=== PATIENT | female | born 1970 | race Caucasian/White ===

== ENCOUNTER → 2016-12-29 | Outpatient (CLI) | payer OTHER ==
[~2016-12-29] MED LIST: DICL100G18 TP; METH10TA2 PO; OXYC-323 PO; PREG150C PO; RIZA10TA PO; TOPI100T8 PO; VENL225T PO
--- NOTE | 2016-12-29 13:09 | PAIN ---
DATE OF SERVICE: 12/29/2016 INITIAL CONSULTATION FOR PAIN CLINIC DATE OF SERVICE: 12/29/2016 CHIEF COMPLAINT: Neck and bilateral shoulders and upper extremity pain. SECONDARY COMPLAINT: Low back pain. HISTORY OF PRESENT ILLNESS: This is a 46-year-old female who presents with history of pain in neck, bilateral upper extremities and shoulders radiating to the arms and also low back pain radiating to the legs at times since about 2003. The patient reports she has been treated at outside facility since that time with diagnosis of cervical stenosis, lumbar stenosis, degenerative disk disease as well as fibromyalgia since that time and has been managed with methadone and oxycodone. The patient reports that this does decrease the pain significantly, but she still has significant pain resulting in a rating of around 7-8 on a scale of 10, most times. The patient reports it does get her through her day. 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 The patient is somewhat frustrated with his situation and has recently [facility] and needs reevaluation of her pain situation today. The patient reports her pain is worse in the base of the neck and shoulders, radiating to the upper extremities to some degree, somewhat worse on the right than the left, but can be just as bad on the left side. The patient reports it awakens her from sleep about 3 or more times at night every night. It does not affect her bowel or bladder control or ability to walk. She also some low back pain, which can keep her from walking farther distances, but usually about 20 minutes she reports she needs to sit and rest. The patient reports very sensitive even to the touch of her low back. Also, has migraine history headaches, fibromyalgia history. The patient has had trigger point injections in the past, also chiropractic treatment on and off, usually causes the pain to be worse. Trigger point, she is not sure if those had helped in the past or not, and they were usually in the shoulders and upper neck and back area. The patient reports disability rating from 0-10, 10 being the worst, is a 7 with family and home responsibilities and social activity, 8 with recreation, 9 with occupation, 10 with sexual behavior, 7 with self care and 5 with life support activities. Again, the patient has had no diagnostic studies at this time. PAST MEDICAL HISTORY: Significant for type 2 diabetes, constipation, headaches, depression and fibromyalgia. PREVIOUS SURGERY: Include x 3 and right knee cyst removed. CURRENT MEDICATIONS: Include methadone 10 mg 2 tablets morning and 2 tablets in the evening, oxycodone 5 mg on a p.r.n. basis, which the patient takes not every day, but sometimes takes 2 at times to decrease the pain when she has been more active; also Lyrica, venlafaxine, topiramate, rizatriptan and Voltaren gel. ALLERGIES: The patient states DURAGESIC PATCH causes nausea. FAMILY HISTORY: Significant for diabetes and some types of cancers. SOCIAL HISTORY: The patient does not smoke, drinks alcohol very rarely, maybe every 6 months or so, is , lives with her spouse, has 2 children living at home and is located in [place], [place], currently not working secondary to pain. REVIEW OF SYSTEMS: The patient's review of systems is positive for those items mentioned in history of present illness. All systems reviewed and otherwise negative. It is complete, full and well documented on the patient's chart. PHYSICAL EXAMINATION: VITAL SIGNS: Today, patient's blood pressure 136/92, pulse 105, respirations 16, temperature 98.3 degrees Fahrenheit, height is 5 feet 7 inches, weight is 212 pounds. GENERAL: The patient is awake, alert, oriented, appropriate, very pleasant demeanor. HEENT: Head shows normocephalic, atraumatic. Extraocular movements are intact and symmetrical. The patient does have some disconjugate gaze in the left eye. Oral cavity, mucous membranes moist and pink. Dentition is intact. NECK: Shows anterior throat supple without palpable lymphadenopathy noted. Swallow reflex is symmetrical. CHEST: Shows normal on inspection. Breath sounds clear to auscultation bilaterally. HEART: Shows S1 and S2 clear. No murmurs auscultated. ABDOMEN: Obese, soft, nontender, nondistended. No palpable organomegaly. No rebound or guarding demonstrated. BACK: The patient's back shows spine grossly midline, normal-appearing cervical lordotic curvature, thoracic kyphotic curvature, and lumbar lordotic curvature. No previous bruises, lesions, rashes or scars are noted. With palpation in the cervical paraspinous musculature shows symmetrical on inspection, but with palpation it is very tender diffusely throughout the middle and lower distribution of paraspinous muscles, some in the upper, but mostly in the middle and lower distributions ____ into the superior medial and lateral trapezius bilaterally, right equal to left, very firm and tender with palpation again diffusely without specific trigger points noted or radiation of pain demonstrated. The patient's back shows some moderate tenderness in the thoracic paraspinous musculature only diffusely again in the upper distribution. Low back shows symmetrical with paraspinous musculature, but with palpation shows significant tenderness bilaterally in the paraspinous muscles diffusely throughout the upper, middle and lower distribution bilaterally without significant radiation or trigger points, but significant pain noted. The patient shows good rotational motion of the lumbar spine, both laterally greater than 10 degrees right and left as well as extension greater than 10 degrees, forward flexion 45 degrees without exacerbation of pain, cervical distribution shows good rotation both laterally greater than 45 degrees, close to 90 degrees right and left with some mild guarding going to the right, but not with extension or flexion. She performs these without difficulty. EXTREMITIES: Upper extremities show deep tendon reflexes at 2+ in the biceps and triceps tendons. Lower extremities are 1+ patellar tendons and tendo calcaneus tendons. Motor exam is strong with petrography teacher strength rated at 5/5 as is biceps and triceps flexion. Lower extremities show 4/5 dorsiflexion, extension, quadriceps and hamstring flexion, but is symmetrical and equal. Peripheral pulses are 2+ in the radial distribution and 1+ posterior tibial and dorsalis pedis. No peripheral edema is noted in any of the extremities. IMPRESSION: 1. This is a 46-year-old female with approximate 12-year plus history of pain in the base of the neck, upper extremities and shoulders, low back, mid back and lower extremities. 2. Migraine headaches. 3. Fibromyalgia. 4. Diabetes. 5. Narcotic management. PLAN: Options were discussed with the patient at length today including conservative medical management, physical therapies, interventional techniques, diagnostic studies. The patient has had no diagnostic studies performed with significant pain and some radicular findings as well in the arms and legs and also has not had any conservative therapies done. We will first start with MRI scan, cervical and lumbar spines, to better differentiate any etiological cause of potential cervicalgia, low back pain and radicular pains in the cervical and lumbar distribution, also we will order physical therapy with water pool therapy to start as soon as possible as I feel she may benefit significantly from this. I also discussed her narcotic regimen. We will refill her methadone as well as oxycodone at this time as prescribed; however, we did discuss weaning these down once her diagnostic studies are obtained and once physical therapy has started. The patient is amenable to this, agrees to the plan. We will also have her urinalysis done today and have narcotic contract signed for medication and with the future weaning. The patient understands and agrees. Follow up in approximately 4 weeks as scheduled. The patient was given instruction as well as side effects to be aware of with medication as well as instructions given regarding the upcoming physical therapy appointments and strengthening and stretching exercises on her own at home. HUONG JOSEPH MD DR: ERIC/radha JOB#: [id number] / [id number]
== END | disposition home or self-care (01) ==
LOC: PNCL 08:40
PROVIDERS: ATTEND Anesthesiology
DX: M51.36 Other intervertebral disc degeneration, lumbar region (principal); G43.909 Migraine, unspecified, not intractable, without status migrainosus; K59.00 Constipation, unspecified; F32.9 Major depressive disorder, single episode, unspecified; E11.9 Type 2 diabetes mellitus without complications; M79.7 Fibromyalgia; M25.511 Pain in right shoulder; M54.2 Cervicalgia
CPT/HCPCS: 99214

== ENCOUNTER → 2017-01-07 | Outpatient (CLI) | payer OTHER ==
--- NOTE | 2017-01-07 11:50 | RAD ---
INDICATION: Chronic neck pain extending into both shoulders. TECHNIQUE: Sagittal T1, sagittal T2, sagittal STIR, axial T2, and axial T2 gradient sequences are provided. No comparison is available. FINDINGS: There is straightening of cervical lordosis. There is no worrisome marrow lesion. There is no endplate edema. There is no cord signal abnormality. The cervicomedullary junction is unremarkable. Degenerative findings by individual level are as follows: C2-C3: There is no canal or foraminal compromise. C3-C4: Minimal disc osteophyte complex is noted. There is minimal canal stenosis with midline AP diameter of 10 mm. There is no foraminal compromise. C4-C5: Disc osteophyte complex with tiny central protrusion is noted. There is mild cord flattening with midline AP diameter of the thecal sac narrowed to 7 mm. There is no foraminal compromise. C5-C6: Disc osteophyte complex with left paracentral protrusion is noted. There is buckling of ligamentum flavum. There is slight cord flattening on the left, midline AP diameter of the thecal sac is narrowed to 8 mm. There is no cord signal abnormality or foraminal narrowing. C6-C7: Disc osteophyte complex with left paracentral protrusion is noted. There is left lateral recess narrowing and mild cord flattening on the left. Midline AP diameter of the thecal sac is narrowed to 7-8 mm. There is no cord hyperintensity. There is no foraminal narrowing. C7-T1: There is no canal or foraminal compromise. Reference lines are not accurate, patient moved between sagittal and axial series. IMPRESSION: Degenerative changes in the cervical spine are greatest from C4-C5 through C6-C7. Electronically signed by: Ryan James MD (01/07/2017 11:47 AM) [id number]
--- NOTE | 2017-01-07 12:04 | RAD ---
INDICATION: Chronic low back pain. TECHNIQUE: Sagittal T1, sagittal T2, sagittal STIR, axial T1, and axial T2 sequences are provided. There is motion degradation greatest on the sagittal T2 sequence. No comparison is available. FINDINGS: There is slight anterolisthesis at L5-S1, there is otherwise no malalignment. There is no worrisome marrow lesion. There is fatty replacement of the endplates at L1-L2. There is disc desiccation greatest from L1-L2 through L3-L4. Disc height is relatively maintained. Conus medullaris is normal in signal intensity and in position. The numbering system assumes 5 lumbar type vertebral bodies. Findings by individual level are as follows: L1-L2: Disc bulge and facet hypertrophy are noted without canal or foraminal compromise. L2-L3: Disc osteophyte complex and minimal facet hypertrophy are noted without canal or foraminal compromise. L3-L4: There is a diffuse disc bulge. There is a herniation on the left which migrates superiorly, is both subarticular and foraminal. This measures 14 mm at its base, 5 mm AP, and 8 mm craniocaudal. There is also facet and ligamentum flavum hypertrophy. There is no canal stenosis, midline AP diameter of the thecal sac is 11 mm. There is left lateral recess narrowing which could explain an L4 radiculopathy. There is also minimal left foraminal narrowing. L4-L5: Minimal disc bulge and facet hypertrophy are noted without canal or foraminal compromise. L5-S1: Minimal disc bulge and facet hypertrophy are noted. There are probably bilateral L5 pars defects. There is no canal stenosis or foraminal compromise. IMPRESSION: 1. Mild degenerative changes in the lumbar spine. This includes a herniation at L3-L4 narrowing the left lateral recess and left neural foramen. 2. Suspected L5 pars defects with slight spondylolisthesis at L5-S1. Electronically signed by: Ryan James MD (01/07/2017 11:57 AM) [id number]
== END | disposition home or self-care (01) ==
LOC: MRI 10:20
PROVIDERS: ATTEND Anesthesiology
DX: M51.36 Other intervertebral disc degeneration, lumbar region (principal); M43.16 Spondylolisthesis, lumbar region; M50.323 Other cervical disc degeneration at C6-C7 level; M25.78 Osteophyte, vertebrae; Z88.4 Allergy status to anesthetic agent
CPT/HCPCS: 72141; 72148

== ENCOUNTER → 2017-02-23 | Outpatient (CLI) | payer OTHER ==
[~2017-02-23] MED LIST changes: +GLYB5TAB3 PO; +IOHEXOL 180 MG/ML 10 ML VIAL. ONE; +METF500T4 PO; +methylPREDNISolone ACETATE 40 MG/ML VIAL. ONE; +methylPREDNISolone ACETATE 80 MG/ML VIAL. ONE
--- NOTE | 2017-02-23 19:15 | PAIN ---
DATE OF SERVICE: 02/23/2017 DIAGNOSES: 1. Cervical radiculopathy with cervical degenerative disk disease. 2. Lumbar radiculopathy with lumbar degenerative disk disease and lumbar herniated disk. HISTORY OF PRESENT ILLNESS: The patient is a 46-year-old female who returns for followup status post cervical epidural steroid injection after medication management with diagnostic studies of MRIs of the cervical and lumbar distribution. The patient reports she did very well after the injection, about 75-100% improvement, 100% initially and now about 75% as time has gone on; it has been about one month since she had the injection. The patient reports still some pain that seems to be coming back in the base of the neck and shoulders, also some in the low back as well. The patient reports the pain as a 9 on a scale 10 at its worst, 8 on average, 6 on a scale of 10 at its least and is a 6 today. The patient reports aching becoming more constant in the base of the neck and shoulder, also more constant in the low back, worse with standing, walking, changing positions. It has been waking her from sleep occasionally, but not every night. She sleeps about 8 hours at a time most nights. She did very well again after the injection with near 100% improvement for about 3 weeks. The patient reports no new motor or sensory deficits, no new bowel or bladder incontinence or other complaints. PHYSICAL EXAMINATION: VITAL SIGNS: Blood pressure is 129/82, pulse 96, respirations 18, temperature 98.2 degrees Fahrenheit, height is 5 feet 5 inches, weight is 212 pounds. GENERAL: The patient is awake, alert, oriented, appropriate, very pleasant demeanor. HEENT: Head shows normocephalic, atraumatic. Extraocular movements are intact, symmetrical. Oral cavity: Mucous membranes moist and pink. Dentition intact. NECK: Shows anterior throat supple without palpable lymphadenopathy noted. Swallow reflex is symmetrical. CHEST: Shows normal with inspection. Breath sounds clear to auscultation bilaterally. HEART: S1, S2 clear. No murmurs auscultated. ABDOMEN: Soft, nontender, nondistended. No palpable organomegaly is noted. No rebound or guarding demonstrated. BACK: Shows spine grossly in the midline. Cervical lordotic curvature is normal and maintained as is lumbar lordotic curvature. Cervical paraspinous muscles show symmetrical on inspection, with palpation show some moderate tenderness with palpation of the inferior aspect of the cervical paraspinous muscles, slightly more on the left than the right, but present bilaterally, also into the lateral trapezius and superior medial trapezius with some moderate tenderness. No trigger points, no radiation of pain. The patient has good rotational motion of the cervical spine, both past 45 degrees right and left rotation as well as extension and forward flexion without difficulty. The patient's low back shows some moderate tenderness with palpation, but inspection shows symmetrical paraspinous musculature, good rotation laterally greater than 10 degrees right and left as well as extension greater than 10 degrees, forward flexion 45 degrees without difficulty. EXTREMITIES: Show upper extremity deep tendon reflexes 2+ in the biceps and triceps tendons. Lower extremities show 1+ patellar and tendo calcaneus tendons. Motor exam is strong with radiology physician assistant strength rated at 5/5 as is bicep, tricep flexion. Lower extremities show 4-5 dorsiflexion, extension, quads and hamstring flexion, but again symmetrical. Peripheral pulses are 2+ radial and 1+ posterior tibial. No peripheral edema is noted. Options were discussed with the patient. The patient's old chart was reviewed as her current medication regimen updated. Current review of systems updated today as well. We will proceed with a second cervical epidural steroid injection today with fluoroscopic guidance. Risks were again discussed including, but not limited to bleeding, infection, possibility of epidural hematoma, subsequent neurologic compromise, dural puncture headaches, spinal cord and/or nerve damage, side effects of steroid medication and poor results regarding pain control. The patient understands and wished to proceed. The patient will return to clinic in approximately 2 weeks for followup, was counseled on return appointment, activity level as well as side effects to be aware of. The patient also has been given refill for methadone 2 tablets in morning and 2 tablets in the evening, 10 mg each. She has been doing fairly well on this without side effects and has had appropriate K-TRACS reporting as well as urinalysis to date. The patient was given instruction as well as side effects to be aware of with medication, and will follow up in approximately 4 weeks as scheduled. DIAGNOSES: 1. Cervical radiculopathy with cervical degenerative disk disease. 2. Lumbar radiculopathy with lumbar degenerative disk disease and lumbar herniated disk. PROCEDURE: Cervical epidural steroid injection, translaminar approach C6 level using C-arm fluoroscopic guidance under sterile prep and drape using local anesthetic. MEDICATION INJECTED: A total of 120 mg Depo-Medrol plus 5 mL preservative-free normal saline and 2 mL Isovue for contrast. CONDITION AT DISCHARGE: Stable. The patient tolerated the procedure well, had no complications. HUONG JOSEPH MD DR: ERIC/radha JOB#: [id number] / [id number]
== END | disposition home or self-care (01) ==
LOC: PNCL 10:35
PROVIDERS: ATTEND Anesthesiology
DX: M50.123 Cervical disc disorder at C6-C7 level with radiculopathy (principal); M51.16 Intervertebral disc disorders with radiculopathy, lumbar region; Z88.5 Allergy status to narcotic agent
CPT/HCPCS: 62321; J1030; J1040

== ENCOUNTER → 2017-03-24 | Outpatient (CLI) | payer OTHER | END | disposition home or self-care (01) | LOC: PNCL 09:46 | DX: M51.16 Intervertebral disc disorders with radiculopathy, lumbar region (principal); M50.10 Cervical disc disorder with radiculopathy, unspecified cervical region; M25.562 Pain in left knee | CPT/HCPCS: 99212 ==

== ENCOUNTER → 2017-05-25 | Outpatient (CLI) | payer OTHER | END | disposition home or self-care (01) | LOC: PNCL 10:46 | DX: M51.16 Intervertebral disc disorders with radiculopathy, lumbar region (principal); M50.10 Cervical disc disorder with radiculopathy, unspecified cervical region; R25.1 Tremor, unspecified | CPT/HCPCS: 99212 ==

== ENCOUNTER → 2017-07-20 | Outpatient (CLI) | payer OTHER | END | disposition home or self-care (01) | LOC: PNCL 11:32 | DX: M51.16 Intervertebral disc disorders with radiculopathy, lumbar region (principal); M50.30 Other cervical disc degeneration, unspecified cervical region | CPT/HCPCS: 99212 ==

== ENCOUNTER → 2017-09-01 | Outpatient (CLI) | payer OTHER ==
[2017-09-01 10:55] LABS: ANION GAP 14 (6-14); BLOOD UREA NITROGEN 17 mg/dL (7-20); CALCIUM 9.1 mg/dL (8.5-10.1); CARBON DIOXIDE 21 mmol/L (21-32); CHLORIDE 103 mmol/L (98-107); CHOLESTEROL 169 mg/dL (0-200); CREATININE 0.8 mg/dL (0.6-1.0); GFR 77.9; GLUCOSE 237 mg/dL (70-99); HDLC 36 mg/dL (40-60); LDLC 63 mg/dL (0-100); NON-HDL CHOLESTEROL 133 mg/dL (0-129); POTASSIUM 3.9 mmol/L (3.5-5.1); SODIUM 138 mmol/L (136-145); TRIGLYCERIDES 351 mg/dL (0-150); VLDLC 70 mg/dL (0-40)
[2017-09-01 10:56] LABS: CHOLESTEROL/HDL RATIO 4.7
== END | disposition home or self-care (01) ==
LOC: LAB 10:17
DX: E11.9 Type 2 diabetes mellitus without complications (principal); E78.2 Mixed hyperlipidemia
CPT/HCPCS: 36415; 80048; 80061; 83036

== ENCOUNTER → 2017-09-14 | Outpatient (CLI) | payer OTHER | END | disposition home or self-care (01) | LOC: PNCL 11:58 | DX: M51.16 Intervertebral disc disorders with radiculopathy, lumbar region (principal); M50.10 Cervical disc disorder with radiculopathy, unspecified cervical region | CPT/HCPCS: 99212 ==

== ENCOUNTER → 2017-10-06 | Outpatient (CLI) | payer OTHER ==
[2017-10-06 12:35] LABS: ADD MAN DIFF? NO
[2017-10-06 12:41] LABS: BASO # 0.1 x10^3/uL (0.0-0.2); BASO % 1 % (0-3); EOS # 0.2 x10^3/uL (0.0-0.7); EOS % 2 % (0-3); LYMPH % 29 % (24-48); MEAN CORPUSCULAR HEMOGLOBIN 29 pg (25-35); MEAN CORPUSCULAR HGB CONC 33 g/dL (31-37); MEAN CORPUSCULAR VOLUME 88 fL (79-100); MONO # 0.5 x10^3/uL (0.0-1.1); MONO % 5 % (0-9); NEUT # 6.4 x10^3uL (1.8-7.7); NEUT % 63 % (31-73); PLATELET COUNT 243 x10^3/uL (140-400); RED BLOOD COUNT 4.81 x10^6/uL (3.50-5.40); RED CELL DISTRIBUTION WIDTH 13.8 % (11.5-14.5); WHITE BLOOD COUNT 10.1 x10^3/uL (4.0-11.0)
[2017-10-06 12:49] LABS: GLUCOSE 302 mg/dL (70-99)
[2017-10-06 12:49] LABS: BLOOD UREA NITROGEN 17 mg/dL (7-20); CREATININE 0.9 mg/dL (0.6-1.0)
[2017-10-06 13:15] LABS: PROTHROMBIN TIME PATIENT 12.3 SEC (11.7-14.0)
[2017-10-06 13:46] LABS: SEDIMENTATION RATE 5 (0-25)
== END | disposition home or self-care (01) ==
LOC: LAB 12:18
DX: G93.2 Benign intracranial hypertension (principal); G43.711 Chronic migraine without aura, intractable, with status migrainosus; E78.2 Mixed hyperlipidemia; E11.9 Type 2 diabetes mellitus without complications
CPT/HCPCS: 36415; 82565; 82947; 84520; 85025; 85610; 85651; 86141

== ENCOUNTER → 2017-11-11 | Outpatient (CLI) | payer OTHER ==
[~2017-11-11] MED LIST changes: -IOHEXOL 180 MG/ML 10 ML VIAL. ONE; -METF500T4 PO; +METF500T5 PO; +METO25TA4 PO; +MILN50TA PO; +TRAZ-85 PO; -methylPREDNISolone ACETATE 40 MG/ML VIAL. ONE; -methylPREDNISolone ACETATE 80 MG/ML VIAL. ONE
--- NOTE | 2017-11-12 04:14 | PAIN ---
DATE OF SERVICE: 11/11/2017 PROGRESS NOTE FOR PAIN CLINIC DIAGNOSES: 1. Lumbar radiculopathy with lumbar herniated disk and lumbar degenerative disk disease. 2. Cervical radiculopathy with cervical degenerative disk disease. HISTORY OF PRESENT ILLNESS: The patient is a 46-year-old female who returns for followup status post medication management with both methadone and Savella. The patient is also taking oxycodone only very sparingly. The patient reports that she has been doing fairly well and her neurologist has been able to get her headache pain much decreased with the addition of metoprolol. The patient reports that she still has pain in the back of the neck and shoulder as well as the upper back, mid back, low back and into the lower extremities. Also, some knee pain on the left side mostly at night. The patient reports no new motor or sensory deficits, no new bowel or bladder incontinence, some constipation as her only complaint, but without any other significant side effects with her medications. The patient reports she has been increasing distance walking and doing household activities with her medications and she is sleeping well at night about 7-8 hours with the medication. The patient reports no new changes. The patient reports pain is constant, severe, unbearable at times, aching, tight in the neck and shoulder as well as in the mid back and low back, worse with activity. The patient reports the pain is a 9 on a scale of 10 at its worst, 8 on average, 7 at its least and is a 7 today. PHYSICAL EXAMINATION: VITAL SIGNS: The patient's blood pressure is 135/85, pulse 87, respirations 16, temperature is 98.4 degrees Fahrenheit and weight is 208 pounds. GENERAL: The patient is awake, alert, oriented, appropriate, very pleasant demeanor. HEENT: Head shows normocephalic and atraumatic. Extraocular movements are intact and symmetrical. Oral cavity: Mucous membranes are moist and pink. Dentition is intact. NECK: Shows anterior throat is supple without palpable lymphadenopathy noted. Swallow reflex is symmetrical. CHEST: Shows normal on inspection. Breath sounds are clear to auscultation bilaterally. HEART: Shows S1 and S2 clear. No murmurs are auscultated. ABDOMEN: Obese, soft, nontender and nondistended. No palpable organomegaly is noted. No rebound or guarding demonstrated. BACK: Shows spine grossly in the midline. Normal appearing thoracic kyphosis, some minor flattening of the lumbar lordotic curvature. Lumbar paraspinous muscle shows symmetrical on inspection. On palpation shows some moderate tenderness bilaterally, but only diffusely throughout the upper, middle and lower distribution of the paraspinous muscles. EXTREMITIES: Lower extremities show deep tendon reflexes 1+ in the patellar and tendo calcaneus tendons are equal. Motor exam is strong with 5/5 dorsiflexion and extension. Peripheral pulses are 1+ posterior tibia. No peripheral edema is noted bilaterally. Options were discussed with the patient. The patient's old chart was reviewed as was her current medication regimen updated. Current review of systems updated today as well. We will refill the patient's methadone for a 2-month period. The patient has had appropriate K-TRACS reporting as well as appropriate urinalysis to date. Also refill oxycodone just 60 tablets of 5 mg size, Savella as well as Voltaren gel. The patient will return to the clinic in approximately 2 months or sooner if necessary. The patient was given instruction as well as side effects to be aware of with each of the medications. We will follow up as scheduled. HUONG JOSEPH MD DR: ERIC/radha JOB#: [id number] / [id number]
== END | disposition home or self-care (01) ==
LOC: PNCL 11:28
PROVIDERS: ATTEND Anesthesiology
DX: M51.16 Intervertebral disc disorders with radiculopathy, lumbar region (principal); M50.30 Other cervical disc degeneration, unspecified cervical region
CPT/HCPCS: 99212

== ENCOUNTER 2017-11-25 08:55 | Outpatient (CLI) | payer OTHER ==
[~2017-11-25 08:55] MED LIST changes: +LIDOCAINE WITH 8.4% SOD BICARB 3 ML DISP.SYRIN. INJ ONE
[2017-11-25 10:00] VITALS: BP 124/74
[2017-11-25 10:30] LABS: CSF PROTEIN 67.1 mg/dL (15.0-45.0)
[2017-11-25 10:47] LABS: CSF CLARITY CLEAR; CSF COLOR COLORLESS; CSF RBC COUNT 178; CSF WBC COUNT 4
[2017-11-25 11:00] VITALS: BP 106/62
[2017-11-25 12:00] VITALS: BP 133/73
[2017-11-25 13:00] VITALS: BP 133/66
--- NOTE | 2017-11-26 14:38 | RAD ---
Fluoroscopically guided lumbar puncture, 11/25/2017: History: Pseudotumor cerebri syndrome Under local anesthesia, aseptic conditions and fluoroscopic guidance a lumbar puncture was performed at the mid L3 level utilizing a 20-gauge spinal needle. The opening pressure was 15cm of water. The CSF was initially blood tinged and quickly cleared. A total of 9 cc of CSF was obtained and sent to the lab. The closing pressure was measured at 12 cm of water. The spinal needle was then removed and hemostasis obtained. 0.8 minutes of fluoroscopy time was utilized. 2 fluoroscopic spot images were recorded. The patient tolerated the procedure well. She will be observed by nursing personnel for 3 hours and then discharged if no problems develop.
[2017-11-27 17:17] LABS: HERPES SIMPLEX TYPE 1 Negative (Negative); HERPES SIMPLEX TYPE 2 Negative (Negative)
== END 2017-11-25 13:06 | disposition home or self-care (01) ==
LOC: RAD 08:55
PROVIDERS: ATTEND Psychiatry & Neurology Neurology
DX: G93.2 Benign intracranial hypertension (principal); Z88.6 Allergy status to analgesic agent
CPT/HCPCS: 62270; 77003; 82945; 84157; 87071; 87075; 87102; 87252; 87529; 89051

== ENCOUNTER 2017-11-26 07:53 | Emergency (ER) | payer OTHER ==
[~2017-11-26] VITALS: Ht 162.6 cm; Wt 92.5 kg
[~2017-11-26 07:53] MED LIST changes: -LIDOCAINE WITH 8.4% SOD BICARB 3 ML DISP.SYRIN. INJ ONE; +METF500T16 PO; -METF500T5 PO
--- NOTE | 2017-11-26 08:18 | PHYS DOC ---
Past Medical History Past Medical History: Migraines Adult General Chief Complaint Chief Complaint: HEADACHE HPI HPI Patient is a 46 year old female with a history of pseudo cebri tumor, migraine headaches, chronic pain/fibromyalgia, who presents today complaining of 9 out of 10 throbbing constant left-sided headache that began yesterday at 1500. Patient states yesterday morning she was seen as an outpatient at [facility] and had a spinal tap for chronic headaches. Patient states after the spinal tap she did not have any pain. She states later on she developed a headache and it has been going since then. She is also complaining of nausea denies vomiting. Denies any photophobia. Denies this being the worst headache in her life. She states she has not taken anything this morning for her symptoms. PCP Dr. Deepti Anne Neurologist Dr. Disla Review of Systems Review of Systems Constitutional: Denies fever or chills [] Eyes: Denies change in visual acuity, redness, or eye pain [] HENT: Denies nasal congestion or sore throat [] Respiratory: Denies cough or shortness of breath [] Cardiovascular: No additional information not addressed in HPI [] GI: Reports nausea. Denies abdominal pain, vomiting, bloody stools or diarrhea [ ] : Denies dysuria or hematuria [] Musculoskeletal: Denies back pain or joint pain [] Integument: Denies rash or skin lesions [] Neurologic: Reports headache, denies focal weakness or sensory changes [] Endocrine: Denies polyuria or polydipsia [] All other systems were reviewed and found to be within normal limits, except as documented in this note. Current Medications Current Medications Current Medications Medications (Trade) Dose Ordered Sig/Sondra Start Time Stop Time Status Last Admin Dose Admin Morphine Sulfate (Morphine Sulfate) 5 mg 1X ONCE 11/26/17 09:30 11/26/17 09:31 DC 11/26/17 09:41 5 MG Ondansetron HCl (Zofran) 4 mg 1X ONCE 11/26/17 08:30 11/26/17 08:31 DC 11/26/17 08:56 4 MG Sodium Chloride 1,000 ml @ 1,000 mls/hr 1X ONCE 11/26/17 08:30 11/26/17 09:29 DC 11/26/17 08:56 1,000 MLS/HR Allergies Allergies Allergies Coded Allergies Type Severity Reaction Last Updated Verified fentanyl Allergy Intermediate Nausea and Vomiting 12/29/16 Yes Physical Exam Physical Exam Constitutional: Well developed, well nourished, no acute distress, non-toxic appearance. [] HENT: Normocephalic, atraumatic, bilateral external ears normal, oropharynx moist, no oral exudates, nose normal. [] Eyes: PERRLA, EOMI, conjunctiva normal, no discharge. [] Neck: Normal range of motion, no tenderness, supple, no stridor. [] Cardiovascular:Heart rate regular rhythm, no murmur [] Lungs & Thorax: Bilateral breath sounds clear to auscultation [] Abdomen: Bowel sounds normal, soft, no tenderness, no masses, no pulsatile masses. [] Skin: Warm, dry, no erythema, no rash. [] Back: No tenderness, no CVA tenderness. [] Extremities: No tenderness, no cyanosis, no clubbing, ROM intact, no edema. [] Neurologic: Alert and oriented X 3, normal motor function, normal sensory function, no focal deficits noted. [] Psychologic: Affect normal, judgement normal, mood normal. [] Current Patient Data Vital Signs Vital Signs Date Time Temp Pulse Resp B/P (MAP) Pulse Ox O2 Delivery O2 Flow Rate FiO2 11/26/17 10:01 96 16 100 11/26/17 09:41 Room Air 11/26/17 08:03 98.2 183/94 (123) 98.2 Lab Values Laboratory Tests Test 11/26/17 08:25 White Blood Count 7.3 x10^3/uL (4.0-11.0) Red Blood Count 4.49 x10^6/uL (3.50-5.40) Hemoglobin 13.1 g/dL (12.0-15.5) Hematocrit 38.9 % (36.0-47.0) Mean Corpuscular Volume 87 fL (79-100) Mean Corpuscular Hemoglobin 29 pg (25-35) Mean Corpuscular Hemoglobin Concent 34 g/dL (31-37) Red Cell Distribution Width 14.2 % (11.5-14.5) Platelet Count 233 x10^3/uL (140-400) Neutrophils (%) (Auto) 57 % (31-73) Lymphocytes (%) (Auto) 35 % (24-48) Monocytes (%) (Auto) 6 % (0-9) Eosinophils (%) (Auto) 2 % (0-3) Basophils (%) (Auto) 1 % (0-3) Neutrophils # (Auto) 4.2 x10^3uL (1.8-7.7) Lymphocytes # (Auto) 2.5 x10^3/uL (1.0-4.8) Monocytes # (Auto) 0.4 x10^3/uL (0.0-1.1) Eosinophils # (Auto) 0.1 x10^3/uL (0.0-0.7) Basophils # (Auto) 0.1 x10^3/uL (0.0-0.2) Erythrocyte Sedimentation Rate 6 (0-25) Prothrombin Time 13.3 SEC (11.7-14.0) Prothrombin Time INR 1.1 (0.8-1.1) PTT 21 SEC (24-38) L Sodium Level 139 mmol/L (136-145) Potassium Level 3.8 mmol/L (3.5-5.1) Chloride Level 106 mmol/L (98-107) Carbon Dioxide Level 23 mmol/L (21-32) Anion Gap 10 (6-14) Blood Urea Nitrogen 6 mg/dL (7-20) L Creatinine 0.8 mg/dL (0.6-1.0) Estimated GFR (Cockcroft-Gault) 77.9 BUN/Creatinine Ratio 8 (6-20) Glucose Level 257 mg/dL (70-99) H Calcium Level 8.5 mg/dL (8.5-10.1) Total Bilirubin 0.2 mg/dL (0.2-1.0) Aspartate Amino Transferase (AST) 12 U/L (15-37) L Alanine Aminotransferase (ALT) 30 U/L (14-59) Alkaline Phosphatase 84 U/L (46-116) C-Reactive Protein, Quantitative 5.9 mg/L (0-3.3) H Total Protein 7.0 g/dL (6.4-8.2) Albumin 3.5 g/dL (3.4-5.0) Albumin/Globulin Ratio 1.0 (1.0-1.7) Ethyl Alcohol Level < 10 mg/dL (0-10) Laboratory Tests 11/26/17 08:25 Laboratory Tests 11/26/17 08:25 EKG EKG [] Radiology/Procedures Radiology/Procedures [] Course & Med Decision Making Course & Med Decision Making Pertinent Labs and Imaging studies reviewed. (See chart for details) This is a 46-year-old female patient with history of headaches who presents today with a headache that began yesterday after having a spinal tap. We will get labs, we will consult anesthesiologist for possible blood patch. 08:17 spoke to the anesthesiologist, he stated they will send somebody to the emergency room. 08:33 anesthesiologist in the Ed with patient did a blood patch. 10:09 patient feeling better. D/c to home and f/u PCP and neurologist in the course of this week. attestation: i did discuss case with midlevel sanjana Ang Disclaimer Sav Disclaimer This electronic medical record was generated, in whole or in part, using a voice recognition dictation system. Departure Departure Impression: Primary Impression: Headache Disposition: 01 HOME, SELF-CARE Condition: STABLE Referrals: DEEPTI ANNE MD (PCP) follow up with your primary care doctor and neurologist as soon as you can Patient Instructions: General Headache Without Cause, [id number] Additional Instructions: You were seen for a headache. You had a blood patch done. Take it slow today. Take your pain medicine at home as needed. Follow up with your doctors in the course of this week, come back to the ED if symptoms worsen. Problem Qualifiers Primary Impression: Headache Headache type: unspecified Headache chronicity pattern: unspecified pattern Intractability: not intractable Qualified Codes: R51 - Headache HOLLISTESSRAMIN BAUMANN Nov 26, 2017 08:18 YUDITH MCCAULEY MD Nov 26, 2017 15:47
[2017-11-26] MEDS ORDERED: ONDANSETRON PF 4 MG/2 ML VIAL. IV ONE (08:30)
[2017-11-26] MEDS ORDERED: MORPHINE SULFATE 10 MG/ML VIAL. IV ONE ×2 (08:30→09:30)
[2017-11-26] MEDS ORDERED: IV NORMAL SALINE 1000ML BAG 1,000 ML IV ONE (08:30)
[2017-11-26 08:36] LABS: BASO # 0.1 x10^3/uL (0.0-0.2); BASO % 1 % (0-3); EOS # 0.1 x10^3/uL (0.0-0.7); EOS % 2 % (0-3); HEMATOCRIT 38.9 % (36.0-47.0); HEMOGLOBIN 13.1 g/dL (12.0-15.5); LYMPH # 2.5 x10^3/uL (1.0-4.8); LYMPH % 35 % (24-48); MEAN CORPUSCULAR HEMOGLOBIN 29 pg (25-35); MEAN CORPUSCULAR HGB CONC 34 g/dL (31-37); MEAN CORPUSCULAR VOLUME 87 fL (79-100); MONO # 0.4 x10^3/uL (0.0-1.1); MONO % 6 % (0-9); NEUT # 4.2 x10^3uL (1.8-7.7); NEUT % 57 % (31-73); PLATELET COUNT 233 x10^3/uL (140-400); RED BLOOD COUNT 4.49 x10^6/uL (3.50-5.40); RED CELL DISTRIBUTION WIDTH 14.2 % (11.5-14.5); WHITE BLOOD COUNT 7.3 x10^3/uL (4.0-11.0)
[2017-11-26 08:44] LABS: CALCIUM 8.5 mg/dL (8.5-10.1); CREATININE 0.8 mg/dL (0.6-1.0); GFR 77.9; POTASSIUM 3.8 mmol/L (3.5-5.1)
[2017-11-26 08:51] LABS: ALBUMIN 3.5 g/dL (3.4-5.0); TOTAL BILIRUBIN 0.2 mg/dL (0.2-1.0)
[2017-11-26 08:52] LABS: PROTHROMBIN TIME PATIENT 13.3 SEC (11.7-14.0)
--- NOTE | 2017-11-26 09:08 | PDOC ---
Date and Time Called to see patient. History of migraine headaches with normal CT head. Had diagnostic LP yesterday morning. Developed "new" headache around 15:00. Headache is positional, resolves when supine, has associated nausea when up. Options discussed with patient. 65% success rate with blood patch discussed. Other option is to wait it out several more days. Patient desires me to proceed with epidural blood patch. Sitting, betadine prepx3 back and L elbow area, sterile technique with cap, mask ,gloves. 1% lidocaine local to back and L ac. 17T advanced to epidural space at L4,5. No CSF or blood noted. 22ml blood collected from L AC. Injected over 1.5 minutes. Tolerated well. Headache gone when erect. Instructed to lie flat for 1 hr in ED then to minimize activity for 6 hours after home. Current Medications Current Medications Sodium Chloride 1,000 ml @ 1,000 mls/hr 1X ONCE IV Last administered on at 08:56; Start 11/26/17 at 08:30; Stop 11/26/17 at 09:29 Ondansetron HCl (Zofran) 4 mg 1X ONCE IV Last administered on 11/26/17at 08:56 ; Start 11/26/17 at 08:30; Stop 11/26/17 at 08:31; Status DC Morphine Sulfate (Morphine Sulfate) 5 mg 1X ONCE IV Last administered on at 08:57; Start 11/26/17 at 08:30; Stop 11/26/17 at 08:31; Status DC Active Scripts Active Reported Metoprolol Tartrate 25 Mg Tablet 1 Tab PO DAILY Trazodone Hcl 50 Mg Tablet 1 Tab PO QHS Savella (Milnacipran Hcl) 50 Mg Tablet 1 Tab PO BID Glyburide 5 Mg Tablet 7.5 Mg PO DAILY Metformin Hcl 500 Mg Tablet 500 Mg PO BIDWMEALS Voltaren (Diclofenac Sodium) 100 Gm Gel..gram. 1 Gm TP QID PRN Methadone Hcl 10 Mg Tablet 2 Tab PO BID Maxalt (Rizatriptan Benzoate) 10 Mg Tablet 1 Tab PO UD PRN Topiramate 100 Mg Tablet 3 Tab PO HS Venlafaxine Hcl Er (Venlafaxine Hcl) 225 Mg Tab.er.24 1 Tab PO HS Percocet 5-325 Mg Tablet (Oxycodone/Acetaminophen) 1 Each Tablet 1 Tab PO BID Pertinent Labs/Test Laboratory Tests Test 11/26/17 08:25 White Blood Count 7.3 x10^3/uL (4.0-11.0) Red Blood Count 4.49 x10^6/uL (3.50-5.40) Hemoglobin 13.1 g/dL (12.0-15.5) Hematocrit 38.9 % (36.0-47.0) Mean Corpuscular Volume 87 fL (79-100) Mean Corpuscular Hemoglobin 29 pg (25-35) Mean Corpuscular Hemoglobin Concent 34 g/dL (31-37) Red Cell Distribution Width 14.2 % (11.5-14.5) Platelet Count 233 x10^3/uL (140-400) Neutrophils (%) (Auto) 57 % (31-73) Lymphocytes (%) (Auto) 35 % (24-48) Monocytes (%) (Auto) 6 % (0-9) Eosinophils (%) (Auto) 2 % (0-3) Basophils (%) (Auto) 1 % (0-3) Neutrophils # (Auto) 4.2 x10^3uL (1.8-7.7) Lymphocytes # (Auto) 2.5 x10^3/uL (1.0-4.8) Monocytes # (Auto) 0.4 x10^3/uL (0.0-1.1) Eosinophils # (Auto) 0.1 x10^3/uL (0.0-0.7) Basophils # (Auto) 0.1 x10^3/uL (0.0-0.2) Prothrombin Time 13.3 SEC (11.7-14.0) Prothromb Time International Ratio 1.1 (0.8-1.1) Activated Partial Thromboplast Time 21 SEC (24-38) Sodium Level 139 mmol/L (136-145) Potassium Level 3.8 mmol/L (3.5-5.1) Chloride Level 106 mmol/L (98-107) Carbon Dioxide Level 23 mmol/L (21-32) Anion Gap 10 (6-14) Blood Urea Nitrogen 6 mg/dL (7-20) Creatinine 0.8 mg/dL (0.6-1.0) Estimated GFR (Cockcroft-Gault) 77.9 BUN/Creatinine Ratio 8 (6-20) Glucose Level 257 mg/dL (70-99) Calcium Level 8.5 mg/dL (8.5-10.1) Total Bilirubin 0.2 mg/dL (0.2-1.0) Aspartate Amino Transf (AST/SGOT) 12 U/L (15-37) Alanine Aminotransferase (ALT/SGPT) 30 U/L (14-59) Alkaline Phosphatase 84 U/L (46-116) C-Reactive Protein, Quantitative 5.9 mg/L (0-3.3) Total Protein 7.0 g/dL (6.4-8.2) Albumin 3.5 g/dL (3.4-5.0) Albumin/Globulin Ratio 1.0 (1.0-1.7) Ethyl Alcohol Level < 10 mg/dL (0-10) Laboratory Tests Test 11/26/17 08:25 White Blood Count 7.3 x10^3/uL (4.0-11.0) Red Blood Count 4.49 x10^6/uL (3.50-5.40) Hemoglobin 13.1 g/dL (12.0-15.5) Hematocrit 38.9 % (36.0-47.0) Mean Corpuscular Volume 87 fL (79-100) Mean Corpuscular Hemoglobin 29 pg (25-35) Mean Corpuscular Hemoglobin Concent 34 g/dL (31-37) Red Cell Distribution Width 14.2 % (11.5-14.5) Platelet Count 233 x10^3/uL (140-400) Neutrophils (%) (Auto) 57 % (31-73) Lymphocytes (%) (Auto) 35 % (24-48) Monocytes (%) (Auto) 6 % (0-9) Eosinophils (%) (Auto) 2 % (0-3) Basophils (%) (Auto) 1 % (0-3) Neutrophils # (Auto) 4.2 x10^3uL (1.8-7.7) Lymphocytes # (Auto) 2.5 x10^3/uL (1.0-4.8) Monocytes # (Auto) 0.4 x10^3/uL (0.0-1.1) Eosinophils # (Auto) 0.1 x10^3/uL (0.0-0.7) Basophils # (Auto) 0.1 x10^3/uL (0.0-0.2) Prothrombin Time 13.3 SEC (11.7-14.0) Prothromb Time International Ratio 1.1 (0.8-1.1) Activated Partial Thromboplast Time 21 SEC (24-38) Sodium Level 139 mmol/L (136-145) Potassium Level 3.8 mmol/L (3.5-5.1) Chloride Level 106 mmol/L (98-107) Carbon Dioxide Level 23 mmol/L (21-32) Anion Gap 10 (6-14) Blood Urea Nitrogen 6 mg/dL (7-20) Creatinine 0.8 mg/dL (0.6-1.0) Estimated GFR (Cockcroft-Gault) 77.9 BUN/Creatinine Ratio 8 (6-20) Glucose Level 257 mg/dL (70-99) Calcium Level 8.5 mg/dL (8.5-10.1) Total Bilirubin 0.2 mg/dL (0.2-1.0) Aspartate Amino Transf (AST/SGOT) 12 U/L (15-37) Alanine Aminotransferase (ALT/SGPT) 30 U/L (14-59) Alkaline Phosphatase 84 U/L (46-116) C-Reactive Protein, Quantitative 5.9 mg/L (0-3.3) Total Protein 7.0 g/dL (6.4-8.2) Albumin 3.5 g/dL (3.4-5.0) Albumin/Globulin Ratio 1.0 (1.0-1.7) Ethyl Alcohol Level < 10 mg/dL (0-10) LAST VITALS Vital Signs Date Time Temp Pulse Resp B/P (MAP) Pulse Ox O2 Delivery O2 Flow Rate FiO2 11/26/17 08:57 16 99 Room Air 11/26/17 08:03 98.2 85 183/94 (123) 98.2 JANNA LUBIN MD Nov 26, 2017 09:08
[2017-11-26 10:01] VITALS: BP 133/66
== END 2017-11-26 10:25 | disposition home or self-care (01) ==
LOC: ER 07:53
DX: R51 Headache (principal); R11.0 Nausea; G43.909 Migraine, unspecified, not intractable, without status migrainosus; G89.29 Other chronic pain; Z88.4 Allergy status to anesthetic agent
CPT/HCPCS: 36415; 80053; 85025; 85610; 85651; 85730; 86140; 96374; 96375; 96376; 99284; G0480; J2270; J2405; J7030

== ENCOUNTER 2017-11-29 15:45 | Emergency (ER) | payer OTHER ==
[~2017-11-29] VITALS: Ht 172.7 cm; Wt 92.5 kg
[2017-11-29 16:35] VITALS: BP 168/95
[2017-11-29] MEDS ORDERED: ONDANSETRON PF 4 MG/2 ML VIAL. IV ONE (16:45)
[2017-11-29] MEDS ORDERED: IV NORMAL SALINE 1000ML BAG 1,000 ML IV ONE (16:45)
[2017-11-29] MEDS ORDERED: methylPREDNISolone SOD SUCC PF 125 MG/2 ML VIAL. IV ONE (16:45)
[2017-11-29] MEDS ORDERED: MORPHINE SULFATE 4 MG/ML VIAL. IV/SQ PRN (16:45)
[2017-11-29 17:13] LABS: BASO # 0.1 x10^3/uL (0.0-0.2); BASO % 1 % (0-3); EOS # 0.1 x10^3/uL (0.0-0.7); EOS % 1 % (0-3); HEMATOCRIT 39.3 % (36.0-47.0); HEMOGLOBIN 13.2 g/dL (12.0-15.5); LYMPH # 3.5 x10^3/uL (1.0-4.8); LYMPH % 35 % (24-48); MEAN CORPUSCULAR HEMOGLOBIN 29 pg (25-35); MEAN CORPUSCULAR HGB CONC 34 g/dL (31-37); MEAN CORPUSCULAR VOLUME 87 fL (79-100); MONO # 0.5 x10^3/uL (0.0-1.1); MONO % 5 % (0-9); NEUT % 58 % (31-73); PLATELET COUNT 243 x10^3/uL (140-400); RED BLOOD COUNT 4.51 x10^6/uL (3.50-5.40); RED CELL DISTRIBUTION WIDTH 14.3 % (11.5-14.5); WHITE BLOOD COUNT 10.2 x10^3/uL (4.0-11.0)
[2017-11-29 17:27] LABS: CALCIUM 9.4 mg/dL (8.5-10.1); CREATININE 0.7 mg/dL (0.6-1.0); GFR 90.9; POTASSIUM 4.1 mmol/L (3.5-5.1)
[2017-11-29 17:42] LABS: ALBUMIN 3.6 g/dL (3.4-5.0); MAGNESIUM 1.6 mg/dL (1.8-2.4); TOTAL BILIRUBIN 0.3 mg/dL (0.2-1.0); TOTAL PROTEIN 7.3 g/dL (6.4-8.2)
--- NOTE | 2017-11-29 17:58 | RAD ---
CT scan of the head without contrast 11/29/2017 Clinical History: Headaches. Technique: Unenhanced, contiguous, 5 mm axial sections were obtained through the head. One or more of the following individualized dose reduction techniques were utilized for this study: 1. Automated exposure control. 2. Adjustment of the mA and/or kV according to patient size. 3. Use of iterative reconstruction technique. Findings: The ventricles and sulci are within normal limits in size and configuration. No area of abnormal attenuation seen involving brain parenchyma. No extra-axial fluid collection is seen. No skull fracture is noted. IMPRESSION: Negative study. CT scan of the cervical spine without contrast 11/29/2017 Clinical history: Neck pain. Technique: Unenhanced, contiguous, 0.625 mm axial sections were obtained through the cervical spine. Axial, coronal and sagittal reconstructed images were obtained. One or more of the following individualized dose reduction techniques were utilized for this study: 1. Automated exposure control. 2. Adjustment of the mA and/or kV according to patient size. 3. Use of iterative reconstruction technique. Findings: Sagittal and coronal reconstructed images demonstrate minimal lateral curvature of the cervical spine, convex to the left. There is slight reversal of the normal cervical lordosis. No fracture or subluxation cervical vertebrae is seen. Mild degenerative changes are seen involving the uncovertebral and facet joints throughout the cervical disc spaces. These findings do not result in definite areas of significant central spinal canal or neural foraminal stenosis. Impression: Mild degenerative changes are seen involving cervical spine as outlined above. These findings do not result in significant central spinal canal or neural foraminal stenosis. No acute osseous abnormality is seen. Electronically signed by: Kevin Duran MD (11/29/2017 5:55 PM) [facility]
[2017-11-29 18:03] LABS: CREATINE KINASE 24 U/L (26-192)
--- NOTE | 2017-11-29 18:05 | RAD ---
CT scan lumbar spine without contrast 11/29/2017 CLINICAL HISTORY: Low back pain. TECHNIQUE: Unenhanced, contiguous, 0.625 mm axial sections were obtained for lumbar spine. 3 mm reconstructed sagittal, axial and coronal images were obtained. One or more of the following individualized dose reduction techniques were utilized for this study: 1. Automated exposure control. 2. Adjustment of the mA and/or kV according to patient size. 3. Use of iterative reconstruction technique. FINDINGS: Sagittal and coronal reconstructed images demonstrate very mild S-shaped curvature of the thoracolumbar spine. Bilateral spondylolysis is seen at L5. Grade 1 spondylolisthesis of L5 in relation to S1 is noted. Degenerative changes are seen throughout the lumbar disc spaces consisting of varying degrees of disc space narrowing, vertebral endplate sclerosis and mild to moderate anterior vertebral body osteophyte formation. A 1 cm hemangioma is seen involving the T11 vertebral body. No acute fracture or subluxation of the lumbar vertebrae is seen. Old appearing fractures of the left transverse processes of the L2, L3 and L4 vertebrae are seen. The changes of degenerative disc disease are seen throughout the lumbar disc spaces. These consist of minimal to mild generalized disc bulges. Degenerative changes involving the facet joints and mild to moderate ligamentum flavum hypertrophy. These findings do not result in definite areas of significant central spinal canal or neural foraminal stenosis. IMPRESSION: 1. Bilateral spondylolysis at L5 with grade 1 spondylolisthesis at L5-S1. 2. Degenerative changes are seen throughout the lumbar spine. These findings do not result in significant spinal canal or neural foraminal stenosis. No acute osseous abnormality is seen. Electronically signed by: Kevin Duran MD (11/29/2017 6:02 PM) [facility]
[2017-11-29] MEDS ORDERED: BUTALB/APAP/CAFEIN 50/325/40MG TABLET. PO STA (19:05)
--- NOTE | 2017-11-29 19:15 | PHYS DOC ---
Past Medical History Past Medical History: Migraines Past Surgical History: , Other Additional Past Surgical Histo: right wrist; nose Alcohol Use: None Drug Use: None Adult General Chief Complaint Chief Complaint: HEADACHE HPI HPI Patient is a 46 year old female with a history of migraine headaches who presents today complaining of a throbbing 9 out of 10 migraine headache that began on 11/25/2017 after having a spinal-type. Patient states she normally has migraines around this time of the year but since the spinal tap this migraine appears worse. Patient states she was in the ED the day after spinal tap which is and had a blood patch. Patient states the blood patch helped for a while then the migraine returned. Patient denies this being the worst headache in her life. Denies any nausea vomiting. She states sometimes the pain radiates to bilateral upper extremities. She states sometimes she gets neck pain. Denies any nuchal rigidity. Review of Systems Review of Systems Constitutional: Denies fever or chills [] Eyes: Denies change in visual acuity, redness, or eye pain [] HENT: Denies nasal congestion or sore throat [] Respiratory: Denies cough or shortness of breath [] Cardiovascular: No additional information not addressed in HPI [] GI: Denies abdominal pain, nausea, vomiting, bloody stools or diarrhea [] : Denies dysuria or hematuria [] Musculoskeletal: Denies back pain or joint pain [] Integument: Denies rash or skin lesions [] Neurologic: Reports migraine headache, denies focal weakness or sensory changes [] All other systems were reviewed and found to be within normal limits, except as documented in this note. Current Medications Current Medications Current Medications Medications (Trade) Dose Ordered Sig/Sonrda Start Time Stop Time Status Last Admin Dose Admin Acetaminophen/ Butalbital/ Caffeine (Fioricet) 1 tab 1X STAT 11/29/17 19:05 11/29/17 19:11 DC 11/29/17 19:26 1 TAB Methylprednisolone Sodium Succinate (SOLU-Medrol 125MG VIAL) 125 mg 1X ONCE 11/29/17 16:45 11/29/17 16:48 DC 11/29/17 17:23 125 MG Morphine Sulfate (Morphine Sulfate) 4 mg PRN Q15MIN PRN 11/29/17 16:45 11/29/17 19:33 DC 11/29/17 17:24 4 MG Ondansetron HCl (Zofran) 4 mg 1X ONCE 11/29/17 16:45 11/29/17 16:48 DC 11/29/17 17:23 4 MG Sodium Chloride 1,000 ml @ 1,000 mls/hr 1X ONCE 11/29/17 16:45 11/29/17 17:44 DC 11/29/17 17:24 1,000 MLS/HR Allergies Allergies Allergies Coded Allergies Type Severity Reaction Last Updated Verified fentanyl Allergy Intermediate Nausea and Vomiting 12/29/16 Yes Physical Exam Physical Exam Constitutional: Well developed, well nourished, no acute distress, non-toxic appearance. [] HENT: Normocephalic, atraumatic, bilateral external ears normal, oropharynx moist, no oral exudates, nose normal. [] Eyes: PERRLA, EOMI, conjunctiva normal, no discharge. [] Neck: Normal range of motion, no tenderness, supple, no stridor. No nuchal rigidity. Cardiovascular:Heart rate regular rhythm, no murmur [] Lungs & Thorax: Bilateral breath sounds clear to auscultation [] Abdomen: Bowel sounds normal, soft, no tenderness, no masses, no pulsatile masses. [] Skin: Warm, dry, no erythema, no rash. [] Back: No tenderness, no CVA tenderness. [] Extremities: No tenderness, no cyanosis, no clubbing, ROM intact, no edema. [] Neurologic: Alert and oriented X 3, normal motor function, normal sensory function, no focal deficits noted. Cranial nerves II through XII intact Psychologic: Affect normal, judgement normal, mood normal. [] Current Patient Data Vital Signs Vital Signs Date Time Temp Pulse Resp B/P (MAP) Pulse Ox O2 Delivery O2 Flow Rate FiO2 11/29/17 17:24 16 11/29/17 16:35 69 100 11/29/17 16:11 98.6 198/106 (136) Room Air 98.6 Lab Values Laboratory Tests Test 11/29/17 17:00 White Blood Count 10.2 x10^3/uL (4.0-11.0) Red Blood Count 4.51 x10^6/uL (3.50-5.40) Hemoglobin 13.2 g/dL (12.0-15.5) Hematocrit 39.3 % (36.0-47.0) Mean Corpuscular Volume 87 fL (79-100) Mean Corpuscular Hemoglobin 29 pg (25-35) Mean Corpuscular Hemoglobin Concent 34 g/dL (31-37) Red Cell Distribution Width 14.3 % (11.5-14.5) Platelet Count 243 x10^3/uL (140-400) Neutrophils (%) (Auto) 58 % (31-73) Lymphocytes (%) (Auto) 35 % (24-48) Monocytes (%) (Auto) 5 % (0-9) Eosinophils (%) (Auto) 1 % (0-3) Basophils (%) (Auto) 1 % (0-3) Neutrophils # (Auto) 6.0 x10^3uL (1.8-7.7) Lymphocytes # (Auto) 3.5 x10^3/uL (1.0-4.8) Monocytes # (Auto) 0.5 x10^3/uL (0.0-1.1) Eosinophils # (Auto) 0.1 x10^3/uL (0.0-0.7) Basophils # (Auto) 0.1 x10^3/uL (0.0-0.2) Sodium Level 139 mmol/L (136-145) Potassium Level 4.1 mmol/L (3.5-5.1) Chloride Level 104 mmol/L (98-107) Carbon Dioxide Level 25 mmol/L (21-32) Anion Gap 10 (6-14) Blood Urea Nitrogen 12 mg/dL (7-20) Creatinine 0.7 mg/dL (0.6-1.0) Estimated GFR (Cockcroft-Gault) 90.9 BUN/Creatinine Ratio 17 (6-20) Glucose Level 138 mg/dL (70-99) H Lactic Acid Level 2.4 mmol/L (0.4-2.0) H Calcium Level 9.4 mg/dL (8.5-10.1) Magnesium Level 1.6 mg/dL (1.8-2.4) L Total Bilirubin 0.3 mg/dL (0.2-1.0) Aspartate Amino Transferase (AST) 20 U/L (15-37) Alanine Aminotransferase (ALT) 41 U/L (14-59) Alkaline Phosphatase 87 U/L (46-116) Creatine Kinase 24 U/L (26-192) L Creatine Kinase MB (Mass) 0.6 ng/mL (0.0-3.6) Creatine Kinase MB Relative Index % (0-4) Troponin I Quantitative < 0.017 ng/mL (0.000-0.055) XK-Aum-A-Type Natriuretic Peptide 50 pg/mL (0-124) Total Protein 7.3 g/dL (6.4-8.2) Albumin 3.6 g/dL (3.4-5.0) Albumin/Globulin Ratio 1.0 (1.0-1.7) Thyroid Stimulating Hormone (TSH) 2.050 uIU/mL (0.358-3.74) Ethyl Alcohol Level < 10 mg/dL (0-10) Laboratory Tests 11/29/17 17:00 Laboratory Tests 11/29/17 17:00 EKG EKG Interpreted by Dr. Kirk sinus rhythm HR 72 no STEMI[] Radiology/Procedures Radiology/Procedures []PROCEDURE: PORTABLE CHEST 1V EXAM: CHEST 1 VIEW History: Chest pain, headache COMPARISON: None available. TECHNIQUE: Single portable radiograph of the chest FINDINGS: The cardiac silhouette is unremarkable. The lungs are clear bilaterally. The costophrenic sulci are clear and well demarcated. IMPRESSION: No radiographic evidence of an acute cardiopulmonary process. Electronically signed by: Isael Gomes MD (11/29/2017 7:16 PM) [facility] DICTATED and SIGNED BY: ISAEL GOMES MD DATE: 11/29/171914 PROCEDURE: CT HEAD AND CERVICAL SPINE WO CT scan of the head without contrast 11/29/2017 Clinical History: Headaches. Technique: Unenhanced, contiguous, 5 mm axial sections were obtained through the head. One or more of the following individualized dose reduction techniques were utilized for this study: 1. Automated exposure control. 2. Adjustment of the mA and/or kV according to patient size. 3. Use of iterative reconstruction technique. Findings: The ventricles and sulci are within normal limits in size and configuration. No area of abnormal attenuation seen involving brain parenchyma. No extra-axial fluid collection is seen. No skull fracture is noted. IMPRESSION: Negative study. CT scan of the cervical spine without contrast 11/29/2017 Clinical history: Neck pain. Technique: Unenhanced, contiguous, 0.625 mm axial sections were obtained through the cervical spine. Axial, coronal and sagittal reconstructed images were obtained. One or more of the following individualized dose reduction techniques were utilized for this study: 1. Automated exposure control. 2. Adjustment of the mA and/or kV according to patient size. 3. Use of iterative reconstruction technique. Findings: Sagittal and coronal reconstructed images demonstrate minimal lateral curvature of the cervical spine, convex to the left. There is slight reversal of the normal cervical lordosis. No fracture or subluxation cervical vertebrae is seen. Mild degenerative changes are seen involving the uncovertebral and facet joints throughout the cervical disc spaces. These findings do not result in definite areas of significant central spinal canal or neural foraminal stenosis. Impression: Mild degenerative changes are seen involving cervical spine as outlined above. These findings do not result in significant central spinal canal or neural foraminal stenosis. No acute osseous abnormality is seen. Electronically signed by: Kevin Duran MD (11/29/2017 5:55 PM) [facility] DICTATED and SIGNED BY: KEVIN DURAN MD DATE: 11/29/17 1752 PROCEDURE: CT LUMBAR SPINE WO CONTRAST CT scan lumbar spine without contrast 11/29/2017 CLINICAL HISTORY: Low back pain. TECHNIQUE: Unenhanced, contiguous, 0.625 mm axial sections were obtained for lumbar spine. 3 mm reconstructed sagittal, axial and coronal images were obtained. One or more of the following individualized dose reduction techniques were utilized for this study: 1. Automated exposure control. 2. Adjustment of the mA and/or kV according to patient size. 3. Use of iterative reconstruction technique. FINDINGS: Sagittal and coronal reconstructed images demonstrate very mild S-shaped curvature of the thoracolumbar spine. Bilateral spondylolysis is seen at L5. Grade 1 spondylolisthesis of L5 in relation to S1 is noted. Degenerative changes are seen throughout the lumbar disc spaces consisting of varying degrees of disc space narrowing, vertebral endplate sclerosis and mild to moderate anterior vertebral body osteophyte formation. A 1 cm hemangioma is seen involving the T11 vertebral body. No acute fracture or subluxation of the lumbar vertebrae is seen. Old appearing fractures of the left transverse processes of the L2, L3 and L4 vertebrae are seen. The changes of degenerative disc disease are seen throughout the lumbar disc spaces. These consist of minimal to mild generalized disc bulges. Degenerative changes involving the facet joints and mild to moderate ligamentum flavum hypertrophy. These findings do not result in definite areas of significant central spinal canal or neural foraminal stenosis. IMPRESSION: 1. Bilateral spondylolysis at L5 with grade 1 spondylolisthesis at L5-S1. 2. Degenerative changes are seen throughout the lumbar spine. These findings do not result in significant spinal canal or neural foraminal stenosis. No acute osseous abnormality is seen. Electronically signed by: Kevin Duran MD (11/29/2017 6:02 PM) [facility] DICTATED and SIGNED BY: KEVIN DURAN MD DATE: 11/29/17 342 Course & Med Decision Making Course & Med Decision Making Pertinent Labs and Imaging studies reviewed. (See chart for details) After having a spinal tap on 11/25/2017. She had a blood patch done on 2017. She is back in the ED with a headache and states pain radiating to bilateral upper extremities. Patient's cardiac workup is negative. CT of the head cervical spine and lumbar spine are negative for any acute findings. Chest x-ray is negative for any acute findings. Lactic is 2.4 no known source for this elevated lactate. 18:52 consulted with anesthesiologist, they requested if patient wants another blood patch she needs to come back tomorrow morning through the emergency room and anesthesiologist to be called and they'll do another blood patch. Anesthesiologist also requested we give patient Fioricet and hydration. IV fluids had been ordered. Gave the patient information, patient currently very upset stating nobody has attended to her for the last 40 minutes. She states she was sent to the bathroom and, nobody came to check on her. She states she came back to the room and still nobody checked on her. Talked to the RN. I offered patient admission. Patient declined, she will be discharged to home and follow up with her own doctor. She has a PCP as well as neurologist. Dragon Disclaimer Dragon Disclaimer This electronic medical record was generated, in whole or in part, using a voice recognition dictation system. Departure Departure Impression: Primary Impression: Headache, chronic migraine without aura Disposition: 01 HOME, SELF-CARE Condition: STABLE Referrals: GRAEME SANTOS MD (PCP) follow up this week Patient Instructions: General Headache Without Cause, [id number] Additional Instructions: You were evaluated in the emergency room for migraine headache. Your anesthesiologist requested you come back tomorrow morning through the ED if you want a blood patch otherwise follow up with your primary care doctor and neurologist this week. Scripts Butalbital/Aspirin/Caffeine (FIORINAL 50-325-40 MG CAPSULE) 1 Each Capsule 1 EACH PO Q6HRS PRN for PAIN, #6 CAP Prov: RAMIN YEPEZ LIP OF SHANK CUTTER 11/29/17 Problem Qualifiers Primary Impression: Headache, chronic migraine without aura Status migrainosus presence: with status migrainosus Intractability: not intractable Qualified Codes: G43.701 - Chronic migraine without aura, not intractable, with status migrainosus RAMIN YEPEZ LIP OF SHANK CUTTER Nov 29, 2017 19:15
[2017-11-29] MEDS ORDERED: BUTA1CAP31 PO (19:19)
--- NOTE | 2017-11-29 19:19 | RAD ---
EXAM: CHEST 1 VIEW History: Chest pain, headache COMPARISON: None available. TECHNIQUE: Single portable radiograph of the chest FINDINGS: The cardiac silhouette is unremarkable. The lungs are clear bilaterally. The costophrenic sulci are clear and well demarcated. IMPRESSION: No radiographic evidence of an acute cardiopulmonary process. Electronically signed by: Isael Gomes MD (11/29/2017 7:16 PM) [facility]
--- NOTE | 2017-11-30 09:21 | EKG ---
[facility] [address] [place] [address] Test Date: 2017-11-29 Test Time: 18:27:03 Pat Name: ANSELMO HARRISON Department: Room: Gender: F Social Media Developer: JUNI : 1970 Requested By: RAMIN YEPEZ Order Number: [id number] Reading MD: Stephen Xiao MD Measurements Intervals [place] Rate: 72 P: -24 RI: 156 QRS: 52 QRSD: 88 T: 51 QT: 396 QTc: 435 Interpretive Statements SINUS RHYTHM NON-SPECIFIC ST/T CHANGES Electronically Signed On 12-01-2017 12:11:17 CDT by Stephen Xiao MD
== END 2017-11-29 19:33 | disposition home or self-care (01) ==
LOC: ER 15:45
DX: G43.701 Chronic migraine without aura, not intractable, with status migrainosus (principal); M43.17 Spondylolisthesis, lumbosacral region; M79.602 Pain in left arm; M79.601 Pain in right arm; Z88.4 Allergy status to anesthetic agent
CPT/HCPCS: 36415; 70450; 71045; 72125; 72131; 80053; 82553; 83605; 83735; 83880; 84443; 84484; 85025; 93005; 96374; 96375; 99285; G0480; J2270; J2405; J2930; J7030

== ENCOUNTER → 2018-01-06 | Outpatient (CLI) | payer OTHER ==
[~2018-01-06] MED LIST changes: +ATOR20TA58 PO; +BUTA1CAP31 PO; +DOCU-109 PO; +METF10007 PO; +RIZA5TAB7 PO
--- NOTE | 2018-01-06 19:48 | PAIN ---
DATE OF SERVICE: 01/06/2018 DIAGNOSES: 1. Lumbar radiculopathy with lumbar herniated disk and lumbar degenerative disk disease. 2. Cervical radiculopathy with cervical degenerative disk disease. HISTORY OF PRESENT ILLNESS: The patient is a 47-year-old female who returns for followup status post medication management with both methadone and oxycodone, also Savella and Voltaren gel. The patient reports she had been doing fairly well, has been on a fairly stable regimen. She says of some increased pain and headaches recently because she had a diagnostic lumbar puncture, which then developed into a spinal headache and she had to have a blood patch done and did not seem to help her general pain in her back or her neck or shoulders as well. The patient reports that has been somewhat worse, but again with the medications, reports about a 75% improvement overall without significant side effects from the medications. The patient reports generally does not awaken her from sleep at night, but still pain in the base of the neck and shoulders, mid back, upper back, low back, upper extremities, and lower extremities. The patient reports is a 9 on a scale of 10 at its worst, 7 on average, 7 at its least, though Savella seem to help with some of the myofascial pain, however. The patient reports no new motor or sensory deficits. No new bowel or bladder incontinence or other complaints. PHYSICAL EXAMINATION: VITAL SIGNS: The patient's blood pressure 129/89, pulse 79, respirations 16, temperature 98.5 degrees Fahrenheit, weight is 208 pounds. GENERAL: The patient is awake, alert, oriented, appropriate, very pleasant demeanor. HEENT: Shows normocephalic, atraumatic. Extraocular movements are intact and symmetrical. Oral cavity: Mucous membranes moist and pink. Dentition is intact. NECK: Shows anterior throat supple without palpable lymphadenopathy noted. Swallow reflex is symmetrical. CHEST: Shows normal on inspection. Breath sounds clear to auscultation bilaterally. HEART: Shows S1, S2 clear. No murmurs auscultated. ABDOMEN: Soft, nontender, nondistended. No palpable organomegaly is noted. No rebound or guarding demonstrated. BACK: Shows spine grossly in the midline. Normal appearing thoracic kyphosis and some slight flattening of lumbar lordotic curvature. Lumbar paraspinous muscle shows symmetrical on inspection. On palpation shows some moderate tenderness as in the middle upper and thoracic paraspinous musculature, but only diffusely without radiation. Cervical paraspinous muscle shows some minimal tenderness with palpation. EXTREMITIES: The patient's upper extremities show deep tendon reflexes 2+ in the biceps and triceps tendons. Lower extremities are 1+ posterior tibial and the patellar tendons. Motor exam is strong with statistician theoretical strength rated at 5/5 as is biceps and triceps flexion. Lower extremities show about 4/5, but equal and symmetrical dorsiflexion, extension, quadriceps and hamstring flexion. Peripheral pulses are 2+ radial distribution and 1+ posterior tibial. No peripheral edema is noted at the extremities. Options were discussed with the patient. The patient's old chart was reviewed as is her current medication regimen updated. Current review of systems is updated today as well. We will refill the patient's oxycodone as well as methadone for a 2-month prescription as the patient has had very good results with this, been on very stable regimen, has appropriate K-TRACS reporting as well as appropriate urinalysis to date. The patient will follow up in approximately 2 months or sooner as necessary, was counseled as to the medications as well as side effects to be aware of. HUONG JOSEPH MD DR: ERIC/radha JOB#: [id number] / [id number]
== END | disposition home or self-care (01) ==
LOC: PNCL 10:32
PROVIDERS: ATTEND Anesthesiology
DX: M51.16 Intervertebral disc disorders with radiculopathy, lumbar region (principal); M50.10 Cervical disc disorder with radiculopathy, unspecified cervical region
CPT/HCPCS: 99212

== ENCOUNTER → 2018-01-27 | Outpatient (CLI) | payer OTHER ==
[2018-01-27 12:50] LABS: HEMATOCRIT 38.3 % (36.0-47.0); HEMOGLOBIN 13.2 g/dL (12.0-15.5); RED BLOOD COUNT 4.41 x10^6/uL (3.50-5.40); RED CELL DISTRIBUTION WIDTH 14.1 % (11.5-14.5); WHITE BLOOD COUNT 7.6 x10^3/uL (4.0-11.0)
[2018-01-27 13:16] LABS: CALCIUM 8.9 mg/dL (8.5-10.1); CHOLESTEROL/HDL RATIO 3.2; CREATININE 0.8 mg/dL (0.6-1.0); GFR 77.6; POTASSIUM 3.8 mmol/L (3.5-5.1)
[2018-01-27 20:18] LABS: HEMOGLOBIN A1C 8.3 % (4.8-5.6)
== END | disposition home or self-care (01) ==
LOC: LAB 12:21
PROVIDERS: ATTEND Family Medicine
DX: Z00.01 Encounter for general adult medical examination with abnormal findings (principal); E78.2 Mixed hyperlipidemia; E11.9 Type 2 diabetes mellitus without complications
CPT/HCPCS: 36415; 80048; 80061; 82043; 83036; 85027

== ENCOUNTER → 2018-02-10 | Outpatient (CLI) | payer OTHER ==
--- NOTE | 2018-02-10 16:21 | RAD ---
RENAL COMPLETE BILATERAL History: Pelvic pain for 2 weeks. Comparison: None. Findings: Multiple sonographic images of the kidneys and urinary bladder are submitted. Right kidney measured 10 x 5.5 x 5.7 cm. Left kidney measured 10.7 x 6.4 x 5.8 cm. There is no hydronephrosis of either kidney. Urinary bladder morphology is within normal limits. Estimated prevoid urinary bladder volume was 35 mL, voided to completion. Impression: 1. No significant abnormality is demonstrated. Electronically signed by: Gabe Jacobson MD (02/10/2018 4:18 PM) [id number]
[2018-02-10 16:34] LABS: ALBUMIN 3.4 g/dL (3.4-5.0); ALBUMIN/GLOBULIN RATIO 0.9 (1.0-1.7); CALCIUM 8.7 mg/dL (8.5-10.1); CREATININE 0.8 mg/dL (0.6-1.0); GFR 77.6; TOTAL BILIRUBIN 0.2 mg/dL (0.2-1.0); TOTAL PROTEIN 7.2 g/dL (6.4-8.2)
== END | disposition home or self-care (01) ==
LOC: US 15:29
PROVIDERS: ATTEND Family Medicine
DX: R82.2 Biliuria (principal); R10.2 Pelvic and perineal pain
CPT/HCPCS: 36415; 76770; 80053

== ENCOUNTER → 2018-03-08 | Outpatient (CLI) | payer OTHER ==
[~2018-03-08] MED LIST changes: -OXYC-323 PO; +OXYC1TAB15 PO
--- NOTE | 2018-03-08 23:33 | PAIN ---
DATE OF SERVICE: 03/08/2018 PROGRESS NOTE FOR PAIN CLINIC DIAGNOSES: 1. Lumbar radiculopathy with lumbar herniated disk, lumbar degenerative disk disease. 2. Cervical radiculopathy with cervical degenerative disk disease. 3. Myofascial pain. HISTORY OF PRESENT ILLNESS: The patient is a 47-year-old female who returns for followup status post medication management with both methadone and oxycodone. The patient reports she has had increased pain over the past few weeks as we had some colder weather, which is very typical with a fibromyalgia pain but her left shoulder is significantly painful even causing a sore throat, feeling a sensation in the left side of her neck and throat. The patient reports it is difficult to move. General pain has been worse with the colder weather and again is typical with her disease. The patient reports it is aching, sharp, tight, shooting, cramping, radiating, becoming more constant, more severe, more unbearable and awaken her from sleep about every 6 hours or so. The patient reports difficulty with daily activities, getting around, distance walking and doing household activities even sitting or driving a car. The patient reports the pain is a 10 on a scale of 10 at its worst, 8 on average, 8 at its least and is 8 today, again worse on the left shoulder area right now but also in the mid back, upper back, low back, bilateral knees, bilateral arms and hands and forearms and wrists and elbows and the right shoulder some extent but much worse on the left causing headaches as well. She has been taking some nasal Toradol, which helps with the headaches but not with the other muscular pain; Savella seems to help to some degree and Voltaren gel seems to decrease the pain to some extent on the left shoulder as well but only about 20%. The patient reports no side effects with the medications, reports overall about a 60%-75% improvement with the medications currently and again worse with colder weather. PHYSICAL EXAMINATION: VITAL SIGNS: Today, the patient's blood pressure 129/71, pulse 90, respirations 16, temperature 98.6 degrees Fahrenheit and weight is 210 pounds. GENERAL: The patient is awake, alert, oriented, appropriate and very pleasant demeanor. HEENT: Shows normocephalic and atraumatic. Extraocular movements with some strabismus. Oral cavity: Mucous membranes moist and pink. Dentition is intact. NECK: Shows anterior throat supple without palpable lymphadenopathy noted. Swallow reflex symmetrical. CHEST: Shows normal on inspection. Breath sounds clear to auscultation bilaterally. HEART: Shows S1 and S2 clear. No murmurs auscultated. ABDOMEN: Obese, soft, nontender and nondistended. No palpable organomegaly is noted. No rebound or guarding demonstrated. BACK: Shows spine grossly in the midline, normal-appearing cervical lordotic curvature, thoracic kyphotic curvature and lumbar lordotic curvature. With palpation of the paraspinous musculature in the cervical distribution is diffusely tender throughout without specific trigger points but very diffusely tender, more so on the left than the right. This is true into the superior medial and lateral trapezius on the left side much more tender than the right, difficulty with moving the left shoulder as well. Abduction at 45 degrees, very painful. Right side shows good rotation and motion. Thoracic paraspinous musculature shows again diffuse tenderness mostly in the upper distribution of the thoracic paraspinous muscles and the trapezius. Lumbar paraspinous muscles are symmetrical on inspection, with palpation shows very firm, diffuse tenderness throughout the upper, middle, lower distribution of the paraspinous musculature. EXTREMITIES: The patient's upper extremities show deep tendon reflexes at 2+ in the biceps and triceps tendons. Lower extremities are 1+ patellar and tendo-calcaneus tendons. Motor exam is approximately 4 on a scale of 5 but symmetrical with transportation technician strength, bicep and tricep flexion as well as the lower extremity dorsiflexion, extension and 4/5 and equal as well. Peripheral pulses are 2+ radial, 1+ posterior tibial. No peripheral edema is noted in any of the extremities, upper or lower. Options were discussed with the patient. The patient's old chart was reviewed as well as her current medication regimen updated. Current review of systems updated today as well. We will refill the patient's methadone as well as oxycodone and also Savella and Voltaren gel. The patient was encouraged to use some different heat techniques for her left shoulder and again with her fibromyalgia pain, it is typical for the pain to be migrating and severely debilitating which is at this time, especially with the left shoulder and throat. The patient will maintain motion and massage therapies and heat application as tolerated. The patient has had appropriate K-TRACS reporting as well as appropriate urinalysis to date. We will refill the patient's medications for a 2-month period for the controlled substances. The patient will return to the clinic at that time or sooner as necessary. HUONG JOSEPH MD DR: ERIC/radha JOB#: [id number] / [id number]
== END | disposition home or self-care (01) ==
LOC: PNCL 10:07
PROVIDERS: ATTEND Anesthesiology
DX: M51.16 Intervertebral disc disorders with radiculopathy, lumbar region (principal); M50.10 Cervical disc disorder with radiculopathy, unspecified cervical region; M79.18 Myalgia, other site
CPT/HCPCS: G0463

== ENCOUNTER → 2018-04-29 | Outpatient (CLI) | payer OTHER ==
[2018-04-29 11:40] LABS: CHOLESTEROL/HDL RATIO 3.4
[2018-04-29 20:11] LABS: HEMOGLOBIN A1C 7.9 % (4.8-5.6)
== END | disposition home or self-care (01) ==
LOC: LAB 11:00
PROVIDERS: ATTEND Family Medicine
DX: E11.9 Type 2 diabetes mellitus without complications (principal); E78.2 Mixed hyperlipidemia
CPT/HCPCS: 36415; 80061; 82043; 83036

== ENCOUNTER → 2018-05-25 | Outpatient (CLI) | payer OTHER ==
[~2018-05-25] MED LIST changes: +DAPA5TAB PO; +FLUT9.9S NS; +LUBI24CA7 PO; +TRAZ-118 PO; -TRAZ-85 PO
--- NOTE | 2018-05-26 00:31 | PAIN ---
DATE OF SERVICE: 05/25/2018 PROGRESS NOTE FOR PAIN CLINIC DIAGNOSES: 1. Lumbar radiculopathy with lumbar herniated disk, lumbar degenerative disk disease. 2. Cervical radiculopathy with cervical degenerative disk disease. 3. Myofascial pain. HISTORY OF PRESENT ILLNESS: The patient is a 47-year-old female who returns for followup status post medication management with methadone and oxycodone, also Voltaren gel and Savella. The patient reports she has been doing fairly well with this, has been on a stable regimen with about 75% improvement overall with the medications without significant side effects except for some occasional constipation. She has recently been taking some Amitiza. We tried some Symproic samples, which caused her to have significant diarrhea and she stopped taking this. The Amitiza seems to do a little better, she get this from her primary physician. The patient reports no other complaints. Still significant pain in the base of the neck, shoulders bilaterally, in the upper back, mid back and low back as well as the upper extremities. Worse with walking, standing, changing positions. The patient reports her hands are also aching and can be bothersome as well. Tight pain in the back and neck, it is radiating, constant, becoming severe, unbearable with certain activities, standing and walking for too longer periods, sitting using a computer or using a phone, even driving the car can cause the pain increased in the neck and shoulders as well. The patient reports it awakens her from sleep, but only about every 6-7 hours on average, but not every night. The patient rates her pain as an 8-9 on a scale of 10 at its worst, 8 on average, 8 at its least and is 8 today. The patient reports no new changes, no new motor or sensory deficits and no new side effects with her medications. PHYSICAL EXAMINATION: VITAL SIGNS: The patient's blood pressure is 121/78, pulse 99, respirations 16, temperature is 98.5 degrees Fahrenheit. Weight is 210 pounds. GENERAL: The patient is awake, alert, oriented, appropriate, very pleasant demeanor. HEENT: Head shows normocephalic, atraumatic. Extraocular movements intact and symmetrical. Oral cavity, mucous membranes are moist and pink. Dentition is intact. NECK: Shows anterior throat supple without palpable lymphadenopathy noted. Swallow reflex symmetrical. CHEST: Shows normal with inspection. Breath sounds are clear bilaterally. HEART: Shows S1, S2 clear. No murmurs auscultated. ABDOMEN: Obese, soft, nontender, nondistended. No palpable organomegaly is noted. No rebound or guarding demonstrated. BACK: Shows spine grossly in the midline. Normal appearing thoracic kyphosis, cervical lordotic curvature and lumbar lordotic curvature. Cervical paraspinous muscle shows symmetrical on inspection, on palpation shows some moderate tenderness throughout the upper, middle and lower distributions of paraspinous muscles diffusely bilaterally, but without radiation. Neck shows good rotational motion both laterally greater than 45 degrees right and left with full extension, full forward flexion without significant pain reported. The patient's mid back shows some moderate tenderness diffusely and the lower back shows some moderate tenderness as well throughout the upper, middle and lower distribution of paraspinous musculature again without radiation, without trigger points. EXTREMITIES: The patient's upper extremities show deep tendon reflexes at 2+ in the biceps, triceps tendons. Lower extremities are 1+ patellar and tendo calcaneus tendons are equal. Motor exam is strong with material crew supervisor strength rated at 5/5. Lower extremities show 4/5 dorsiflexion and extension, but symmetrical. Peripheral pulses are 1+, posterior tibial, 2+ radial. No peripheral edema is noted throughout. Options were discussed with the patient. The patient's old chart was reviewed as well as her current medication regimen updated and current review of systems updated today as well. We will proceed with refill of the patient's oxycodone as well as methadone for 2-month prescription. The patient has had appropriate urinalysis as well as appropriate K-TRACS reporting to date and we will fill this for 2-month period. The patient was given instructions as well as side effects to be aware of with each of the medications including Savella and Voltaren gel. The patient will have UA screen today as well as routine screening and will renew the patient's narcotic contract also. The patient was given a copy of this. The patient will follow up in approximately 2 months as scheduled or sooner if necessary. HUONG JOSEPH MD DR: ERIC/radha JOB#: [id number] / [id number]
== END | disposition home or self-care (01) ==
LOC: PNCL 10:46
PROVIDERS: ATTEND Anesthesiology
DX: M51.16 Intervertebral disc disorders with radiculopathy, lumbar region (principal); M51.36 Other intervertebral disc degeneration, lumbar region; M50.10 Cervical disc disorder with radiculopathy, unspecified cervical region; M79.18 Myalgia, other site
CPT/HCPCS: G0463

== ENCOUNTER → 2018-07-20 | Outpatient (CLI) | payer OTHER ==
--- NOTE | 2018-07-20 23:46 | PAIN ---
DATE OF SERVICE: 07/20/2018 DIAGNOSES: 1. Lumbar radiculopathy with lumbar herniated disk, lumbar degenerative disk disease. 2. Cervical radiculopathy with cervical degenerative disk disease. 3. Myofascial pain. HISTORY OF PRESENT ILLNESS: The patient is a 47-year-old female who returns for followup status post medication management with both methadone and oxycodone, also is using Voltaren gel and Savella. The patient reports she has been fairly steady with her pain level. She did fall about 3 weeks ago on her kitchen floor and fell on her left shoulder, which caused the increased pain in the base of the neck and shoulder on the left side, which has been disturbing her sleep to some extent over the past few weeks, but seems to be getting a little better on its own. The patient reports it is 9 on a scale of 10 at its worst, 8 on average, 7 at its least in the past week and is 7 today. The patient reports the pain is in the base of the neck, shoulders, upper back, mid back, low back, bilateral knees, hips, also elbows with some significant pain lately. The patient reports it is aching, sharp, tight, radiating, becoming constant, severe and unbearable at times; worse with walking, standing, change in positions, but again disturbing her from sleep fairly significantly and does not depend on what position, she lays in. The patient reports she has a fairly new mattress, which she hoped would help the pain, but has not so far. The patient reports no new bowel or bladder incontinence. She does report some significant constipation. She has tried Symproic, Movantik, all [id number] laxatives. The only one that has really helped is Amitiza, however, it has been very expensive, she is not able to acquire it at this time. PHYSICAL EXAMINATION: VITAL SIGNS: The patient's blood pressure is 115/68, pulse 88, respirations 18, temperature is 98.2 degrees Fahrenheit, height is 5 feet 4 inches, weight is 208 pounds. GENERAL: The patient is awake, alert, oriented, appropriate, very pleasant demeanor. HEENT: Head shows normocephalic, atraumatic. Extraocular movements intact and symmetrical. Oral cavity, mucous membranes are moist and pink. Dentition is intact. NECK: Shows anterior throat supple without palpable lymphadenopathy noted. Swallow reflex symmetrical. CHEST: Shows normal on inspection. Breath sounds clear to auscultation bilaterally. HEART: Shows S1, S2 clear. No murmurs auscultated. ABDOMEN: Soft, nontender, nondistended. No palpable organomegaly is noted. No rebound or guarding demonstrated. BACK: Shows spine grossly in the midline. Slight exaggeration of thoracic kyphosis, some minor decrease in the lordotic curvature of the cervical distribution. Lumbar paraspinous muscle shows symmetrical on inspection; with palpation shows some moderate tenderness diffusely throughout the upper, middle and lower distribution of paraspinous muscles in the lumbar distribution. This is true in the upper thoracic distribution as well as the cervical distribution throughout the upper, middle and lower distribution of the cervical paraspinous musculature, bilateral trapezius, somewhat worse on the left than the right, but without specific trigger points or rope-like musculature. It has diffuse tenderness throughout the muscle with palpation in the trapezius bilaterally, again worse on the left side. EXTREMITIES: The patient's upper extremities show deep tendon reflexes 2+ in the biceps, triceps tendons. Electromechanical Equipment Tester strength is 5/5 as is biceps and triceps flexion. The patient shows some moderate tenderness with shoulder shrug and resistance on the left side only, but without loss of strength on resistance. The patient's elbow shows some moderate tenderness over the medial and lateral epicondyle diffusely as well. The patient's lower extremities show deep tendon reflexes 1+ in the patellar and tendo-calcaneus tendons. Motor exam is strong with 5/5 dorsiflexion, extension, quadriceps and hamstring flexion. Peripheral pulses are 1+ posterior tibial. No peripheral edema is noted bilaterally. The patient has moderate tenderness in the medial aspect of the knees of the medial collateral ligaments, which is moderately tender, but not as much on the lateral aspect. The patient has good rotational motion, however, of the knee joints bilaterally both actively and passively. SKIN: Warm and dry, good turgor. No edema. No sores, rashes or bruising. Options were discussed with the patient. The patient's old chart was reviewed was the current medication regimen updated. Current review of systems updated today as well. She is doing fairly stable regimen with her medications, reports about a 75% improvement with medication until the last 3 weeks after she fell, which has not been quite effective. She is not taking much of the oxycodone as well and we will decrease the amount refilled today as well to only 30 tablets a month instead of 60. The patient will maintain her methadone at current regimen of 2 tablets in the morning, 2 in the evening as she does well with this without any side effects. The patient has had appropriate K-TRACS reporting as well as appropriate urinalysis to date as well and we will refill the patient's medications for a 2-month period, also Voltaren gel and refill of Savella. The patient will discuss with her primary physician preauthorizing her for some Amitiza as this seems to be the only medication that works for her constipation without significant side effects. The patient will follow in approximately 2 months or sooner as necessary, was counseled as to activity level as well as medication regimen and side effects to be aware of. HUONG JOSEPH MD DR: ERIC/radha JOB#: [id number] / [id number]
== END | disposition home or self-care (01) ==
LOC: PNCL 11:47
PROVIDERS: ATTEND Anesthesiology
DX: M51.16 Intervertebral disc disorders with radiculopathy, lumbar region (principal); M50.10 Cervical disc disorder with radiculopathy, unspecified cervical region; M79.18 Myalgia, other site
CPT/HCPCS: G0463

== ENCOUNTER → 2018-07-26 | Outpatient (CLI) | payer OTHER ==
[2018-07-26 12:41] LABS: HEMATOCRIT 37.9 % (36.0-47.0); RED BLOOD COUNT 4.69 x10^6/uL (3.50-5.40); RED CELL DISTRIBUTION WIDTH 14.8 % (11.5-14.5); WHITE BLOOD COUNT 9.1 x10^3/uL (4.0-11.0)
[2018-07-26 13:04] LABS: POTASSIUM 4.3 mmol/L (3.5-5.1)
[2018-07-26 22:08] LABS: HEMOGLOBIN A1C 7.2 % (4.8-5.6)
== END | disposition home or self-care (01) ==
LOC: LAB 12:19
PROVIDERS: ATTEND Family Medicine
DX: Z00.00 Encounter for general adult medical examination without abnormal findings (principal); E11.9 Type 2 diabetes mellitus without complications
CPT/HCPCS: 36415; 80048; 83036; 85027

== ENCOUNTER → 2018-09-21 | Outpatient (CLI) | payer OTHER ==
--- NOTE | 2018-09-21 13:54 | PAIN ---
DATE OF SERVICE: 09/21/2018 PROGRESS NOTE FOR PAIN CLINIC DIAGNOSES: 1. Lumbar radiculopathy with lumbar herniated disk and lumbar degenerative disk disease. 2. Cervical radiculopathy with cervical degenerative disk disease. 3. Myofascial pain. HISTORY OF PRESENT ILLNESS: The patient is a 47-year-old female who returns for followup status post medication management. The patient reports doing fairly well until has had increased pain in the base of the neck left arm and shoulder with some numbness in the hand and fingers on the left side and feels cold to her as well. This has been increasing over the past month or so, difficulty with sleeping, pain in the upper mid back as well, tingling, aching, sharp, radiating, becoming more constant, more unbearable, more severe and again sleep fairly significantly. The patient reports it is worse with activity using her left upper extremity with any repetitive motions, even reaching above her head with her left arm. The patient reports no loss of motor function, but significant tingling and fatigability of the left upper extremity. The patient reports the pain is a 9 on a scale of 10 at its worst, on the past week at 8 is average, 7 at its least and is an 8 today. The patient reports no motor loss, but significant pain as noted. The patient reports no significant side effects with her medications that she is not using the oxycodone. She feels it does not decrease her pain using the methadone and the Savella. PHYSICAL EXAMINATION: VITAL SIGNS: The patient's blood pressure 127/77, pulse 85, respirations 18, temperature 97.6 degrees Fahrenheit, height is 5 feet 4 inches, weight is 206 pounds. GENERAL: The patient is awake, alert, oriented, appropriate, very pleasant demeanor. HEENT: Head is normocephalic, atraumatic. Extraocular movements intact and symmetrical. Oral cavity: Mucous membranes are moist and pink. Dentition is intact. NECK: Shows anterior throat supple without palpable lymphadenopathy noted. Swallow reflex symmetrical. CHEST: Shows normal with inspection. Breath sounds clear to auscultation bilaterally. HEART: Shows S1, S2 clear. No murmurs auscultated. ABDOMEN: Obese, soft, nontender, nondistended. No palpable organomegaly is noted. No rebound or guarding demonstrated. BACK: Shows spine grossly in the midline. Normal appearing thoracic kyphosis and lumbar lordotic curvature. Lumbar paraspinous muscle shows symmetrical on inspection as well as thoracic and cervical paraspinal muscles. Cervical paraspinous musculature on palpation shows some moderate tenderness diffusely in the inferior aspect of the cervical paraspinous musculature as well as the middle distribution and into the superior medial trapezius bilaterally. EXTREMITIES: The patient's upper extremities show deep tendon reflexes at 2+ in the biceps, triceps tendons. Motor exam is strong with ticketing clerk strength rated at 4/5, left 5/5. Right bicep and tricep flexion likewise 4/5 on the left and 5/5 on the right. Peripheral pulses are 2+ radial distribution. No peripheral edema is noted bilaterally. Options were discussed with the patient. The patient's old chart was reviewed as her current medication regimen updated. Current review of systems updated today as well. We will order MRI scan of cervical spine as her radicular symptoms are returning significantly with some improvement in the upper musculature of the upper and mid back. Also, refill the patient's Savella as well as methadone and Voltaren gel. The patient was given instruction as well as side effects to be aware of each of the medications. The patient has had appropriate K-TRACS reporting as well as appropriate urinalysis to date and we will refill these for 2-month period with instructions, side effects to be aware of discussed. The patient will have MRI scan ordered. We will follow up once results are obtained from MRI scan. Also, the patient was given Medrol Dosepak with instructions, side effects to be aware of, to see if this may help with radicular pain in the meantime. HUONG JOSEPH MD DR: ERIC/radha JOB#: [id number] / [id number]
== END | disposition home or self-care (01) ==
LOC: PNCL 11:40
PROVIDERS: ATTEND Anesthesiology
DX: M51.16 Intervertebral disc disorders with radiculopathy, lumbar region (principal); M50.10 Cervical disc disorder with radiculopathy, unspecified cervical region; M79.18 Myalgia, other site
CPT/HCPCS: G0463

== ENCOUNTER → 2018-09-23 | Outpatient (CLI) | payer OTHER ==
--- NOTE | 2018-09-23 11:22 | RAD ---
MRI of the cervical spine without contrast 09/23/2018 CLINICAL HISTORY: Headaches and neck pain. TECHNIQUE: Unenhanced T1-weighted, T2-weighted and inversion recovery sagittal and gradient echo and T2-weighted axial images of the cervical spine were obtained. FINDINGS: Comparison is made to a CT scan of the cervical spine dated 11/29/2017. Mild lateral curvature of the cervical spine is seen convex to the left. There is reversal of the normal cervical lordosis. Degenerative signal changes are seen involving all of the disks of the cervical spine. The marrow signal of the visualized bony structures is within normal limits. No area of abnormal signal intensity is seen involving the cervical spinal cord. At the C2-3 and C3-4 disc spaces there are minimal generalized disc bulges. Mild degenerative changes are seen involving the uncovertebral and facet joints bilaterally. These findings do not result in significant central spinal canal or neural foraminal stenosis. At the C4-5 disc space there is a mild generalized disc bulge. Degenerative changes are seen involving the uncovertebral and facet joints bilaterally. These findings when combined do not result in significant central spinal canal or neural foraminal stenosis. At the C5-6 disc space there is a mild generalized disc bulge. This is eccentric to the left. Degenerative changes are seen involving the uncovertebral and facet joints bilaterally. These findings efface the anterior CSF without resulting in significant central spinal canal or neural foraminal stenosis. At the C6-7 disc space there is a mild generalized disc bulge. This is eccentric to the left. Degenerative changes are seen involving the uncovertebral and facet joints bilaterally. These findings when combined do not result in significant central spinal canal or neural foraminal stenosis. At the C7-T1 disc space there is a minimal generalized disc bulge. Degenerative changes are seen involving the facet joints bilaterally. These findings when combined do not result in significant central spinal canal or neural foraminal stenosis. IMPRESSION: Degenerative changes are seen throughout the cervical spine. These findings do not result in significant central spinal canal stenosis at any level. No neural foraminal stenosis is seen. Electronically signed by: Kevin Duran MD (09/23/2018 11:18 AM) [facility]
== END ==
LOC: MRI 14:28
PROVIDERS: ATTEND Anesthesiology
DX: M50.323 Other cervical disc degeneration at C6-C7 level (principal)
CPT/HCPCS: 72141

== ENCOUNTER → 2018-10-11 | Outpatient (CLI) | payer OTHER ==
[2018-10-11 23:12] LABS: HEMOGLOBIN A1C 7.3 % (4.8-5.6)
== END | disposition home or self-care (01) ==
LOC: LAB 11:10
PROVIDERS: ATTEND Family Medicine
DX: E11.9 Type 2 diabetes mellitus without complications (principal)
CPT/HCPCS: 36415; 83036

== ENCOUNTER → 2018-10-19 | Outpatient (CLI) | payer OTHER ==
[~2018-10-19] MED LIST changes: +IOHEXOL 180 MG/ML 10 ML VIAL. ONE; +methylPREDNISolone ACETATE 40 MG/ML VIAL. ONE; +methylPREDNISolone ACETATE 80 MG/ML VIAL. ONE
--- NOTE | 2018-10-19 09:54 | PAIN ---
DATE OF SERVICE: 10/19/2018 DIAGNOSES: 1. Lumbar radiculopathy with lumbar herniated disk and lumbar degenerative disk disease. 2. Cervical radiculopathy with cervical degenerative disk disease. 3. Myofascial pain. HISTORY OF PRESENT ILLNESS: The patient is a 47-year-old female who presents for followup of medication management and also obtain an MRI scan of the cervical spine after last visit showing generalized degenerative changes throughout the cervical spine not resulting in any significant central stenosis, but some generalized disk bulging at C2-C3 through C7-T1 with some eccentric left bulge at C6-C7 and C6-C5. The patient reports left side is significantly worse with pain in the base of the shoulder, arms, but present bilaterally. The patient reports base of the neck as well has just been having some headaches lately when she was standing up, which are sharp, stabbing headaches right in the frontal region. This lasts for about 20-30 seconds. The patient reports the pain in her shoulders and arms was much worse and is lasting much longer. The patient reports it is tingling, sharp, shooting pain, radiating, becoming more constant and severe, unbearable. The patient reports it is a 10 on a scale of 10 at its worst in the past week, 8 on average, 8 at its least and is an 8 today. The patient reports no new motor or sensory deficits, no new side effects with the medication. PHYSICAL EXAMINATION: VITAL SIGNS: The patient's blood pressure 133/75, pulse 95, respirations 18, temperature 98.2 degrees Fahrenheit, height is 5 feet 4 inches, weight is 205 pounds. GENERAL: The patient is awake, alert, oriented, appropriate, very pleasant demeanor. HEENT: Head is normocephalic, atraumatic. Extraocular muscles are intact and symmetrical. Oral cavity: Mucous membranes moist and pink. Dentition is intact. NECK: Shows anterior throat supple without palpable lymphadenopathy noted. Swallow reflex is symmetrical. CHEST: Shows normal with inspection. Breath sounds clear to auscultation bilaterally. HEART: Shows S1, S2 clear. No murmurs auscultated. ABDOMEN: Soft, nontender, nondistended. No palpable organomegaly is noted. No rebound or guarding demonstrated. BACK: Shows spine grossly in the midline, normal-appearing cervical lordotic curvature, thoracic kyphotic curvature and lumbar lordotic curvature. The patient's cervical paraspinous muscle shows symmetrical on inspection. On palpation shows some moderate tenderness diffusely, but without specific radiation. The patient has good rotational motion of cervical spine, both laterally as well as extension and flexion without significant difficulty. EXTREMITIES: The patient's upper extremities show deep tendon reflexes at 2+ in the biceps and triceps tendons. Motor exam is strong with panel instrument repairer strength rated 5/5 and equal and symmetrical. Options were discussed with the patient. The patient's old chart was reviewed as her current medication regimen updated. Current review of systems updated today as well. We will proceed with a cervical epidural steroid injection today with fluoroscopic guidance. Risks were discussed including, but not limited to bleeding, infection, possibility of epidural hematoma, subsequent neurologic compromise, dural puncture, headaches, spinal cord and/or nerve damage, side effects of steroid medication and poor results regarding pain control. The patient understands and wished to proceed. The patient will return to clinic in approximately 2 weeks for followup, was counseled on return appointment, activity level and side effects to be aware of. DIAGNOSIS: Cervical radiculopathy with cervical degenerative disk disease. PROCEDURE: Cervical epidural steroid injection, translaminar approach C6-C7 level using C-arm fluoroscopic guidance under sterile prep and drape using local anesthetic. MEDICATION INJECTED: A total of 120 mg of Depo-Medrol plus 5 mL of preservative-free normal saline and 2 mL of contrast. CONDITION AT DISCHARGE: Stable. The patient tolerated the procedure well, had no complications. HUONG JOSEPH MD DR: ERIC/radha JOB#: [id number] / [id number]
== END ==
LOC: PNCL 08:33
PROVIDERS: ATTEND Anesthesiology
DX: M50.123 Cervical disc disorder at C6-C7 level with radiculopathy (principal); M51.16 Intervertebral disc disorders with radiculopathy, lumbar region; M79.18 Myalgia, other site
CPT/HCPCS: 62321; J1030; J1040; Q9965

== ENCOUNTER → 2018-11-05 | Outpatient (CLI) | payer OTHER ==
[~2018-11-05] MED LIST changes: -IOHEXOL 180 MG/ML 10 ML VIAL. ONE; -methylPREDNISolone ACETATE 40 MG/ML VIAL. ONE; -methylPREDNISolone ACETATE 80 MG/ML VIAL. ONE
== END | disposition home or self-care (01) ==
LOC: SPEC 11:19
PROVIDERS: ATTEND Obstetrics & Gynecology
DX: N76.0 Acute vaginitis (principal); N94.10 Unspecified dyspareunia
CPT/HCPCS: 36415

== ENCOUNTER → 2018-11-08 | Outpatient (CLI) | payer OTHER ==
[2018-11-09 01:08] LABS: ESTRADIOL LEVEL 142.6 pg/mL (.); FSH 10.6 mIU/mL (.); LUTEINIZING HORMONE 12.5 mIU/mL (.); PROGESTERONE 7.2 ng/mL (.)
== END | disposition home or self-care (01) ==
LOC: LAB 13:36
PROVIDERS: ATTEND Obstetrics & Gynecology
DX: R23.2 Flushing (principal)
CPT/HCPCS: 36415; 82627; 82670; 83001; 83002; 84144; 84402; 84403; 84443

== ENCOUNTER → 2018-11-12 | Outpatient (CLI) | payer OTHER ==
--- NOTE | 2018-11-12 21:27 | PAIN ---
DATE OF SERVICE: 11/12/2018 PROGRESS NOTE FOR PAIN CLINIC DIAGNOSES: 1. Lumbar radiculopathy with lumbar degenerative disk disease with lumbar herniated disk. 2. Cervical radiculopathy with cervical degenerative disk disease. 3. Myofascial pain. HISTORY OF PRESENT ILLNESS: The patient is a 47-year-old female who returns for followup status post medication management with both methadone and Savella as well as Voltaren gel. The patient reports she has been doing fairly well with this and has been on a very stable regimen. She did have cervical epidural steroid injection on her last visit, reports about 50% improvement in pain, especially on the left side of the neck. The patient reports it relieved a lot of the pain on the left side of the neck and shoulder and some into the upper back as well and helped with numbness and tingling in the left arm as well. The patient reports her pain has been an 8 on a scale of 10 at its worst in the past week, 7 on average, 5 at its least and is a 5 today. It is mainly due to the low back pain. The patient reports no new motor or sensory deficits, no new bowel or bladder incontinence and no side effects with the medication. The patient has been increasing her distance walking, doing work activities with greater ease and comfort as well as home activities with greater ease and comfort. PHYSICAL EXAMINATION: VITAL SIGNS: The patient's blood pressure 119/77, pulse 91, respirations 16, temperature 98.8 degrees Fahrenheit, height is 5 feet 4 inches and weight is 207 pounds. GENERAL: The patient is awake, alert, oriented, appropriate, very pleasant demeanor. HEENT: Head shows normocephalic and atraumatic. Extraocular movements are intact and symmetrical. Oral cavity: Mucous membranes moist and pink. Dentition is intact. NECK: Shows anterior throat supple without palpable lymphadenopathy noted. Swallow reflex symmetrical. CHEST: Shows normal on inspection. Breath sounds are clear to auscultation bilaterally. HEART: Shows S1, S2 clear. No murmurs auscultated. ABDOMEN: Soft, obese, nontender and nondistended. MUSCULOSKELETAL: Back shows spine grossly in the midline. Cervical paraspinous muscle shows symmetrical on inspection and palpation shows some moderate tenderness diffusely, but only diffusely bilaterally without radiation. The patient has good rotational motion of the lumbar spine, both laterally as well as extension and flexion without significant difficulty. The patient's upper extremities show deep tendon reflexes 2+ in the biceps and triceps tendons. Motor exam is 5/5 director of medical staff services strength, bicep and tricep flexion and symmetrical. Peripheral pulses are 2+ in radial distribution. No peripheral edema is noted. The patient's low back shows moderate tenderness with palpation in the lumbar paraspinous muscles, although they are symmetrical in appearance. No trigger points, no radiation of pain. The patient's lower extremities show deep tendon reflexes 1+ in the patellar and tendo-calcaneus tendons. Motor exam is strong with 5/5 dorsiflexion and extension. Peripheral pulses are 1+ in the posterior tibial distribution but no edema is noted bilaterally as well. Options were discussed with the patient. The patient's old chart was reviewed as her current medication regimen updated. Current review of systems updated today as well. We will refill the patient's medications for a 2-month period, the methadone as well as Voltaren gel and Savella with instructions, side effects to be aware of. The patient had appropriate K-TRACS reporting as well as appropriate urinalysis to date. We will make this a 2-month prescription with instructions and side effects to be aware of discussed. The patient will follow up in approximately 2 months or sooner as necessary. We also discussed if the cervical radiculopathy becomes worse, to call prior to the next appointment if desiring further interventional techniques. HUONG JOSEPH MD DR: ERIC/radha JOB#: [id number] / [id number]
== END | disposition home or self-care (01) ==
LOC: PNCL 11:25
PROVIDERS: ATTEND Anesthesiology
DX: M50.10 Cervical disc disorder with radiculopathy, unspecified cervical region (principal); M51.16 Intervertebral disc disorders with radiculopathy, lumbar region; M79.18 Myalgia, other site
CPT/HCPCS: G0463

== ENCOUNTER → 2019-01-05 | Outpatient (CLI) | payer OTHER ==
[2019-01-05 16:40] LABS: CALCIUM 9.2 mg/dL (8.5-10.1); CREATININE 0.9 mg/dL (0.6-1.0); GFR 67.4; POTASSIUM 4.1 mmol/L (3.5-5.1)
[2019-01-06 07:15] LABS: HEMOGLOBIN A1C 6.8 % (4.8-5.6)
== END | disposition home or self-care (01) ==
LOC: LAB 15:29
PROVIDERS: ATTEND Family Medicine
DX: E11.9 Type 2 diabetes mellitus without complications (principal); E66.9 Obesity, unspecified
CPT/HCPCS: 36415; 80048; 83036; 84443

== ENCOUNTER → 2019-01-07 | Outpatient (CLI) | payer OTHER ==
--- NOTE | 2019-01-07 12:23 | PAIN ---
DATE OF SERVICE: 01/07/2019 PROGRESS NOTE FOR PAIN CLINIC DIAGNOSES: 1. Lumbar radiculopathy with lumbar degenerative disk disease and lumbar herniated disk. 2. Cervical radiculopathy with cervical degenerative disk disease. 3. Myofascial pain. HISTORY OF PRESENT ILLNESS: The patient is a 48-year-old female who returns for followup status post medication management with both methadone and oxycodone, also taking Zanaflex for muscle relaxation and using Voltaren gel for joint pain. The patient reports she is doing fairly well, has been on a very stable regimen with about 60% improvement overall without specific side effects. The patient reports still significant pain in the base of the neck, shoulders, upper back, mid back, low back, in the joints and elbows of the arms as well as the knees. The patient reports the pain is a 9 on a scale of 10 at its worst over the last week, 7 on average, 7 at its least and is a 7 today. The patient reports she is fatigued all the time, also has some interesting temperature changes with even very little activity. She can feel very warm and hot where she is sweaty, this happens after taking a shower as well or even doing a small amount of work or while cleaning her bedroom. The patient reports that she is shaky. She feels extremely cold when her pain is increased as well. The patient reports no new motor or sensory deficits, no new changes. The patient reports this pain awakens her sporadically from sleep, mainly in the base of neck and low back. PHYSICAL EXAMINATION: VITAL SIGNS: The patient's blood pressure 131/80, pulse 103, respirations 16, temperature 97.9 degrees Fahrenheit, weight is 206 pounds. GENERAL: The patient is awake, alert, oriented, appropriate, very pleasant demeanor. HEENT: Shows normocephalic, atraumatic. Extraocular movements are intact and symmetrical. Oral cavity: Mucous membranes moist and pink. Dentition is intact. NECK: Shows anterior throat supple without palpable lymphadenopathy noted. Swallow reflex symmetrical. CHEST: Shows normal on inspection. Breath sounds clear to auscultation bilaterally. HEART: Shows S1, S2 clear. No murmurs auscultated. ABDOMEN: Soft, nontender, nondistended. No palpable organomegaly is noted. No rebound or guarding demonstrated. BACK: Shows spine grossly in the midline. Normal appearing thoracic kyphosis, minor flattening of lumbar lordotic curvature. Moderate tenderness with palpation of the cervical paraspinous musculature appears symmetrical, but only diffusely throughout the upper, middle and lower distribution of paraspinous muscles as well as the bilateral trapezius musculature. This is true in the thoracic musculature as well as the upper, lower and middle lumbar musculature. EXTREMITIES: Lower extremities show deep tendon reflexes 1+ in the patellar tendons, biceps and triceps tendons are 2+. No peripheral edema is noted bilaterally. Peripheral pulses are 2+ radial, 1+ posterior tibial. Options were discussed with the patient. The patient's old chart was reviewed as her current medication regimen updated. Current review of systems updated today as well and we will refill the patient's methadone and oxycodone as well as Savella and Voltaren gel with instructions, side effects to be aware of. The patient had appropriate K-TRACS reporting as well as appropriate urinalysis to date. We will refill this for 2-month period of time. The patient was given instructions as well as side effects to be aware of with each of the medications and will follow up in approximately 2 months or sooner as necessary. The patient will also follow up with her primary care physician regarding temperature fluctuations and we encouraged her to have her thyroid levels checked as well. HUONG JOSEPH MD DR: ERIC/radha JOB#: [id number] / [id number]
== END | disposition home or self-care (01) ==
LOC: PNCL 10:21
PROVIDERS: ATTEND Anesthesiology
DX: M51.16 Intervertebral disc disorders with radiculopathy, lumbar region (principal); M50.10 Cervical disc disorder with radiculopathy, unspecified cervical region; M79.7 Fibromyalgia; M54.5 Low back pain
CPT/HCPCS: G0463

== ENCOUNTER → 2019-03-04 | Outpatient (CLI) | payer OTHER ==
--- NOTE | 2019-03-04 18:22 | PAIN ---
DATE OF SERVICE: 03/04/2019 PROGRESS NOTE FOR PAIN CLINIC DIAGNOSES: 1. Lumbar radiculopathy with lumbar degenerative disk disease and lumbar herniated disk. 2. Cervical radiculopathy with cervical degenerative disk disease. 3. Myofascial pain. HISTORY OF PRESENT ILLNESS: The patient is a 48-year-old female who returns for followup status post medication management with both methadone and oxycodone, also using Voltaren gel and Savella. The patient reports she is doing fairly well with the current regimen. No side effects with the medications. She does have some constipation, however, which Amitiza was working very well for, but she cannot afford the medications. She has been using oosr-[id number]-[id number] laxatives and fiber sources and Dulcolax, which seemed to help to some extent, but not the extent of the Amitiza. The patient reports still significant pain in the base of the neck and shoulders. She is getting worse in the right upper extremity, base of the neck radiating to the right arm and to the posterior aspect of the triceps and into the biceps anteriorly, the anterior and posterior forearms and hand with numbness and tingling. The patient also reports some numbness and tingling in her feet, which is causing her legs when she is sitting down. The patient reports her pain is worse in the neck and shoulders, mostly in the right arm as a 10 on a scale of 10 at its worst in the past week, 8 on average, 8 at its least and is 8/10 today. The patient reports no new motor or sensory deficits. The patient reports it awakens her from sleep about every 4-5 hours with the neck and shoulders with some fatigability in the arms, but no overt weakness or loss of function. PHYSICAL EXAMINATION: VITAL SIGNS: The patient's blood pressure is 140/70, pulse 96, respirations 18, temperature 98.4 degrees Fahrenheit, height is 5 feet 4 inches, weight is 208 pounds. GENERAL: The patient is awake, alert, oriented, appropriate, very pleasant demeanor. HEENT: Shows normocephalic, atraumatic. Extraocular movements are intact and symmetrical. Oral cavity shows mucous membranes moist and pink. Dentition is intact. NECK: Shows anterior throat supple without palpable lymphadenopathy noted. Swallow reflex symmetrical. CHEST: Shows normal on inspection. Breath sounds are clear to auscultation bilaterally. HEART: Shows S1, S2 clear. ABDOMEN: Obese, soft, nontender, nondistended. BACK: Shows spine grossly in the midline. Normal-appearing thoracic kyphosis and minor flattening of lumbar lordotic curvature. Cervical paraspinous muscle shows symmetrical on inspection, on palpation shows some moderate tenderness diffusely bilaterally going diffusely without significant radiation. The patient has good rotational motion of cervical spine, both laterally greater than 45 degrees as well as full extension, full forward flexion without significant pain as well. EXTREMITIES: Upper extremities show deep tendon reflexes 2+ in the biceps, triceps tendons. Motor exam is strong with senior mechanical engineer strength rated at 5/5 as is biceps and triceps flexion. Peripheral pulses are 2+ in radial distribution. No peripheral edema is noted bilaterally. Shoulder shrug is strong and intact without loss of strength on resistance. Lower extremities show deep tendon reflexes at 1+ patellar and tendo-calcaneus tendons. Motor exam is strong with 5/5 dorsiflexion, extension, quadriceps and hamstring flexion and symmetrical. Peripheral pulses are 1+ in posterior tibia. No peripheral edema is noted. Options were discussed with the patient. The patient's old chart was reviewed as her current medication regimen updated, current review of systems updated today as well. We will refill the patient's methadone as well as oxycodone, Voltaren gel and Savella for 2-month period. The patient has had appropriate K-TRACS reporting as well as appropriate urinalysis to date. We will have urinalysis done today as part of routine screening. Also, renew the patient's narcotic contract, which she was given a copy of as well. The patient will follow up in approximately 2 months or sooner as necessary, was given instructions as well as side effects to be aware of the medications. We also ordered new MRI scan of cervical spine as her right radicular symptoms are getting much worse with some overt fatigability in the right arm. Also try Medrol Dosepak in the meantime. The patient was given instructions and side effects to be aware of that as well. HUONG JOSEPH MD DR: ERIC/radha JOB#: [id number] / [id number]
== END | disposition home or self-care (01) ==
LOC: PNCL 11:06
PROVIDERS: ATTEND Anesthesiology
DX: M51.16 Intervertebral disc disorders with radiculopathy, lumbar region (principal); M50.10 Cervical disc disorder with radiculopathy, unspecified cervical region; M79.18 Myalgia, other site
CPT/HCPCS: G0463

== ENCOUNTER → 2019-03-17 | Outpatient (CLI) | payer OTHER ==
--- NOTE | 2019-03-17 12:54 | RAD ---
MRI Cervical Spine Without Contrast History: Neck pain, bilateral hand numbness Technique: Multiplanar, multi sequential noncontrast MR imaging was performed of the cervical spine. Comparison: 01/07/2017 Findings: Cervical cord caliber is within normal limits, no defined or expansile signal abnormality. There is again straightening of cervical spine, very mild reversal of the lordotic curvature centered near C4-5. There is no significant marrow edema. Cervical vertebral body stature and AP alignment are maintained. Intervertebral disc spaces are relatively preserved, multilevel mild disc desiccation and very mild narrowing of the C5-6 intervertebral disc space. There is somewhat diffuse narrowing of the cervical spinal canal on a developmental basis. There is mild mucosal thickening of visualized maxillary sinuses. C2-C3: Neural foramina and spinal canal are adequate. C3-C4: Central canal is borderline about 10 mm on development basis. Neural foramina are adequate. C4-C5: There is again negligible posterior central protrusion. Central canal is narrowed to about 7-8 mm mostly on developmental basis. Neural foramina are adequate. C5-C6: There is again negligible disc osteophyte complex and very shallow posterior protrusion. Central canal is narrowed to about 7-8 mm mostly on developmental basis. There is facet degenerative change greater on the right. Neural foramina are adequate. C6-C7: There is negligible disc osteophyte complex. Central canal is narrowed to about 8 to about 9 mm in part on developmental basis. Neural foramina are adequate. C7-T1: There is no additional spinal stenosis. Neural foramina are adequate. Impression: 1. There is somewhat diffuse narrowing of the cervical spinal canal on a developmental basis. There is a similar degree of central canal stenosis about 7 to 8 mm as described at C4-5 and C5-6 and to a somewhat lesser degree C6-7. There is no new significant cervical neural foramina compromise. Electronically signed by: Gabe Jacobson MD (03/17/2019 12:51 PM) [id number]
== END ==
LOC: MRI 10:47
PROVIDERS: ATTEND Anesthesiology
DX: M48.02 Spinal stenosis, cervical region (principal)
CPT/HCPCS: 72141

== ENCOUNTER → 2019-04-20 | Outpatient (CLI) | payer OTHER ==
--- NOTE | 2019-04-20 12:02 | EKG ---
[address] [place] [address] Test Date: 2019-04-20 Test Time: 11:58:09 Pat Name: ANSELMO HARRISON Department: Room: Gender: F Ring Facer: : 1970 Requested By: UGO DIGGS Order Number: [id number] Reading MD: Measurements Intervals [place] Rate: 108 P: 31 IA: 154 QRS: 41 QRSD: 78 T: 28 QT: 338 QTc: 457 Interpretive Statements SINUS TACHYCARDIA LOW LIMB LEAD VOLTAGE NO SPECIFIC ECG ABNORMALITIES RI6.02 Compared to ECG 11/29/2017 18:27:03 Sinus rhythm no longer present
[2019-04-20 12:19] LABS: BASO # 0.1 x10^3/uL (0.0-0.2); BASO % 1 % (0-3); EOS # 0.1 x10^3/uL (0.0-0.7); EOS % 1 % (0-3); HEMOGLOBIN 11.5 g/dL (12.0-15.5); LYMPH # 2.4 x10^3/uL (1.0-4.8); LYMPH % 35 % (24-48); MEAN CORPUSCULAR HEMOGLOBIN 24 pg (25-35); MEAN CORPUSCULAR HGB CONC 31 g/dL (31-37); MEAN CORPUSCULAR VOLUME 77 fL (79-100); MONO # 0.4 x10^3/uL (0.0-1.1); MONO % 5 % (0-9); NEUT # 3.9 x10^3/uL (1.8-7.7); NEUT % 57 % (31-73); PLATELET COUNT 258 x10^3/uL (140-400); RED BLOOD COUNT 4.81 x10^6/uL (3.50-5.40); RED CELL DISTRIBUTION WIDTH 17.6 % (11.5-14.5); WHITE BLOOD COUNT 6.8 x10^3/uL (4.0-11.0)
[2019-04-20 12:41] LABS: ALBUMIN 3.4 g/dL (3.4-5.0); CALCIUM 8.4 mg/dL (8.5-10.1); CREATININE 0.9 mg/dL (0.6-1.0); GFR 67.4; POTASSIUM 4.1 mmol/L (3.5-5.1); TOTAL BILIRUBIN 0.1 mg/dL (0.2-1.0); TOTAL PROTEIN 6.7 g/dL (6.4-8.2)
== END | disposition home or self-care (01) ==
LOC: LAB 11:40
PROVIDERS: ATTEND Psychiatry & Neurology Neurology
DX: G43.711 Chronic migraine without aura, intractable, with status migrainosus (principal)
CPT/HCPCS: 36415; 80053; 85025; 93005

== ENCOUNTER → 2019-04-29 | Outpatient (CLI) | payer OTHER ==
[~2019-04-29] MED LIST changes: +IOHEXOL 180 MG/ML 10 ML VIAL. ONE; +methylPREDNISolone ACETATE 40 MG/ML VIAL. ONE; +methylPREDNISolone ACETATE 80 MG/ML VIAL. ONE
--- NOTE | 2019-04-30 01:25 | PAIN ---
DATE OF SERVICE: 04/29/2019 PROGRESS NOTE FOR PAIN CLINIC DIAGNOSES: 1. Cervical radiculopathy with cervical degenerative disk disease. 2. Lumbar radiculopathy with lumbar degenerative disk disease and lumbar herniated disk. 3. Myofascial pain. HISTORY OF PRESENT ILLNESS: The patient is a 48-year-old female who returns for followup status post medication management with both methadone and oxycodone. The patient is also using Voltaren gel. She reports still significant pain in the base of neck, bilateral shoulders. We did do an MRI scan of the cervical spine showing C5-C6 central canal narrowed to 7-8 mm, mostly on developmental basis, but with very shallow posterior protrusion as well as some canal narrowing at C4-C5 and C6-C7 with central canal narrowed to about 8-9 mm at C6-C7 as well. The patient reports still significant pain in the base of the neck and shoulders, upper back, mid back, radiating to the upper extremities bilaterally, right and left essentially equal at this time, somewhat worse on the right in the past, but now equal. The patient reports the pain is a 10 on a scale of 10 at its worst over the past week, 9 on average, 8 at its least and is a 9 today. The patient reports it is aching and tight, cramping, radiating, becoming more constant, more severe and unbearable at times. The patient reports she has difficulty sleeping, waking her from sleep frequently. No new motor or sensory deficits. PHYSICAL EXAMINATION: VITAL SIGNS: The patient's blood pressure 120/63, pulse 90, respirations 16, temperature 98.6 degrees Fahrenheit, height is 5 feet 4 inches, weight is 207 pounds. GENERAL: The patient is awake, alert, oriented, appropriate, very pleasant demeanor. HEENT: Head shows normocephalic, atraumatic. Extraocular movements are intact and symmetrical. Oral cavity: Mucous membranes moist and pink. Dentition is intact. NECK: Shows anterior throat supple without palpable lymphadenopathy noted. Swallow reflex symmetrical. CHEST: Shows normal on inspection. Breath sounds are clear to auscultation bilaterally. HEART: Shows S1, S2 clear. No murmurs auscultated. ABDOMEN: Soft, nontender, nondistended. No palpable organomegaly is noted. No rebound or guarding demonstrated. BACK: Shows spine grossly in the midline. Normal appearing thoracic kyphosis, cervical lordotic curvature and lumbar lordotic curvature is slightly flattened. Cervical paraspinous muscle shows symmetrical on inspection, with palpation shows some moderate tenderness diffusely bilaterally, going diffusely without significant radiation. The patient has good rotational motion of cervical spine, but guarded with extension as well as right and left lateral rotation, but performed fully. The patient has full forward flexion performed without difficulty. EXTREMITIES: Upper extremities show deep tendon reflexes 2+ in the biceps, triceps tendons. Motor exam is strong with tractor driver strength rated at 5/5 and equal. Peripheral pulses are 2+. No peripheral edema is noted bilaterally. Options were discussed with the patient. The patient's old chart was reviewed as her current medication regimen updated. Current review of systems updated today as well. We will refill the patient's medications. She has had appropriate K-TRACS reporting as well as appropriate urinalysis to date. Also, we will proceed with a cervical epidural steroid injection today with fluoroscopic guidance. Risks were discussed including but not limited to bleeding, infection, possibility of epidural hematoma, subsequent neurological compromise, dural puncture, headaches, spinal cord and/or nerve damage, side effects of steroid medication and poor results regarding pain control. The patient understands and wished to proceed. The patient will return to clinic in approximately 2 weeks for followup. She was counseled as to return appointment, activity level and side effects to be aware of. DIAGNOSES: Cervical radiculopathy with cervical degenerative disk disease. PROCEDURE: Cervical epidural steroid injection, translaminar approach C6-C7 level using C-arm fluoroscopic guidance under sterile prep and drape using local anesthetic. MEDICATION INJECTED: A total of 120 mg Depo-Medrol plus 5 mL of preservative-free normal saline and 2 mL of contrast. CONDITION AT DISCHARGE: Stable. The patient tolerated the procedure well, had no complications. HUONG JOSEPH MD DR: ERIC/radha JOB#: [id number] / [id number]
== END | disposition home or self-care (01) ==
LOC: PNCL 11:40
PROVIDERS: ATTEND Anesthesiology
DX: M50.123 Cervical disc disorder at C6-C7 level with radiculopathy (principal); M51.16 Intervertebral disc disorders with radiculopathy, lumbar region; M79.18 Myalgia, other site; Z88.8 Allergy status to other drugs, medicaments and biological substances; Z98.890 Other specified postprocedural states
CPT/HCPCS: 62321; J1030; J1040; Q9965

== ENCOUNTER → 2019-06-27 | Outpatient (CLI) | payer OTHER ==
--- NOTE | 2019-06-27 14:54 | PAIN ---
DATE OF SERVICE: 06/27/2019 PROGRESS NOTE FOR PAIN CLINIC DIAGNOSES: 1. Lumbar radiculopathy with lumbar degenerative disk disease and lumbar herniated disk. 2. Cervical radiculopathy with cervical degenerative disk disease. 3. Myofascial pain. HISTORY OF PRESENT ILLNESS: The patient is a 48-year-old female, who returns for followup status post cervical epidural steroid injection x1 on 04/28/2019. The patient did very well with about 60%-70% improvement initially for the first month. Now, the pain is returning to about 40%-50% level. The patient reports it is in the base of neck and shoulders bilaterally, worse on the left than the right but present bilaterally. The patient reports it is 10 on a scale of 10 at its worst over the past week, 8 on average, and 7 at its least. Initially, she was doing much better with increased activity, household activities, traveling with greater ease and comfort, but the pain is returning now in the base of the neck and shoulders. The patient describes it as aching, sharp, dull, radiating, constant, sometimes severe, and unbearable. The patient reports no new motor or sensory deficits, no new changes. PHYSICAL EXAMINATION: VITAL SIGNS: The patient's blood pressure is 128/84, pulse 78, respirations 18, temperature 97.8 degree Fahrenheit, and weight is 204 pounds. GENERAL: The patient is awake, alert, oriented, appropriate, very pleasant demeanor. HEENT: Normocephalic, atraumatic. Extraocular movements are intact and symmetrical. Oral cavity: Mucous membranes are moist and pink. Dentition is intact. NECK: Shows anterior throat supple without palpable lymphadenopathy noted. Swallow reflex is symmetrical. CHEST: Shows normal on inspection. Breath sounds are clear bilaterally. HEART: Shows S1, S2, clear; no murmurs auscultated. ABDOMEN: Soft, nontender, and nondistended. No palpable organomegaly is noted. No rebound or guarding is demonstrated. BACK: Shows spine grossly in the midline. Cervical paraspinous musculature shows symmetrical on inspection with normal cervical lordotic curvature with slight increase in thoracic kyphosis. Cervical paraspinous musculature on palpation shows some moderate tenderness diffusely in the middle and lower distribution of paraspinous muscles, slightly more on the left than the right into the superior medial trapezius on the left, more tender than the right side as well. The patient reports no radiation of pain with palpation. No specific trigger points are palpated. EXTREMITIES: The patient's upper extremities show deep tendon reflexes at 2+ in the biceps and triceps tendons. Motor examination is strong with radio repairer strength rated at 5/5 as is bicep and tricep flexion equal. Peripheral pulses are 2+ radial. No peripheral edema is noted. IMPRESSION AND PLAN: Options were discussed with the patient. The patient's old chart was reviewed as well as her current medication regimen updated. Current review of systems is updated today as well. We will proceed with a second cervical epidural steroid injection today with fluoroscopic guidance. Risks were again discussed including but not limited to bleeding, infection, possibility of epidural hematoma, subsequent neurological compromise, dural puncture, headaches, spinal cord and/or nerve damage, side effects of steroid medication, and poor results regarding pain control. The patient understands and wished to proceed. The patient will return to clinic in approximately 2 weeks for followup. She was counseled on return appointment, activity level, and side effects to be aware of. DIAGNOSES: Cervical radiculopathy with cervical degenerative disk disease. PROCEDURE: Cervical epidural steroid injection, translaminar approach C6-C7 level using C-arm fluoroscopic guidance under sterile prep and drape using local anesthetic. MEDICATION INJECTED: A total of 120 mg Depo-Medrol plus 5 mL of preservative-free normal saline and 2 mL of contrast. CONDITION AT DISCHARGE: Stable. The patient tolerated procedure well and had no complications. HUONG JOSEPH MD DR: ERIC/radha JOB#: [id number] / [id number]
== END ==
LOC: PNCL 13:29
PROVIDERS: ATTEND Anesthesiology
DX: M50.123 Cervical disc disorder at C6-C7 level with radiculopathy (principal); M51.16 Intervertebral disc disorders with radiculopathy, lumbar region; M79.18 Myalgia, other site
CPT/HCPCS: 62321; J1030; J1040; Q9965

== ENCOUNTER → 2019-08-23 | Outpatient (CLI) | payer OTHER ==
[~2019-08-23] MED LIST changes: -DICL100G18 TP; +DICL100G54 TP; -IOHEXOL 180 MG/ML 10 ML VIAL. ONE; +[UNRECOGNIZED DRUG - OTHER] IM; -methylPREDNISolone ACETATE 40 MG/ML VIAL. ONE; -methylPREDNISolone ACETATE 80 MG/ML VIAL. ONE
--- NOTE | 2019-08-23 14:30 | PAIN ---
DATE OF SERVICE: 08/23/2019 PROGRESS NOTE FOR PAIN CLINIC DIAGNOSES: 1. Lumbar radiculopathy with lumbar degenerative disk disease and lumbar herniated disk. 2. Cervical radiculopathy with cervical degenerative disk disease. 3. Myofascial pain. HISTORY OF PRESENT ILLNESS: The patient is a 48-year-old female who returns for followup status post medication management with both methadone and oxycodone. The patient reports that she has been doing fairly well with this, still has some significant pain however in the base of the neck and shoulders, upper back, mid back as well as the low back. The patient reports no significant side effects with the medication, but still only about a 65% improvement with medications overall. The patient reports she has still been doing some physical therapy, stretches and strengthening exercises, using heat and massage therapies at home. She did have 2 cervical epidural steroid injections; reports the first one was quite helpful, but the second was not as significantly helpful. The patient rates her pain as a 9 on a scale of 10 at its worst over the past week, 8 on average, 7 at its least and is a 7 today. The patient reports she has aching, tight, shooting pain in the neck and shoulders, upper extremities as well as tingling in the feet and cramping in the feet. The pain in the shoulders and arms is radiating into the hands, constant, becoming severe and unbearable at times with activity, worse with repetitive motions, lifting items with her hands, reaching overhead with the hands, even with any repetitive weightbearing or driving. The patient reports no new motor or sensory deficits. She is using a new [id number] pain patch on the base of her neck at night, which does seem to be helping and is mostly using some herbal remedy combinations. PHYSICAL EXAMINATION: VITAL SIGNS: The patient's blood pressure is 128/87, pulse is 84, respirations 18, temperature 98.3 degrees Fahrenheit, weight is 207 pounds. GENERAL: The patient is awake, alert, oriented, appropriate, very pleasant demeanor. HEENT: Shows normocephalic, atraumatic. Extraocular movements are intact and symmetrical. Oral cavity shows mucous membranes moist and pink. Dentition is intact. NECK: Shows anterior throat supple without palpable lymphadenopathy noted. Swallow reflex symmetrical. CHEST: Shows normal on inspection. Breath sounds are clear bilaterally. HEART: Shows S1, S2 clear. ABDOMEN: Soft, obese, nontender, nondistended. No palpable organomegaly is noted. No rebound or guarding demonstrated. BACK: Shows spine grossly in the midline. Normal appearing thoracic kyphosis and minor flattening of lumbar lordotic curvature. Cervical lordotic curvature slightly flattened as well. Cervical paraspinous muscle shows symmetrical on inspection, with palpation shows some moderate tenderness diffusely bilaterally, but only diffusely in the cervical paraspinous musculature in the upper, middle and lower as well as the superior medial trapezius, slightly more tender on the left than the right, but without specific radiation. The patient has good rotational motion of the cervical spine, which is slightly guarded, right and left lateral, but performed fully and with good extension and full forward flexion without significant pain reported. EXTREMITIES: The patient's upper extremities show deep tendon reflexes 2+ in the biceps and triceps tendons. Motor exam is strong with site acquisition manager strength rated at 5/5 as is bicep and tricep flexion. Peripheral pulses are 2+ radial bilaterally. No peripheral edema is noted. Options were discussed with the patient. The patient's old chart was reviewed as her current medication regimen updated. Current review of systems updated today as well and we will proceed with a refill of the patient's medications today, methadone and oxycodone with instructions and side effects to be aware of. The patient has had appropriate K-TRACS reporting as well as appropriate urinalysis to date. We will make this a 2-month refill. The patient was given instructions once again and will follow up in approximately 2 months or sooner as necessary. HUONG JOSEPH MD DR: ERIC/radha JOB#: [id number] / [id number]
== END | disposition home or self-care (01) ==
LOC: PNCL 13:13
PROVIDERS: ATTEND Anesthesiology
DX: M51.16 Intervertebral disc disorders with radiculopathy, lumbar region (principal); M50.10 Cervical disc disorder with radiculopathy, unspecified cervical region; M79.18 Myalgia, other site
CPT/HCPCS: G0463-25

== ENCOUNTER → 2019-08-31 | Outpatient (CLI) | payer OTHER ==
[2019-08-31 13:06] LABS: BASO # 0.1 x10^3/uL (0.0-0.2); BASO % 1 % (0-3); EOS # 0.1 x10^3/uL (0.0-0.7); EOS % 1 % (0-3); HEMATOCRIT 37.1 % (36.0-47.0); HEMOGLOBIN 11.9 g/dL (12.0-15.5); LYMPH # 2.2 x10^3/uL (1.0-4.8); LYMPH % 29 % (24-48); MEAN CORPUSCULAR HEMOGLOBIN 25 pg (25-35); MEAN CORPUSCULAR HGB CONC 32 g/dL (31-37); MEAN CORPUSCULAR VOLUME 78 fL (79-100); MONO # 0.4 x10^3/uL (0.0-1.1); MONO % 5 % (0-9); NEUT # 4.7 x10^3/uL (1.8-7.7); NEUT % 63 % (31-73); PLATELET COUNT 259 x10^3/uL (140-400); RED BLOOD COUNT 4.77 x10^6/uL (3.50-5.40); RED CELL DISTRIBUTION WIDTH 17.4 % (11.5-14.5); WHITE BLOOD COUNT 7.4 x10^3/uL (4.0-11.0)
[2019-08-31 13:25] LABS: ALBUMIN 3.5 g/dL (3.4-5.0); CALCIUM 8.5 mg/dL (8.5-10.1); GFR 59.7; TOTAL BILIRUBIN 0.2 mg/dL (0.2-1.0)
[2019-08-31 13:36] LABS: FREE T4 0.85 ng/dL (0.76-1.46); THYROID STIM HORMONE (TSH) 2.011 uIU/mL (0.358-3.74)
== END | disposition home or self-care (01) ==
LOC: LAB 12:45
PROVIDERS: ATTEND Family Medicine
DX: M79.10 Myalgia, unspecified site (principal)
CPT/HCPCS: 36415; 80053; 82085; 82306; 82550; 83605; 84439; 84443; 85025

== ENCOUNTER → 2019-10-18 | Outpatient (CLI) | payer OTHER ==
--- NOTE | 2019-10-18 14:25 | PAIN ---
DATE OF SERVICE: 10/18/2019 PROGRESS NOTE FOR PAIN CLINIC DIAGNOSES: 1. Lumbar radiculopathy with lumbar degenerative disk disease and lumbar herniated disk. 2. Cervical radiculopathy with cervical degenerative disk disease. 3. Myofascial pain. HISTORY OF PRESENT ILLNESS: The patient is a 48-year-old female who returns for followup status post medication management with both methadone and oxycodone. The patient reports she has been doing fairly well with this, but having increased need of oxycodone recently because of increased pain. No specific injury or action that she is aware of, but has had increased pain in the base of the neck and shoulders, upper back, mid back, and low back. The patient reports burning and stabbing, aching type, shooting in the back and upper back, going to the low back, lower extremities, upper extremities bilaterally, radiating, constant, severe, unbearable at times, worse with activity, better with sitting or lying down, would have awaken her from sleep about every 5-6 hours. The patient reports she can usually reposition or get out of bed, change positions and get back to sleep. The patient reports no side effects with the medication and overall the pain medication generally ____ about 60-70% improvement, now it is about 50-60, but without specific side effects excluding constipation, for which she is using some MiraLax and hydration to counter as well as Senokot. PHYSICAL EXAMINATION: VITAL SIGNS: The patient's blood pressure is 102/56, pulse 91, respirations 18, temperature 98.0 degrees Fahrenheit, height is 5 feet 4 inches and weight is 206 pounds. GENERAL: The patient is awake, alert, oriented, appropriate, very pleasant demeanor. HEENT: Shows normocephalic, atraumatic. Extraocular movements are intact and symmetrical. Oral cavity: Mucous membranes moist and pink. Dentition is intact. NECK: Shows anterior throat supple without palpable lymphadenopathy noted. Swallow reflex symmetrical. CHEST: Shows normal on inspection. Breath sounds are clear bilaterally. HEART: Shows S1, S2 clear. No murmurs auscultated. ABDOMEN: Soft, nontender, nondistended. No palpable organomegaly is noted. No rebound or guarding demonstrated. BACK: Shows spine grossly in the midline. Normal-appearing thoracic kyphosis and some slight flattening of lumbar lordotic curvature. Lumbar paraspinous muscle shows symmetrical on inspection, on palpation shows some moderate tenderness diffusely bilaterally, but only diffusely without significant radiation. The patient has good rotational motion of lumbar spine, both laterally as well as extension and flexion with some mild tenderness throughout the rotational axes as well as extension and flexion, but without radiation. No tenderness over the spinous processes, sacrum, or sacroiliac regions. MUSCULOSKELETAL: Lower extremities show deep tendon reflexes at 1+ in the patellar and tendo calcaneus tendons. Motor exam is strong with 5/5 dorsiflexion and extension. Upper extremities show deep tendon reflexes 2+ in the biceps and triceps. Motor exam is strong with laundry laborer strength rated at 5/5 and equal as well. Peripheral pulses are 2+ radial, 1+ posterior tibial. The patient has diffuse tenderness throughout the upper and middle distribution of the thoracic paraspinous musculature as well as trapezius musculature, again diffusely without specific trigger points, but moderately tender to significantly tender in the mid rhomboid distribution in the middle thoracic, also diffuse tenderness throughout the lumbar paraspinous musculature as well as the lateral gluteus and/or slightly over the trochanter as on the bilateral lower extremities as well as the medial compartment of the knee and the superior medial aspect of the quadriceps, but without again specific trigger point areas. Options were discussed with the patient. The patient's old chart was reviewed as her current medication regimen updated. Current review of systems updated today as well. We will proceed with refill of the patient's medications, methadone as well as oxycodone. The patient has had appropriate K-TRACS reporting as well as appropriate urinalysis. We will have UA screen today as part of routine screening. The patient was given a 2-month prescription refill. She has had appropriate urinalysis and K-TRACS reporting to date. The patient was given instruction as well as side effects to be aware of the medications. Also, encouraged to try the MiraLax with different fluid for resolution. If she is having some trouble getting it to resolve, we will have her return to the clinic in approximately 2 months or sooner as necessary and also refill for Savella 50 mg twice daily. Again with instructions, side effects to be aware of discussed with each of the medications. The patient will follow up as scheduled or sooner if necessary. HUONG JOSEPH MD DR: Alexsandra JOB#: [id number] / [id number]
== END | disposition home or self-care (01) ==
LOC: PNCL 12:50
PROVIDERS: ATTEND Anesthesiology
DX: M51.16 Intervertebral disc disorders with radiculopathy, lumbar region (principal); M50.10 Cervical disc disorder with radiculopathy, unspecified cervical region; M79.18 Myalgia, other site; Z88.8 Allergy status to other drugs, medicaments and biological substances; Z79.899 Other long term (current) drug therapy
CPT/HCPCS: G0463

== ENCOUNTER → 2019-10-18 | Outpatient (CLI) | payer OTHER | END | disposition home or self-care (01) | LOC: LAB 14:17 | PROVIDERS: ATTEND Anesthesiology | DX: G89.4 Chronic pain syndrome (principal); Z79.891 Long term (current) use of opiate analgesic; Z79.899 Other long term (current) drug therapy ==

== ENCOUNTER → 2019-12-13 | Outpatient (CLI) | payer OTHER ==
--- NOTE | 2019-12-13 13:53 | PDOC ---
Progress Note - Pain Clinic Date of Service: DOS: DATE: 12/13/19 TIME: 13:48 Diagnosis: Dx: Lumbar radiculopathy with lumbar degenerative disease and lumbar herniated disc Cervical radiculopathy with cervical degenerative disc disease Myofascial pain History or Present Illness: HPI: 49-year female returns follow-up status post medication management with both methadone and oxycodone. Patient reports she is doing fairly well but having increased pain significantly specially at night she is waking up crying in the middle of the night also has pain throughout the day neck shoulders upper back mid back low back bilateral upper and lower extremities worse on the left than the right and left arm but the both lower extremities patient reports pain is a 10+ on a scale of 10 is worse over the past week 9 on average 8 its least is a 9 today patient describes the pain is aching sharp tight shooting radiating c onstant severe worse with any activity keeps her awake from sleep at night multiple times throughout the evening difficulty with walking changing positions sitting from standing etc.. Patient reports no loss of motor function no specific specific side effects except for some constipation which she is able to decrease with [id number] laxatives and hydration. Patient reports no new motor or sensory deficits no new changes but just significant increase in overall generalized pain. Physical Exam: VS: Pressure 130/84 pulse 90 respirations 18 temperature 98.6 F is 5 feet forges weight is 203 pounds PE: PHYSICAL EXAMINATION: GENERAL: The patient is awake, alert, oriented, appropriate, very pleasant d emeanor HEENT: Shows normocephalic, atraumatic. Extraocular movements are intact and symmetrical. Oral cavity: Mucous membranes moist and pink. NECK: Shows anterior throat supple without palpable lymphadenopathy noted. Swallow reflex symmetrical. CHEST: Shows normal on inspection. Breath sounds are clear bilaterally, no rales rhonchi or wheezes auscultated. HEART: Shows S1, S2 clear. No murmurs auscultated. ABDOMEN: Soft, nontender, nondistended, obese. No palpable organomegaly is noted. No rebound or guarding demonstrated. BACK: Shows spine grossly in the midline. Normal-appearing cervical lordotic curvature, patient shows good rotation motion though slightly guarded right and left lateral rotation cervical spine greater than 45 degrees closer 9 degrees as well as full extension full forward flexion. There is slightly increased thoracic kyphosis, some minor flattening of the lumbar lordotic curvature. Lumbar paraspinous muscles show symmetrical on inspection, on palpation shows some moderate tenderness diffusely throughout the upper, middle and lower distribution of the paraspinous muscles bilaterally and also into the lower thoracic paraspinous musculature, firm and tender, but without specific trigger points, without radiation of pain. The patient has good rotational motion of the lumbar spine, both laterally as well as extension and flexion without difficulty. No tenderness over the spinous processes, sacrum or sacroiliac regions. EXTREMITIES: Lower extremities show deep tendon reflexes 1+ in the patellar and tendo calcaneus tendons. Motor exam is 4 on a scale of 5 with right dorsiflexion, extension, quadriceps and hamstring flexion and 4/5 on the left. Peripheral pulses are 1+ posterior tibial. No peripheral edema is noted bilaterally. Lower extremities are warm and dry to touch, equal in color and appearance. Upper extremities show deep tendon reflexes 2+ in the bicep and triceps tendons and are equal motor exam is strong with strike plate attacher strength rated 5 out of 5 as is bicep and tricep flexion bilaterally peripheral pulses are 2+ radial. SKIN: Shows warm and dry, good turgor. No edema. No sores, rashes or bruising throughout. Procedure: Procedure: Options were discussed with the patient. Patient will chart reviews her current medication regimen updated current review of systems updated today as well. We will increase patient's methadone to 30 mg from 20 twice daily patient is given instructions will side effects be aware of also maintain patient's oxycodone, Vo ltaren gel, Savella. Patient given instructions will side effects be aware of each of the medications. Patient has had appropriate K tract report as well as appropriate urinalyses to date and we will make this for 2-month refill period. Patient return to clinic in approximate 2 months or sooner as necessary Medication Injected: Med Injected: None Condition at Discharge: Condition at Discharge: Condition at discharge is stable HUONG JOSEPH MD Dec 13, 2019 13:53
== END | disposition home or self-care (01) ==
LOC: PNCL 13:19
PROVIDERS: ATTEND Anesthesiology
DX: M51.16 Intervertebral disc disorders with radiculopathy, lumbar region (principal); M50.10 Cervical disc disorder with radiculopathy, unspecified cervical region; M79.18 Myalgia, other site; E78.5 Hyperlipidemia, unspecified; G43.909 Migraine, unspecified, not intractable, without status migrainosus; E11.9 Type 2 diabetes mellitus without complications; Z79.899 Other long term (current) drug therapy; Z79.84 Long term (current) use of oral hypoglycemic drugs
CPT/HCPCS: 99212; G0463

== ENCOUNTER → 2020-02-09 | Outpatient (CLI) | payer OTHER ==
--- NOTE | 2020-02-09 13:37 | PDOC ---
Progress Note - Pain Clinic Date of Service: DOS: DATE: 02/09/20 TIME: 13:33 Diagnosis: Dx: Lumbar radiculopathy with lumbar degenerative disease and lumbar herniated disc Cervical radiculopathy with cervical degenerative disc disease Myofascial pain History or Present Illness: HPI: 49-year-old female returns follow-up status post medication management with both methadone and oxycodone. Patient reports that she is doing very well on the current regimen with good control of the pain we increased the methadone to 30 mg on her last visit but she reports that she is not having significant need for this and it helped for about a week but she backed it down to 2 at a time on her own for total of 40 mg a day instead of 60. Patient reports no side effects with medication she is staying hydrated does have some constipation which she uses [id number] Metamucil for which is effective. Patient describes the pain is in the base the neck shoulders upper back mid back low back and "all over her entire body" patient describes pain as aching and sharp at times radiating constant can be unbearable worse with walking standing changing positions wakes her from sleep occasionally but not every night patient reports it is a 10 on scale 10 is worse over the past week 8 on average 7 its least as a 7 today. Physical Exam: VS: Blood pressure is 123/79 pulse 93 respirations 20 temperature 97.8 F weight is 202 pounds PE: PHYSICAL EXAMINATION: GENERAL: The patient is awake, alert, oriented, appropriate, very pleasant demeanor HEENT: Shows normocephalic, atraumatic. Extraocular movements are intact and symmetrical. Oral cavity: Mucous membranes moist and pink. Dentition is intact. NECK: Shows anterior throat supple without palpable lymphadenopathy noted. Swallow reflex symmetrical. CHEST: Shows normal on inspection. Breath sounds are clear bilaterally, no rales rhonchi or wheezes. HEART: Shows S1, S2 clear. No murmurs auscultated. ABDOMEN: Soft, nontender, nondistended, obese. No palpable organomegaly is noted. No rebound or guarding demonstrated. BACK: Shows spine grossly in the midline. Normal-appearing cervical lordotic curvature. Neck shows full rotation motion cervical spine both laterally greater than 45 degrees as well as full extension full forward flexion without significant increase in pain. Posterior cervical musculature shows moderately tender with palpation diffusely throughout the upper middle lower distribution but without trigger points or asymmetry. There is slightly increased thoracic kyphosis, some minor flattening of the lumbar lordotic curvature. Lumbar paraspinous muscles show symmetrical on inspection, on palpation shows some moderate tenderness diffusely throughout the upper, middle and lower distribution of the paraspinous muscles without specific trigger points, without radiation of pain. The patient has good rotational motion of the lumbar spine, both laterally as well as extension and flexion without significant difficulty. No tenderness over the spinous processes, sacrum or sacroiliac regions. EXTREMITIES: Lower extremities show deep tendon reflexes 1+ in the patellar and tendo calcaneus tendons. Motor exam is 5 on a scale of 5 with right dorsiflexion, extension, quadriceps and hamstring flexion and 5/5 on the left. Peripheral pulses are 1+ posterior tibial. No peripheral edema is noted bilaterally. Lower extremities are warm and dry to touch, equal in color and appearance. Upper extremities show deep tendon reflexes 2+ in the bicep and triceps tendons, motor exam is strong with 5 out of 5 packaging specialist strength bicep and tricep flexion. SKIN: Shows warm and dry, good turgor. No edema. No sores, rashes or bruising throughout. Procedure: Procedure: Options were discussed with the patient. Patient will chart was reviewed as her current medication regimen updated current review of systems updated today as well. We will refill patient's medication for 2-month. As she has had appropriate K. Trax reporting as well as appropriate urinalyses to date. Will decrease patient's methadone to 20 mg twice daily instead of 30. Patient was given instruction as well as side effects to be aware with each of the medications. Patient will follow up in approximately 2 months or sooner if necessary. Medication Injected: Med Injected: None Condition at Discharge: Condition at Discharge: Condition at discharge is stable. HUONG JOSEPH MD Feb 09, 2020 13:37
== END | disposition home or self-care (01) ==
LOC: PNCL 12:53
PROVIDERS: ATTEND Anesthesiology
DX: M51.16 Intervertebral disc disorders with radiculopathy, lumbar region (principal); M50.10 Cervical disc disorder with radiculopathy, unspecified cervical region; M79.18 Myalgia, other site; Z79.84 Long term (current) use of oral hypoglycemic drugs; Z79.899 Other long term (current) drug therapy; Z98.890 Other specified postprocedural states; Z88.6 Allergy status to analgesic agent
CPT/HCPCS: 99212; G0463

== ENCOUNTER → 2020-04-05 | Outpatient (CLI) | payer BC ==
--- NOTE | 2020-04-05 14:11 | PDOC ---
Progress Note - Pain Clinic Date of Service: DOS: DATE: 04/05/20 TIME: 14:06 Diagnosis: Dx: Lumbar radiculopathy with lumbar degenerative disease and lumbar herniated disc Cervical radiculopathy with cervical degenerative disc disease Myofascial pain History or Present Illness: HPI: 49-year-old female returns to follow-up status post medication management with methadone and oxycodone also Savella which helped significantly. Patient reports he is tolerating this very well but having trouble getting her Savella covered with her insurance as it has changed after the last month. Patient reports significant pain increase in Savella has been stopped in the pelvis and low back as well as upper back neck and shoulders bilaterally. Patient reports increased pain throughout her body even with light touch and hypersensitivity since the Savella has been unavailable. Patient reports her pain is a 10 on scale 10 is worse with the past week 9 on average 8 its least and is a 9 today. Patient reports it awakens her from sleep sporadically and is gotten worse since the Savella has been available as well. Describes pain as aching and shooting in the neck and shoulders upper back mid back and radiating constant in the low back and unbearable in the low back as well as the shoulders bilaterally. Physical Exam: VS: Blood pressure is 133/80 pulse 81 respirations 16 temperature 90.0 F height is 5 foot 4 inches weight is 204 pounds PE: PHYSICAL EXAMINATION: GENERAL: The patient is awake, alert, oriented, appropriate, very pleasant demeanor HEENT: Shows normocephalic, atraumatic. Extraocular movements are intact and symmetrical. NECK: Shows anterior throat supple without palpable lymphadenopathy noted. Swallow reflex symmetrical. CHEST: Shows normal on inspection. Breath sounds are clear bilaterally. HEART: Shows S1, S2 clear. No murmurs auscultated. ABDOMEN: Soft, nontender, nondistended, obese. No palpable organomegaly is noted. BACK: Shows spine grossly in the midline. Normal-appearing cervical lordotic curvature. Cervical paraspinous muscles show symmetrical inspection with palpation some moderate tenderness diffusely throughout the upper middle lower decrease the paraspinous muscles bilaterally without specific trigger points are very firm very tender bilaterally this is true into the superior medial and lateral trapezius as well. There is increased thoracic kyphosis, some minor flattening of the lumbar lordotic curvature. Lumbar paraspinous muscles show symmetrical on inspection, on palpation shows some moderate tenderness diffusely throughout the upper, middle and lower distribution of the paraspinous muscles bilaterally, but without specific trigger points, without radiation of pain. The patient has good rotational motion of the lumbar spine, both laterally as well as extension and flexion without significant difficulty. No tenderness over the spinous processes, sacrum or sacroiliac regions. EXTREMITIES: Lower extremities show deep tendon reflexes 1+ in the patellar and tendo calcaneus tendons. Motor exam is 4 on a scale of 5 with right dorsiflexion, extension, quadriceps and hamstring flexion and 4/5 on the left. Peripheral pulses are 1+ posterior tibial. No peripheral edema is noted bilaterally. Lower extremities are warm and dry to touch, equal in appearance. SKIN: Shows warm and dry, good turgor. No edema. No sores, rashes or bruising throughout. Procedure: Procedure: Options were discussed with the patient. Patient will chart reviews her current medication regimen updated current review of systems updated today as well. We will refill patient's medication methadone and oxycodone as well as Savella with instructions side effects to aware of with each of the medications. Patient has had appropriate K tracts reporting as well as appropriate urinalyses to date and we will make this a 2-month prescription refill. Patient will return to clinic in approximate 2 months or sooner as necessary. Medication Injected: Med Injected: None Condition at Discharge: Condition at Discharge: Condition at discharge is stable. HUONG JOSEPH MD Apr 05, 2020 14:11
== END | disposition home or self-care (01) ==
LOC: PNCL 13:30
PROVIDERS: ATTEND Anesthesiology
DX: M51.16 Intervertebral disc disorders with radiculopathy, lumbar region (principal); M50.10 Cervical disc disorder with radiculopathy, unspecified cervical region; M79.18 Myalgia, other site; E11.9 Type 2 diabetes mellitus without complications; E78.2 Mixed hyperlipidemia; E66.9 Obesity, unspecified; F32.9 Major depressive disorder, single episode, unspecified; G43.711 Chronic migraine without aura, intractable, with status migrainosus; G43.909 Migraine, unspecified, not intractable, without status migrainosus; Z98.890 Other specified postprocedural states; Z79.899 Other long term (current) drug therapy; Z79.84 Long term (current) use of oral hypoglycemic drugs; Z79.891 Long term (current) use of opiate analgesic; Z88.8 Allergy status to other drugs, medicaments and biological substances
CPT/HCPCS: G0463

== ENCOUNTER → 2020-05-31 | Outpatient (CLI) | payer BC ==
--- NOTE | 2020-05-31 14:25 | PDOC ---
Progress Note - Pain Clinic Date of Service: DOS: DATE: 05/31/20 TIME: 14:19 Diagnosis: Dx: Lumbar radiculopathy with lumbar degenerative disc disease and lumbar herniated disc Cervical radiculopathy with cervical degenerative disc disease Myofascial pain History or Present Illness: HPI: 49-year-old female returns for follow-up status post medication management with Savella as well as methadone and Voltaren gel. Patient reports she is doing fairly well and has been on very stable regimen with the medications without any side effects has been off the Savella now as she was trying venlafaxine but has not been beneficial for her. Patient reports she is planning on restarting the Savella as we discussed on her last visit and we will give her the prescriptions for that as well. Patient reports still significant pain base the neck upper neck shoulders back upper back mid back low back bilateral upper extremities left greater than right and bilateral lower extremities hips knees as well as feet. Patient reports pain in the elbows as well as the wrists also. Patient reports it seems like her whole body is hurting all the time knees been more painful over the last month or so without any injury or increase or change of activity. Patient reports it wakes her from sleep several times at night and the pain does migrate into different areas where it is worse 1 day not the next. Patient rates her pain is a 10 on scale 10 is worse over the past week 9 on average 8 its least is a 9 today. Patient reports medication however does decrease the pain by about 60 to 70% and has no specific side effects with it. Physical Exam: VS: Blood pressure is 138/81 pulse 90 respirations 16 temperature 90.0 F weight is 206 pounds PE: PHYSICAL EXAMINATION: GENERAL: The patient is awake, alert, oriented, appropriate, very pleasant demeanor HEENT: Shows normocephalic, atraumatic. Extraocular movements are intact and symmetrical. Oral cavity: Mucous membranes moist and pink. Dentition is intact. NECK: Shows anterior throat supple without palpable lymphadenopathy noted. CHEST: Shows normal on inspection. Breath sounds are clear bilaterally, no rales or rhonchi. HEART: Shows S1, S2 clear. No murmurs auscultated. ABDOMEN: Soft, nontender, nondistended, obese. No palpable organomegaly is noted. BACK: Shows spine grossly in the midline. Normal-appearing cervical lordotic curvature. Cervical paraspinous muscles show symmetrical on inspection with palpation some mild tenderness diffusely throughout the upper middle lower decrease the paraspinous muscles 1 to the superior medial and lateral trapezius bilaterally without specific trigger points or radiation but diffusely tender throughout. No radiation is demonstrated. There is increased thoracic kypho sis, some flattening of the lumbar lordotic curvature. Lumbar paraspinous muscles show symmetrical on inspection, on palpation shows some moderate tenderness diffusely throughout the upper, middle and lower distribution of the paraspinous muscles, but without specific trigger points, without radiation of pain. The patient has good rotational motion of the lumbar spine, both later ally as well as extension and flexion without significant difficulty. No tenderness over the spinous processes, sacrum or sacroiliac regions. EXTREMITIES: Lower extremities show deep tendon reflexes 1+ in the patellar and tendo calcaneus tendons. Motor exam is 4 on a scale of 5 with right dorsiflexion, extension, quadriceps and hamstring flexion and 4/5 on the left. Peripheral pulses are 1+ posterior tibial. No peripheral edema is noted bilaterally. Lower extremities are warm and dry to touch, equal in color and appearance. Upper extremity show deep tendon reflexes at 2+ in the bicep and tricep tendons motor exam strong with buncher operator strength rated at 5 out of 5 as is biceps and triceps flexion bilaterally. Peripheral pulses are 2+ radial. SKIN: Shows warm and dry, good turgor. No edema. No sores, rashes or bruising throughout. Procedure: Procedure: Options were discussed with the patient. Patient chart reviews her current medication regimen updated current review of systems updated today as well. We will refill patient's medication she has been on very stable regimen has had appropriate K tracts reporting as well as appropriate urinalyses to date. We will have urinalysis done today as part of routine screening. We will have a refill of 2-month duration for methadone as well as restarting her Savella with a titration pack and then prescription for continuation after this, as she has done very well with this in the past. Patient given 2-month prescription with instructions side effects beware of each of the medications and will follow up in 2 months. Or sooner if necessary. Medication Injected: Med Injected: None Condition at Discharge: Condition at Discharge: Condition at discharge is stable. HUONG JOSEPH MD May 31, 2020 14:25
== END | disposition home or self-care (01) ==
LOC: PNCL 13:24
PROVIDERS: ATTEND Anesthesiology
DX: M51.16 Intervertebral disc disorders with radiculopathy, lumbar region (principal); M50.10 Cervical disc disorder with radiculopathy, unspecified cervical region; M79.18 Myalgia, other site; Z88.6 Allergy status to analgesic agent; Z79.899 Other long term (current) drug therapy; Z98.890 Other specified postprocedural states
CPT/HCPCS: 99212; G0463

== ENCOUNTER → 2020-07-12 | Outpatient (CLI) | payer BC ==
--- NOTE | 2020-07-12 15:22 | PDOC ---
Progress Note - Pain Clinic Date of Service: DOS: DATE: 07/12/20 TIME: 15:19 Diagnosis: Dx: Lumbar radiculopathy with lumbar degenerative disease lumbar herniated disc Cervical radiculopathy with cervical degenerative disease Myofascial pain History or Present Illness: HPI: 49-year-old female returns for follow-up status post medication managed with methadone and Savella. Patient reports she has had significant increase in pain over the last week to 2 weeks without any specific injury or accident that she is aware of or other inciting factor significant pain the low back rating the posterior gluteus posterior lateral thigh lateral anterior thigh into the left knee patient reports is worse with walking standing changing positions also worse at night is waking her up from sleep and bad when laying down. Patient reports that she has pain from her head to her feet and she cannot stand herself. Patient reports that the methadone is not relieving it completely she can tell that it is helping but only to a mild extent and the same with the Savella. Patient reports he cannot sleep at night pain is significant she is up for several hours every night and is flustered that the pain is not improving. Patient rates her pain a 10+ on a scale 10 is worse over the past week 10 on average 9 its least as a 10 today. Patient reports no specific side effects with her medication but again pain level much higher over the last week to 2 weeks. Physical Exam: VS: Blood pressure is 136/85 pulse 91 respirations 16 temperature 97.9 F weight is 208 pounds PE: PHYSICAL EXAMINATION: GENERAL: The patient is awake, alert, oriented, appropriate, very pleasant in demeanor. HEENT: Shows normocephalic, atraumatic. Extraocular movements are intact and symmetrical. Oral cavity: Mucous membranes moist and pink. Dentition is intact. NECK: Shows anterior throat supple without palpable lymphadenopathy noted. Swallow reflex symmetrical. CHEST: Shows normal on inspection. Breath sounds are clear bilaterally. HEART: Shows S1, S2 clear. No murmurs auscultated. ABDOMEN: Soft, nontender, nondistended, obese. No palpable organomegaly is noted. No rebound or guarding demonstrated. BACK: Shows spine grossly in the midline. Normal-appearing cervical lordotic curvature. There is slightly increased thoracic kyphosis, some minor flattening of the lumbar lordotic curvature. Lumbar paraspinous muscles show symmetrical on inspection, on palpation shows some moderate tenderness diffusely throughout the upper, middle and lower distribution of the paraspinous muscles, but without specific trigger points, without radiation of pain. The patient has good rotational motion of the lumbar spine, both laterally as well as extension and flexion without significant difficulty. 1+ EXTREMITIES: Lower extremities show deep tendon reflexes 1+ in the patellar and tendo calcaneus tendons. Motor exam is 4 on a scale of 5 with right dorsiflexion, extension, quadriceps and hamstring flexion and 4/5 on the left. Peripheral pulses are 1 posterior tibial. No peripheral edema is noted bilaterally. SKIN: Shows warm and dry, good turgor. No edema. No sores, rashes or bruising throughout. Procedure: Procedure: Options discussed with patient. Patient chart reviews her current medication has been updated current review of systems updated today as well. We will change methadone to 30 mg twice daily instead of 20 see if this may decrease the pain significantly over the next few weeks. Also will add Medrol Dosepak and Amitiza, if her insurance is able to cover this. Patient was given instructions well side effects beware of each of the medications and will follow up in approximately 2 weeks as scheduled. Medication Injected: Med Injected: None Condition at Discharge: Condition at Discharge: Condition at discharge is stable. HUONG JOSEPH MD Jul 12, 2020 15:22
== END | disposition home or self-care (01) ==
LOC: PNCL 14:07
PROVIDERS: ATTEND Anesthesiology
DX: M51.16 Intervertebral disc disorders with radiculopathy, lumbar region (principal); M50.10 Cervical disc disorder with radiculopathy, unspecified cervical region; M79.18 Myalgia, other site; Z79.84 Long term (current) use of oral hypoglycemic drugs; Z79.899 Other long term (current) drug therapy; Z88.6 Allergy status to analgesic agent
CPT/HCPCS: 99212; G0463

== ENCOUNTER → 2020-07-19 | Outpatient (CLI) | payer BC ==
--- NOTE | 2020-07-19 15:54 | KCIC ---
EXAMINATION: MRI LEFT KNEE WITHOUT IV CONTRAST CLINICAL HISTORY: Left knee pain x one month, crepitus. NKI. TECHNIQUE: Multiplanar multisequential images obtained through the knee without intravenous contrast. COMPARISON: None FINDINGS: MENISCI: Medial Meniscus: Non-displaced horizontal tear in the posterior horn and body extending into the intr a-articular surface with small parameniscal cyst. Lateral Meniscus: Intact. LIGAMENTS: ACL: Intact PCL: Intact MCL: Intact LCL Complex: Intact CARTILAGE: Medial Femoral Condyle: Small area(s) of full thickness cartilage loss and or fissuring with subchond ral marrow reactive/cystic changes, predominantly in the posterior condyle Medial Tibial Plateau: Small areas(s) of predominantly low grade (less than 50% thickness) cartilage loss and or fissuring with smaller area(s) of high grade (greater than 50% thickness) cartilage loss and or fissuring Lateral Femoral Condyle: Normal Lateral Tibial Plateau: Small area(s) of full thickness cartilage loss and or fissuring Patella: Small to moderate areas(s) of predominantly high grade (greater than 50% thickness) cartilag e loss and or fissuring with smaller area(s) of full thickness cartilage loss and or fissuring with s ubchondral marrow reactive/cystic changes, predominantly in the patellar apex Trochlea: Small area(s) of full thickness cartilage loss and or fissuring with subchondral marrow bob ctive/cystic changes in the medial trochlea TENDONS: Distal quadriceps and patellar tendons intact. Popliteus tendon intact. BONES AND MARROW: No evidence of acute fracture or suspicious marrow replacing process. MUSCLES: Muscle bulk and signal intensity within normal limits. JOINT FLUID AND SYNOVIUM: Trace joint effusion. No synovitis. Moderate Baugh's cyst. IMPRESSION: Mild tricompartmental full-thickness chondral wear as described with medial meniscus tear. Electronically signed by: Avtar Cervantes DO (07/19/2020 3:52 PM) [id number]
--- NOTE | 2020-07-19 16:15 | KCIC ---
MR LUMBAR SPINE WO [id number] Date: 07/19/2020 1:20 PM Indication: LEFT LEG RADICULOPATHY. Chronic LBP for yrs, epidurals yrs ago, no surgical hx. Left leg pain, especially hip and knee x one month. Comparison: CT 11/29/2017. MRI 01/07/2017. Technique: Multi-planar multi-weighted magnetic resonance imaging of the lumbar spine was performed w ithout intravenous contrast using the standard lumbar spine protocol. FINDINGS: Trace anterolisthesis at L5-S1, due to bilateral L5 pars defects. No acute fracture. Mild multilevel degenerative disc desiccation and disc height loss. T11 hemangioma. The conus terminates at a normal level. No abnormal signal is seen within the visualized distal spina l cord. No clumping of intrathecal nerve roots. No soft tissue abnormality in the visualized abdomen or pelvis. T12-L1: No disc bulge. No facet arthropathy. No significant spinal stenosis or neural foraminal narro wing. L1-L2: Disc bulge. Mild facet arthropathy. No significant spinal stenosis or neural foraminal narrowi ng. L2-L3: Disc bulge with annular tear. Mild facet arthropathy. No significant spinal stenosis. Mild rig ht neural foraminal narrowing. L3-L4: Disc bulge, asymmetric to the left. Mild right and moderate left facet arthropathy. No signifi cant spinal stenosis. Mild left lateral recess narrowing. Mild left neural foraminal narrowing. L4-L5: Disc bulge. Mild facet arthropathy. No significant spinal stenosis or neural foraminal narrowi ng. L5-S1: Disc bulge. Mild facet arthropathy. No significant spinal stenosis or neural foraminal narrowi ng. IMPRESSION: Mild lumbar spondylosis, not significantly progressed from the prior. Electronically signed by: Gabe Galdamez MD (07/19/2020 4:12 PM) [id number]
== END | disposition home or self-care (01) ==
LOC: KCIC MRI 13:05
PROVIDERS: ATTEND Anesthesiology
DX: M25.562 Pain in left knee (principal); S83.242A Other tear of medial meniscus, current injury, left knee, initial encounter; M47.26 Other spondylosis with radiculopathy, lumbar region; G89.29 Other chronic pain; Z79.84 Long term (current) use of oral hypoglycemic drugs; Z79.899 Other long term (current) drug therapy; Z88.6 Allergy status to analgesic agent; X58.XXXA Exposure to other specified factors, initial encounter; Y93.89 Activity, other specified; Y92.89 Other specified places as the place of occurrence of the external cause; Y99.8 Other external cause status
CPT/HCPCS: 72148; 73721

== ENCOUNTER → 2020-07-26 | Outpatient (CLI) | payer BC ==
[~2020-07-26] MED LIST changes: +BUPIVACAINE MPF 0.25% 10 ML VIAL. ONE; +IOHEXOL 180 MG/ML 10 ML VIAL. ONE; +methylPREDNISolone ACETATE 80 MG/ML VIAL. ONE
--- NOTE | 2020-07-26 14:27 | PDOC4 ---
PROCEDURE Procedure Patient is consented for left intra-articular knee joint injection with fluo roscopic guidance. Risks discussed included but not limited to bleeding infection possibility of intravascular injection sequelae spread local anesthetic numbness side effects steroid medication exposure fluoroscopy and portals regarding pain control. Patient understands wished to proceed. Under sterile prep and drape patient in supine position using C-arm fluoroscopic guidance patient's left knee was sterilely prepped and draped in usual fashion. Using C-arm fluoroscopy the medial aspect of the knee joint was identified and visualized and using 1% lidocaine 25-gauge needle of the area of the skin overlying the medial knee compartment was anesthetized. Using a 22-gauge quickie needle with stylette the joint was entered under direct visualization without difficulty. Stylet was removed at this time 1.5 cc of contrast was then injected with good spread within the knee joint itself without washout or uptake. At this time solution containing 3 cc of 0.25 bupivacaine and 80 mg Depo-Medrol, was then injected. Needle was withdrawn and sterile bandage applied. Patient tolerated procedure well and had no complications. HUONG JOSEPH MD Jul 26, 2020 14:27
--- NOTE | 2020-07-26 14:27 | PDOC ---
Progress Note - Pain Clinic Date of Service: DOS: DATE: 07/26/20 TIME: 14:21 Diagnosis: Dx: Lumbar radiculopathy lumbar degenerative disease lumbar herniated disc Cervical radiculopathy with cervical degenerative disc disease Myofascial pain Left knee joint pain with osteoarthritis and torn medial meniscus History or Present Illness: HPI: 49-year-old female returns for follow-up status post medication management related to a recently adjusted her methadone to 3 times twice daily instead of 2 twice daily patient reports that she is doing slightly better but the pain is still significant in the low back in her left knee we did do an MRI scan with her low back and her left knee and discussed those results with her today. Patient reports that her left knee is significantly painful with weightbearing standing specially climbing on stairs or curbs putting all her weight on her left leg mostly in the medial compartment. She reports is doing well with the medication as far as any side effects some constipation still but she is taking some [id number] laxatives for this which is helpful also. Patient reports no other side effects. Patient rates her pain reduction with the methadone the current level at about 60%. Physical Exam: VS: Blood pressure is 136/88 pulse 98 respirations 18 temperature 90.5 F height is 5 feet 4 inches weight is 205 pounds PE: PHYSICAL EXAMINATION: GENERAL: The patient is awake, alert, oriented, appropriate, very pleasant demeanor HEENT: Shows normocephalic, atraumatic. Extraocular movements are intact. Patient wearing eyeglasses. Oral cavity: Mucous membranes moist and pink. Dentition is intact. NECK: Shows anterior throat supple without palpable lymphadenopathy noted. Swallow reflex symmetrical. CHEST: Shows normal on inspection. Breath sounds are clear bilaterally. HEART: Shows S1, S2 clear. No murmurs auscultated. ABDOMEN: Soft, nontender, nondistended. No palpable organomegaly is noted. No rebound or guarding demonstrated. BACK: Shows spine grossly in the midline. Normal-appearing cervical lordotic curvature. There is slightly increased thoracic kyphosis, some minor flattening of the lumbar lordotic curvature. Lumbar paraspinous muscles show symmetrical on inspection, on palpation shows some moderate tenderness diffusely throughout the upper, middle and lower distribution of the paraspinous muscles, but without specific trigger points, without radiation of pain. The patient has good rotational motion of the lumbar spine, both laterally as well as extension and flexion without significant difficulty. EXTREMITIES: Lower extremities show deep tendon reflexes 1+ in the patellar and tendo calcaneus tendons. Motor exam is 4 on a scale of 5 with right dorsiflexion, extension, quadriceps and hamstring flexion and 4/5 on the left. Peripheral pulses are 1+ posterior tibial. No peripheral edema is noted bilaterally. Lower extremities are warm and dry to touch, equal in color and appearance. Patient's knees show symmetrical on inspection with palpation shows moderate tenderness in the left knee with medial collateral ligament palpation but not laterally. Patient shows good range of motion passively with good hinge motion without ratcheting without crepitus. No significant displacement of the patella medial or lateral with palpation. SKIN: Shows warm and dry, good turgor. No edema. No sores, rashes or bruising throughout. Procedure: Procedure: Options were discussed with patient. Patient chart was reviewed as her current medication regimen updated current review of systems updated today as well. We will proceed with a left intra-articular knee joint injection today with fluoroscopic guidance. Risk were discussed including but limited bleeding infection possibility of intravascular injection sequelae spread local anesthetic numbness side effects steroid medication and exposure fluoroscopy as well as poor results regarding pain control. Patient understands wished to proceed. Patient will return to the clinic in approximately 2 weeks for follow- up, was counseled as to return appointment activity level and side effects to be aware of. Medication Injected: Med Injected: Under sterile prep and drape patient in supine position using C-arm fluoroscopic guidance patient's left knee was sterilely prepped and draped in usual fashion. Using C-arm fluoroscopy the medial aspect of the knee joint was identified and visualized and using 1% lidocaine 25-gauge needle of the area of the skin overlying the medial knee compartment was anesthetized. Using a 22-gauge quickie needle with stylette the joint was entered under direct visualization without difficulty. Stylet was removed at this time 1.5 cc of contrast was then injected with good spread within the knee joint itself without washout or uptake. At this time solution containing 3 cc of 0.25 bupivacaine and 80 mg Depo-Medrol, was then injected. Needle was withdrawn and sterile bandage applied. Patient tolerated procedure well and had no complications. Condition at Discharge: Condition at Discharge: Condition at discharge is stable, patient already procedure well and had no complications. HUONG JOSEPH MD Jul 26, 2020 14:27
== END | disposition home or self-care (01) ==
LOC: PNCL 13:39
PROVIDERS: ATTEND Anesthesiology
DX: M17.12 Unilateral primary osteoarthritis, left knee (principal); S83.242A Other tear of medial meniscus, current injury, left knee, initial encounter; M51.16 Intervertebral disc disorders with radiculopathy, lumbar region; M50.10 Cervical disc disorder with radiculopathy, unspecified cervical region; M79.18 Myalgia, other site; M25.562 Pain in left knee; Z79.899 Other long term (current) drug therapy; Z88.6 Allergy status to analgesic agent; X58.XXXA Exposure to other specified factors, initial encounter; Y93.89 Activity, other specified; Y92.89 Other specified places as the place of occurrence of the external cause; Y99.8 Other external cause status
CPT/HCPCS: 20610; 77002; J1040; J3490; Q9965

== ENCOUNTER → 2020-09-20 | Outpatient (CLI) | payer BC ==
[~2020-09-20] MED LIST changes: -BUPIVACAINE MPF 0.25% 10 ML VIAL. ONE; -IOHEXOL 180 MG/ML 10 ML VIAL. ONE; +METH-572 PO; -METH10TA2 PO; +RIZA5TAB PO; -RIZA5TAB7 PO; -methylPREDNISolone ACETATE 80 MG/ML VIAL. ONE
--- NOTE | 2020-09-20 13:54 | PDOC ---
Progress Note - Pain Clinic Date of Service: DOS: DATE: 09/20/20 TIME: 13:50 Diagnosis: Dx: Lumbar radiculopathy with lumbar herniated disc and lumbar degenerative disease Cervical radiculopathy with cervical degenerative disc disease Myofascial pain Left knee joint pain History or Present Illness: HPI: 49-year-old female returns for follow-up status post medication management with both methadone and oxycodone Savella and Voltaren gel. Patient reports that still having significant pain in the low back she does have a herniated disc in the lumbar distribution but is been unable to complete physical therapy secondary to the pain involved and her insurance provider is required requesting more physical therapy at this time which she has not performed recently. Patient reports the pain is significant in the low back bilateral hips and lower extremities posterior thighs and posterior calves also the heels shoulders back upper back mid back and has been waking her from sleep at least every 1 hour or so patient reports her pain is a 10 on scale 10 is worse over the past week 10 on average 9 its least is a 10 today patient report is unbearable lower back is keeping her up day and night most nights she cannot sleep secondary to the pain causing her to toss and turn constantly and causing a lot of depression as well. Patient reports the Voltaren gel is helpful putting on her back as well as her bilateral hips but only temporarily. Patient reports no side effects with methadone with oxycodone except some mild constipation which is controlled with increased fluid hydration. Patient reports that she was on Trulicity for short period of time as her insurance would not cover it after some samples she received from her primary physician and she was able to lose about 10 pounds while she was on that. Physical Exam: VS: Blood pressure is 140/89 pulse 88 respirations 18 temperature is 98.3 F weight 201 pounds PE: PHYSICAL EXAMINATION: GENERAL: The patient is awake, alert, oriented, appropriate, very pleasant in demeanor HEENT: Shows normocephalic, atraumatic. Extraocular movements are intact and symmetrical. Oral cavity: Mucous membranes moist and pink. Dentition is intact. NECK: Shows anterior throat supple without palpable lymphadenopathy noted. CHEST: Shows normal on inspection. Breath sounds are clear bilaterally, no rales or rhonchi. HEART: Shows S1, S2 clear. No murmurs auscultated. ABDOMEN: Soft, nontender, nondistended. No palpable organomegaly is noted. No rebound or guarding demonstrated. BACK: Shows spine grossly in the midline. Normal-appearing cervical lordotic curvature. There is slightly increased thoracic kyphosis, some minor flattening of the lumbar lordotic curvature. Lumbar paraspinous muscles show symmetrical on inspection, on palpation shows some moderate tenderness diffusely throughout the upper, middle and lower distribution of the paraspinous muscles, but without specific trigger points, without radiation of pain. The patient has good rotational motion of the lumbar spine, both laterally as well as extension and flexion with mild tenderness with extension right and left lateral rotation as well as forward flexion. EXTREMITIES: Lower extremities show deep tendon reflexes 1+ in the patellar and tendo calcaneus tendons. Motor exam is 4 on a scale of 5 with right dorsiflexion, extension, quadriceps and hamstring flexion and 4/5 on the left. Peripheral pulses are 1+ posterior tibial. No peripheral edema is noted bilaterally. Lower extremities are warm and dry. SKIN: Shows warm and dry, good turgor. No edema. No sores, rashes or bruising throughout. Procedure: Procedure: Options were discussed with the patient. Patient's old chart reviews her current medication regimen updated current review of systems updated today as well. We will refill patient's medication methadone, oxycodone, Voltaren gel, Savella, add diclofenac 75 mg twice daily. Patient was given instructions well side effects aware of each of the medications. Patient has had appropriate K tracks report as well as appropriate urinalyses to date and we will make this for 2-month prescription refill. Patient was given instructions well side effects aware of each of the medications follow-up in approxi-2 months or sooner as necessary. Medication Injected: Med Injected: None Condition at Discharge: Condition at Discharge: Condition at discharge is stable. HUONG JOSEPH MD Sep 20, 2020 13:54
== END | disposition home or self-care (01) ==
LOC: PNCL 13:11
PROVIDERS: ATTEND Anesthesiology
DX: M51.16 Intervertebral disc disorders with radiculopathy, lumbar region (principal); M50.10 Cervical disc disorder with radiculopathy, unspecified cervical region; M79.18 Myalgia, other site; M25.562 Pain in left knee; Z79.84 Long term (current) use of oral hypoglycemic drugs; Z88.6 Allergy status to analgesic agent
CPT/HCPCS: 99212; G0463

== ENCOUNTER → 2020-11-15 | Outpatient (CLI) | payer BC ==
[~2020-11-15] MED LIST changes: +OXYC1TAB22 PO
--- NOTE | 2020-11-15 15:43 | PDOC ---
Progress Note - Pain Clinic Date of Service: DOS: DATE: 11/15/20 TIME: 15:38 Diagnosis: Dx: Lumbar radiculopathy with lumbar herniated disc and lumbar degenerative disc disease Cervical radiculopathy with cervical degenerative disease Myofascial pain Left knee joint pain History or Present Illness: HPI: 49-year-old female returns for follow-up status post medication management with methadone and oxycodone as well as Savella and Voltaren gel. Patient reports she is fairly stable still has significant pain reports that the pain is constant 24 hours a day and never goes away entire body aches the point where she does not want to participate in any recreational activities or go any place this is too painful for her to get dressed and get out of the house. Patient reports he did get a new air mattress sleep number bed which has been helping her sleep at night and is pleased with this but is still having significant pain during the day however at night she is sleeping better as she is not awakening from sleep secondary to the pain. She reports her pain is a 10-10+ at all times worst least and average over the last week is a 10 today. Patient reports no specific side effects with the medications has had appropriate K tracks report as well as appropriate urinalyses to date as well. Physical Exam: VS: Blood pressure is 130/90 pulse 94 respirations 18 temperature 97.4 F weight is 200 pounds PE: PHYSICAL EXAMINATION: GENERAL: The patient is awake, alert, oriented, appropriate, very pleasant in demeanor HEENT: Shows normocephalic, atraumatic. Extraocular movements are intact and symmetrical. Oral cavity: Mucous membranes moist and pink. Dentition is intact. NECK: Shows anterior throat supple without palpable lymphadenopathy noted. Swallow reflex symmetrical. CHEST: Shows normal on inspection. Breath sounds are clear bilaterally, no rales rhonchi or wheezes auscultated. HEART: Shows S1, S2 clear. No murmurs auscultated. ABDOMEN: Soft, nontender, nondistended, obese. No palpable organomegaly is noted. BACK: Shows spine grossly in the midline. Normal-appearing cervical lordotic curvature. There is increased thoracic kyphosis, some flattening of the lumbar lordotic curvature. Lumbar paraspinous muscles show symmetrical on inspection, on palpation shows some moderate tenderness diffusely throughout the upper, middle and lower distribution of the paraspinous muscles, but without specific trigger points, without radiation of pain. The patient has good rotational motion of the lumbar spine, both laterally as well as extension and flexion without significant difficulty. EXTREMITIES: Lower extremities show deep tendon reflexes 1+ in the patellar and tendo calcaneus tendons. Motor exam is 4 on a scale of 5 with right dorsiflexio n, extension, quadriceps and hamstring flexion and 4/5 on the left. Peripheral pulses are 1+ posterior tibial. No peripheral edema is noted bilaterally. Lower extremities are warm and dry to touch, equal in color and appearance. Patient has generalized pain with muscular palpation throughout the cervical paraspinous muscular thoracic paraspinous muscular trapezius musculature deltoid biceps triceps as well as the forearms also pain over the anterior hips superior aspect of the quadriceps as well as gluteus right greater than left distal quadricep above the knee with moderate pain with palpation as well and diffuse pain in the calves as well as in the ankles bilaterally. No specific radiation is demonstrated for any of the palpable areas of tenderness. SKIN: Shows warm and dry, good turgor. No edema. No sores, rashes or bruising throughout. Procedure: Procedure: Options were discussed with the patient. Patient's old chart was reviewed as her current medication regimen updated current review of systems updated today as well. We will refill patient's medication oxycodone and methadone via electronic prescription. Patient has had appropriate K tracks reporting as well as appropriate urinalyses to date we will make this a 1 month refill. Patient was encouraged to maintain stretching strengthening exercises as well as heat massage therapies throughout the day and to force herself to participate in activities outside of the home even though it is uncomfortable for her to pre pare and to get dressed and to participate in these. Patient will maintain with psychological counseling schedule as well. Medication Injected: Med Injected: None Condition at Discharge: Condition at Discharge: Condition at discharge is stable. HUONG JOSEPH MD Nov 15, 2020 15:43
== END | disposition home or self-care (01) ==
LOC: PNCL 13:20
PROVIDERS: ATTEND Anesthesiology
DX: M51.16 Intervertebral disc disorders with radiculopathy, lumbar region (principal); M50.10 Cervical disc disorder with radiculopathy, unspecified cervical region; M79.18 Myalgia, other site; M25.562 Pain in left knee; Z79.84 Long term (current) use of oral hypoglycemic drugs; Z79.899 Other long term (current) drug therapy; Z88.6 Allergy status to analgesic agent
CPT/HCPCS: 99212; G0463

== ENCOUNTER → 2020-12-17 | Outpatient (CLI) | payer BC ==
--- NOTE | 2020-12-17 13:13 | PDOC ---
Progress Note - Pain Clinic Date of Service: DOS: DATE: 12/17/20 TIME: 13:11 Diagnosis: Dx: Lumbar radiculopathy with lumbar degenerative disease lumbar herniated disc Cervical radiculopathy with cervical degenerative disc disease Myofascial pain Left knee joint pain with osteoarthritis History or Present Illness: HPI: Telemedicine visit today with patient's identity verified with full date of bir th as well as full name, total time spent: 12 minutes 50-year-old female with telemedicine visit today regarding medications and medication refills we discussed changing her oxycodone on the last visit to better control her pain she reports she is still at about a 50% level where is normally about a 60-70 or better with the medications she still taking methadone with oxycodone she been taking 2 tablets at a time of 5 mg each. Patient reports she is doing fairly well with this and her pain is much better co ntrolled but she is already on medication so she is not doing it daily. Patient reports no significant side effects no new constipation itching nausea dysphoria etc. Patient reports still significant pain in the low back hips and legs as well as her back shoulders upper extremities as well as joints knees shoulders elbows and ankles and feet. We will electronically prescribe patient's medications methadone and oxycodone as she has had appropriate K tracks reporting well as appropriate urinalyses to date. Patient is scheduled to follow-up in person approximately 4 weeks and we will have her keep that appointment as scheduled. HUONG JOSEPH MD Dec 17, 2020 13:13
== END | disposition home or self-care (01) ==
LOC: PNCL 11:21
PROVIDERS: ATTEND Anesthesiology
DX: M51.16 Intervertebral disc disorders with radiculopathy, lumbar region (principal); M50.10 Cervical disc disorder with radiculopathy, unspecified cervical region; M79.18 Myalgia, other site; M17.12 Unilateral primary osteoarthritis, left knee; Z79.84 Long term (current) use of oral hypoglycemic drugs; Z79.899 Other long term (current) drug therapy; Z88.6 Allergy status to analgesic agent
CPT/HCPCS: G0463

== ENCOUNTER → 2021-02-13 | Outpatient (CLI) | payer BC ==
--- NOTE | 2021-02-13 16:55 | PDOC ---
Progress Note - Pain Clinic Date of Service: DOS: DATE: 02/13/21 TIME: 16:53 Diagnosis: Dx: Lumbar radiculopathy with lumbar herniated disc and lumbar degenerative disc disease Cervical radiculopathy with cervical degenerative disc disease Myofascial pain History or Present Illness: HPI: Telemedicine visit today with patient's identity verified with full date of as well as full name, total time spent 12 minutes 50-year-old female via telemedicine conference today requesting a refill of methadone and oxycodone as well as Savella. Patient reports he is doing very well with this and has been on very stable regimen however reports she has some significant pain in the abdomen few days ago and presented to the emergency room secondary to this and was treated and released and recommended to gastro enterology follow-up. Patient is currently contacting her primary care physician to get a referral for gastroenterology. Patient has had appropriate K tracks report as well as appropriate urinalyses to date reports that the pain is decreased with the medication regiment by about 60%. Patient reports no significant side effects except for constipation he is maintaining hydration levels he has been taking [id number] laxatives reports none of these worked very well for her. Patient does report that Amitiza was helpful but she is unable to get that covered with her insurance program. We will electron ically prescribe patient's oxycodone as well as methadone with instructions side effects aware discussed each of the medications. Patient will follow up in approximately 4 weeks as scheduled. Physical Exam: PE: HUONG JOSEPH MD Feb 13, 2021 16:55
== END | disposition home or self-care (01) ==
LOC: PNCL 13:46
PROVIDERS: ATTEND Anesthesiology
DX: M51.16 Intervertebral disc disorders with radiculopathy, lumbar region (principal); M50.10 Cervical disc disorder with radiculopathy, unspecified cervical region; M79.18 Myalgia, other site; Z79.899 Other long term (current) drug therapy; Z88.6 Allergy status to analgesic agent
CPT/HCPCS: 99212; G0463

== ENCOUNTER → 2021-03-07 | Outpatient (CLI) | payer BC ==
[~2021-03-07] MED LIST changes: +HYDR4TAB45 PO
--- NOTE | 2021-03-07 14:12 | PDOC ---
Progress Note - Pain Clinic Date of Service: DOS: DATE: 03/07/21 TIME: 14:07 Diagnosis: Dx: Lumbar D colopathy with lumbar degenerative disease lumbar herniated disc Cervical radiculopathy with cervical degenerative disease Myofascial pain Left knee joint pain History or Present Illness: HPI: 50-year-old female returns for follow-up status post medication management with methadone and oxycodone also patient taking Savella 50 mg twice daily patient reports that she is still having significant pain is increased in severity in the mid upper back especially worse on the right side than the left but present bilaterally patient reports is worse with reaching posteriorly has had to change to a different procedure that is front fastening and she cannot reach around the back anymore comfortably patient reports is getting worse in the right shoulder unbearable at times with movement in any direction patient reports some significant increased pain about 3 days ago in the low back as well bilaterally more to the lateral aspect of the low back then centrally but very tender very painful specially with going from sitting to standing positions and is very painful while sitting for more than 5 to 10 minutes patient reports this is draining all of her energy she feels fatigued at all times and have difficulty sleeping is only sleeping every 5-6 hours without disturbance from the pain. Patient reports no side effects with medications currently. Physical Exam: VS: Blood pressure is 115/48 pulse 48 respirations 18 temperature 98.1 F weight is 197 pounds PE: PHYSICAL EXAMINATION: GENERAL: The patient is awake, alert, oriented, appropriate, very pleasant in demeanor HEENT: Shows normocephalic, atraumatic. Extraocular movements are intact and symmetrical. Patient wearing eyeglasses. Oral cavity: Mucous membranes moist and pink. Dentition is intact. NECK: Shows anterior throat supple without palpable lymphadenopathy noted. Swallow reflex symmetrical. CHEST: Shows normal on inspection. Breath sounds are clear bilaterally. HEART: Shows S1, S2 clear. No murmurs auscultated. ABDOMEN: Soft, nontender, nondistended. No palpable organomegaly is noted. No rebound or guarding demonstrated. BACK: Shows spine grossly in the midline. Normal-appearing cervical lordotic curvature. There is slightly increased thoracic kyphosis, some minor flattening of the lumbar lordotic curvature. Lumbar paraspinous muscles show symmetrical on inspection, on palpation shows some moderate tenderness diffusely throughout the upper, middle and lower distribution of the paraspinous muscles, but tender diffusely throughout the upper middle lower distribution the paraspinous musculature in the thoracic distribution as well as the lower cervical distribution and the entire upper and lower middle distribution of the lumbar paraspinous muscles also lateral in the lumbar distribution lateral flank mu scles very tender but without specific trigger points as well. The patient has good rotational motion of the lumbar spine, both laterally as well as extension and flexion without significant difficulty. No tenderness over the spinous processes, sacrum or sacroiliac regions. EXTREMITIES: Lower extremities show deep tendon reflexes 1 to in the patellar and tendo calcaneus tendons. Motor exam is 4 on a scale of 5 with right dorsiflexion, extension, quadriceps and hamstring flexion and 4/5 on the left. Peripheral pulses are 1+ posterior tibial. No peripheral edema is noted bilaterally. Lower extremities are warm and dr. Upper extremity show deep tendon reflexes 2+ in the bicep tricep tendons, motor exam is strong with unhairing inspector strength rated 5 out of 5 as is bicep and tricep flexion. SKIN: Shows warm and dry, good turgor. No edema. No sores, rashes or bruising throughout. Procedure: Procedure: Options were discussed with the patient. Patient chart was reviewed as her current medication regimen updated current review of systems updated today as well. We will change patient's oxycodone to hydromorphone at 4 mg patient instructions well side effects aware with his as well as methadone which will be refilled electronically prescribed for both of these as well. Patient also will have a refill of diclofenac as well as a 5-day supply of Toradol as she is in very well with this after IV injection about 2 months ago while hospitalized for her right shoulder pain. Patient given instructions well side effects aware of all the medications and will follow up in approximately 30 days as scheduled. Medication Injected: Med Injected: None Condition at Discharge: Condition at Discharge: Condition at discharge is stable. HUONG JOSEPH MD Mar 07, 2021 14:12
== END | disposition home or self-care (01) ==
LOC: PNCL 13:04
PROVIDERS: ATTEND Anesthesiology
DX: M50.10 Cervical disc disorder with radiculopathy, unspecified cervical region (principal); M51.16 Intervertebral disc disorders with radiculopathy, lumbar region; M79.18 Myalgia, other site; M25.562 Pain in left knee; Z79.899 Other long term (current) drug therapy; Z88.6 Allergy status to analgesic agent
CPT/HCPCS: 99212; G0463

== ENCOUNTER → 2021-03-18 | Outpatient (CLI) | payer BC ==
--- NOTE | 2021-03-18 16:09 | NUR ---
Pt called clinic today to inform Dr. Francisco that the med change he made on 03/07/21 has not been effective. Pain level has been 12/07. Pain is worse. States no side effects. Pt. prefers the pain relief she was receiving from the oxycodone she had been on over this last change. K tracs reviewed. Dr. Francisco spoke with pt. prior to E-scribe. Merritt Srivastava RN
--- NOTE | 2021-03-18 16:12 | PDOC ---
Progress Note - Pain Clinic Date of Service: DOS: DATE: 03/18/21 TIME: 16:11 Diagnosis: Dx: Lumbar radiculopathy with lumbar degenerative disease and lumbar herniated disc Cervical radiculopathy with cervical degenerative disc disease Myofascial pain Left knee joint pain with osteoarthritis History or Present Illness: HPI: 50-year-old female via telemedicine visit today with identity verified with full date of as well as full name, total time spent 12 minutes 50-year-old female calling for report on recent medication we had changed her oxycodone to hydromorphone and suspicion that she was developing some physiologic tolerance however this was on the ninth of this month and over the past week and a half the pain has been much increased without significant reduction with the hydromorphone. Patient continues to take the methadone but hydromorphone is not decreasing her breakthrough pain whatsoever. Patient reports she is anxious significantly increased pain base of neck shoulders upper back mid back low back. We discussed this with some detail today and will change back to oxycodone patient was instructed to discard the remaining that she has in her possession and to return it to the pharmacy. Patient to follow- up in approximate 4 weeks as scheduled. Physical Exam: PE: HUONG JOSEPH MD Mar 18, 2021 16:12
== END | disposition home or self-care (01) ==
LOC: PNCL 13:02
PROVIDERS: ATTEND Anesthesiology
DX: M51.16 Intervertebral disc disorders with radiculopathy, lumbar region (principal); M50.10 Cervical disc disorder with radiculopathy, unspecified cervical region; M79.18 Myalgia, other site; M17.12 Unilateral primary osteoarthritis, left knee; Z79.84 Long term (current) use of oral hypoglycemic drugs; Z79.899 Other long term (current) drug therapy; Z88.6 Allergy status to analgesic agent
CPT/HCPCS: 99212; G0463

== ENCOUNTER → 2021-04-17 | Outpatient (CLI) | payer BC ==
--- NOTE | 2021-04-17 13:48 | NUR ---
Patient called states she needs a medication refill. Verified name , pharmacy ,allergies, next appointment. patient denies any new medical problems or constipation. patient rates her pain at a 9.Ktracts is correct. call transferred to Dr Francisco.
--- NOTE | 2021-04-17 14:02 | PDOC ---
Progress Note - Pain Clinic Date of Service: DOS: DATE: 04/17/21 TIME: 14:00 Diagnosis: Dx: Lumbar radiculopathy with lumbar degenerative disease and lumbar herniated disc Cervical radiculopathy with cervical degenerative disc disease Myofascial pain Left knee joint pain with osteoarthritis Right shoulder joint pain with osteoarthritis History or Present Illness: HPI: Telemedicine visit today with patient's identity verified with full name as well as full date of , total time spent 12 minutes 50-year-old female via telemedicine visit today with request for refill of methadone patient had previously been tried with hydromorphone for breakthrough pain however was not having any effect in decreasing the pain with changes back to oxycodone and this was refilled March 18, 2021. Patient reports is doing much better with this regimen with methadone with the oxycodone for breakthrough without any side effects. Patient reports still significant pain in the low back base the neck and shoulders left hip and knee as well as the right shoulder which is her main complaint we discussed potential x-rays and she would like to wait till her next visit to consider this further and is doing stretching and strengthening exercises with the right shoulder as well as range of motion exercises which she feels are somewhat helpful. Patient reports again no side effects with medication and she has had appropriate K tracks report as well as appropriate urinalyses to date reports overall about a 65% improvement with the medications alone. We will refill patient's medications for 30-day. Patient will follow-up in approximate 30 days as scheduled. HUONG JOSEPH MD Apr 17, 2021 14:02
== END | disposition home or self-care (01) ==
LOC: PNCL 13:41
PROVIDERS: ATTEND Anesthesiology
DX: M51.16 Intervertebral disc disorders with radiculopathy, lumbar region (principal); M50.10 Cervical disc disorder with radiculopathy, unspecified cervical region; M79.18 Myalgia, other site; M17.12 Unilateral primary osteoarthritis, left knee; M19.012 Primary osteoarthritis, left shoulder; Z79.4 Long term (current) use of insulin; Z79.899 Other long term (current) drug therapy; Z98.890 Other specified postprocedural states; Z88.8 Allergy status to other drugs, medicaments and biological substances
CPT/HCPCS: 99212; G0463

== ENCOUNTER → 2021-05-02 | Outpatient (CLI) | payer BC ==
[~2021-05-02] MED LIST changes: +BUPIVACAINE MPF 0.25% 10 ML VIAL. ONE; +IOHEXOL 180 MG/ML 10 ML VIAL. ONE; +methylPREDNISolone ACETATE 80 MG/ML VIAL. ONE
--- NOTE | 2021-05-02 13:05 | PDOC ---
Progress Note - Pain Clinic Date of Service: DOS: DATE: 05/02/21 TIME: 13:03 Diagnosis: Dx: Progress Note - Pain Clinic Date of Service: DOS: DATE: 05/02/21 TIME: 12:45 Diagnosis: Dx: Right shoulder joint pain with osteoarthritis Left knee joint pain with osteoarthritis Myofascial pain Lumbar radiculopathy with lumbar degenerative disease and lumbar herniated disc Cervical radiculopathy with cervical degenerative disc disease History or Present Illness: HPI: 50-year-old female returns for follow-up status post medication management with methadone and oxycodone. Patient reports he is doing fairly well with this with about a 50 to 60% improvement with the medications and without any significant side effects. Patient reports her chief complaint today however is right shoulder pain which been getting much worse over the past month or so pain around the collarbone in the right shoulder anteriorly posteriorly laterally superiorly reports it never stops actually sleep in one position in the neck causes pain in the back and the lower body patient reports is a 10 on scale 10 is worst 10 on average at night to [place] is a 9 today. Patient reports no injury to the shoulder but significant pain with rotation of motion as well as weightbearing lifting repetitive motions with the right arm and cannot lift her arm greater than approximately 90 degrees to the side with abduction and cannot reach above her head at all and she finds herself using her left arm more and is causing some significant soreness in the left arm as she is compensating for the right arm. Patient reports also pain in the back and low back into the lower extremities as well but fairly well managed with the medication regimen of the methadone and oxycodone. Patient also using Voltaren gel on the shoulder as well as the base the neck and her bilateral knees. Patient has had appropriate K tracks report as well as appropriate urinalyses to date. Physical Exam: VS: Blood pressure is 126/78 pulse 80 respirations 20 temperature is 98.2 F weight is 200 pounds PE: PHYSICAL EXAMINATION: GENERAL: The patient is awake, alert, oriented, appropriate, very pleasant in demeanor HEENT: Shows normocephalic, atraumatic. Extraocular movements are intact and symmetrical. Patient wearing eyeglasses. Oral cavity: Mucous membranes moist and pink. Dentition is intact. NECK: Shows anterior throat supple without palpable lymphadenopathy noted. Swallow reflex symmetrical. CHEST: Shows normal on inspection. Breath sounds are clear bilaterally, distant but no rales or rhonchi. HEART: Shows S1, S2 clear. No murmurs auscultated. ABDOMEN: Soft, nontender, nondistended. No palpable organomegaly is noted. BACK: Shows spine grossly in the midline. Normal-appearing cervical lordotic curvature. Cervical paraspinous muscles show symmetrical with inspection of palpation some very firm tender musculature in the middle and inferior aspect the cervical paraspinous muscle are also the superior medial trapezius bilaterally. There is moderately increased thoracic kyphosis, some flattening of the lumbar lordotic curvature. Lumbar paraspinous muscles show symmetrical on inspection, on palpation shows some moderate tenderness diffusely throughout the upper, middle and lower distribution of the paraspinous muscles, but without specific trigger points, without radiation of pain. The patient has good rotational motion of the lumbar spine, both laterally as well as extension and flexion without significant difficulty. No tenderness over the spinous processes, sacrum or sacroiliac regions. EXTREMITIES: Lower extremities show deep tendon reflexes 1+ in the patellar and tendo calcaneus tendons. Motor exam is 4 on a scale of 5 with right dorsiflexion, extension, quadriceps and hamstring flexion and 4/5 on the left. Peripheral pulses are 1+ posterior tibial. No peripheral edema is noted bilaterally. Lower extremities are warm and dry to touch, equal in color and appearance. Upper extremity show deep tendon reflexes 2+ in the bicep tricep tendons motor exam strong with intervention nurse strength rated 5 out of 5 bicep tricep flexion 4-5 on the right and 5 out of 5 on the left. Patient's right shoulder shows significant tenderness with palpation of the acromioclavicular joint as well as the anterior aspect of the glenohumeral joint some posteriorly as well with moderate palpation patient shows limited rotation of motion in abduction at approximately 75 to 80 degrees abduction with significant pain in the lateral deltoid region as well as the superior aspect of the shoulder and acromioclavicular region. Left side shows full rotation motion without difficulty. SKIN: Shows warm and dry, good turgor. No edema. No sores, rashes or bruising throughout. Procedure: Procedure: Options were discussed with the patient. Patient's old chart was viewed as her current medication regimen updated current review of systems updated today as well. We will proceed with a right intra-articular shoulder joint injection today with fluoroscopic guidance. Risks were discussed including but not limited to bleeding infection possibility of intravascular injection and sequelae, spread local acetic numbness, side effects of steroid medication, exposure fluoroscopy, and poor results regarding pain control. Patient understands wishes to proceed. We will refill patient's methadone as well as oxycodone which will be electronically prescribed for 30-day prescription. Again, patient has had appropriate K tracks reporting as well as appropriate urinalyses to date. Patient to follow-up in approximately 30 days as scheduled. Medication Injected: Med Injected: Patient supine position under sterile prep and drape using C-arm fluoroscopic guidance patient's right shoulder was visualized and using 25-gauge needle 1% lidocaine was used to topically anesthetized area over the glenohumeral joint on the right. Using a 22-gauge Quincke needle with stylette the joint was entered under direct fluoroscopic visualization without difficulty stylet was removed at this time 2 cc of contrast was injected with good intra-articular spread in the shoulder joint without uptake. At this time 3 cc of 0.25% bupivacaine and 80 mg Depo-Medrol was then injected into the joint. Needle was removed and sterile bandage was applied. Patient tolerated the procedure well and had no complications. Condition at Discharge: Condition at Discharge: Condition at discharge stable, patient tolerated the procedure well and had no complications. HUONG JOSEPH MD May 02, 2021 12:53 Signed By: HUONG JOSEPH MD <<Signature on File>> Signed Date/Time: 05/02/21 1253 Physical Exam: PE: HUONG JOSEPH MD May 02, 2021 13:05
--- NOTE | 2021-05-02 13:11 | PDOC4 ---
Procedure Note: ICD 10 Code: ICD 10 Code: M2 5.511 M1 9.011 Procedure Note: Patient was consented for right intra-articular shoulder joint injection today with fluoroscopic guidance. Risks were discussed including but not limited to bleeding infection possibility of intravascular injection sequelae spread local anesthetic numbness, exposure to fluoroscopy, and side effects of steroid medication, and poor results regarding pain control. Patient understands wishes to proceed. Patient supine position under sterile prep and drape using C-arm fluoroscopic guidance patient's right shoulder was visualized and using 25-gauge needle 1% lidocaine was used to topically anesthetized area over the glenohumeral joint on the right. Using a 22-gauge Quincke needle with stylette the joint was entered under direct fluoroscopic visualization without difficulty stylet was removed at this time 2 cc of contrast was injected with good intra-articular spread in the shoulder joint without uptake. At this time 3 cc of 0.25% bupivacaine and 80 mg Depo-Medrol was then injected into the joint. Needle was removed and sterile bandage was applied. Patient tolerated the procedure well and had no complications. HUONG JOSEPH MD May 02, 2021 13:11
== END | disposition home or self-care (01) ==
LOC: PNCL 11:14
PROVIDERS: ATTEND Anesthesiology
DX: M19.011 Primary osteoarthritis, right shoulder (principal); M17.12 Unilateral primary osteoarthritis, left knee; M79.18 Myalgia, other site; M51.16 Intervertebral disc disorders with radiculopathy, lumbar region; M50.10 Cervical disc disorder with radiculopathy, unspecified cervical region; Z79.899 Other long term (current) drug therapy; Z88.6 Allergy status to analgesic agent
CPT/HCPCS: 20610; 77002; J1040; J3490; Q9965

== ENCOUNTER → 2021-05-29 | Outpatient (CLI) | payer BC ==
[~2021-05-29] MED LIST changes: -BUPIVACAINE MPF 0.25% 10 ML VIAL. ONE; -IOHEXOL 180 MG/ML 10 ML VIAL. ONE; -methylPREDNISolone ACETATE 80 MG/ML VIAL. ONE
--- NOTE | 2021-05-29 16:52 | PDOC ---
Progress Note - Pain Clinic Date of Service: DOS: DATE: 05/29/21 TIME: 16:49 Diagnosis: Dx: Lumbar radiculopathy with lumbar degenerative disease lumbar herniated disc Cervical radiculopathy with cervical degenerative disease Myofascial pain Left knee joint pain with osteoarthritis Right shoulder joint pain with osteoarthritis History or Present Illness: HPI: Telemedicine visit with identity verified with full name as well as full date of , total time spent 11 minutes, telephone voice only 50-year-old female via telemedicine visit today regarding a refill of oxycodone patient reports she has been doing very well also taking methadone but is not a refill of this at this time patient reports she is doing fairly well to still have some significant pain however in the low back as well as in the mid back upper back shoulders bilaterally patient reports she is having some constipation as well and is still using orkc-fyr-oxsidpp remedies for this such as MiraLAX and Ex-Lax however not working significantly well patient reports he is staying very well-hydrated drinking plenty of fluids during the day especially water but still having some constipation issues. Patient has a appointment with her primary care physician next week to discuss other alternatives for constipation as her insurance was unable to cover the medications that we had suggested including Amitiza, Linzess, Symproic. Patient reports otherwise she is doing fairly well beneficial very stable regimen about 60% improvement with the medications alone. Patient reports no new motor or sensory deficits. Patient has had appropriate K tracks report as well as appropriate urinalyses to date as well. We will electronically prescribe oxycodone with patient with instructions and side effects beware of discussed. Patient will follow up in approximately 30 days as scheduled. HUONG JOSEPH MD May 29, 2021 16:52
--- NOTE | 2021-05-29 17:58 | NUR ---
Pt. called clinic requesting a refill on her oxycodone. Pt. denies any new health issues or side effects but states her avg pain level is 9/10. Next appt. and pharmacy verified. Dr. Francisco spoke with pt per phone prior to E-scribe with the pharmacy. Merritt Srivastava RN
== END | disposition home or self-care (01) ==
LOC: PNCL 13:24
PROVIDERS: ATTEND Anesthesiology
DX: M51.16 Intervertebral disc disorders with radiculopathy, lumbar region (principal); M50.10 Cervical disc disorder with radiculopathy, unspecified cervical region; M79.18 Myalgia, other site; M17.12 Unilateral primary osteoarthritis, left knee; M19.011 Primary osteoarthritis, right shoulder; Z79.899 Other long term (current) drug therapy; Z88.6 Allergy status to analgesic agent
CPT/HCPCS: G0463

== ENCOUNTER → 2021-06-11 | Outpatient (CLI) | payer BC ==
--- NOTE | 2021-06-11 16:27 | PDOC ---
Progress Note - Pain Clinic Date of Service: DOS: DATE: 06/11/21 TIME: 16:25 Diagnosis: Dx: Lumbar radiculopathy lumbar degenerative disease lumbar herniated disc Cervical radiculopathy with cervical degenerative disease Myofascial pain Left knee joint pain with osteoarthritis Right shoulder joint pain with osteoarthritis History or Present Illness: HPI: Telemedicine visit today with patient's identity verified with full identification as well as full date of , total time spent 12 minutes telemedicine telephone voice only. 50-year-old female via telephone medicine visit today requesting refill of Savella. Patient reports she is doing very well with this patient also taking methadone and oxycodone but does not need refills of those at this time patient reports that the Savella does decrease the fibromyalgia myofascial myalgias that she experiences and feels that it is beneficial and has no specific side effects with the medication. Patient has been on very stable regimen has had appropriate K tracks reporting as well as appropriate urinalyses to date as well. We discussed options with the patient and we will refill her medication for a 30-day refill. Patient will follow up in approximately 30 days as scheduled. Physical Exam: PE: HUONG JOSEPH MD Jun 11, 2021 16:27
== END | disposition home or self-care (01) ==
LOC: PNCL 15:12
PROVIDERS: ATTEND Anesthesiology
DX: M51.16 Intervertebral disc disorders with radiculopathy, lumbar region (principal); M50.10 Cervical disc disorder with radiculopathy, unspecified cervical region; M79.18 Myalgia, other site; M17.12 Unilateral primary osteoarthritis, left knee; M19.011 Primary osteoarthritis, right shoulder; Z79.899 Other long term (current) drug therapy; Z88.6 Allergy status to analgesic agent
CPT/HCPCS: G0463

== ENCOUNTER → 2021-06-13 | Outpatient (CLI) | payer BC ==
--- NOTE | 2021-06-13 14:10 | KCIC ---
EXAM: Sacrum and coccyx, 3 views. HISTORY: Pain. COMPARISON: None. FINDINGS: 3 views of the sacrum and coccyx are obtained. No displaced fracture is seen. 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 There is degenerative change involving the lower lumbar spine. There is marginal spurring involving both acetabulum. IMPRESSION: No acute osseous finding. Electronically signed by: Ramona Guajardo MD (06/13/2021 2:08 PM) [id number]
== END ==
LOC: KCIC 13:11
PROVIDERS: ATTEND Family Medicine
DX: M53.3 Sacrococcygeal disorders, not elsewhere classified (principal); M47.816 Spondylosis without myelopathy or radiculopathy, lumbar region; M77.8 Other enthesopathies, not elsewhere classified
CPT/HCPCS: 72220

== ENCOUNTER → 2021-06-27 | Outpatient (CLI) | payer BC ==
--- NOTE | 2021-06-27 15:23 | PDOC ---
Progress Note - Pain Clinic Date of Service: DOS: DATE: 06/27/21 TIME: 15:16 Diagnosis: Dx: Lumbar radiculopathy with lumbar degenerative disc disease and lumbar herniated disc Cervical radiculopathy with cervical degenerative disease Myofascial pain Left knee joint pain with osteoarthritis Right shoulder joint pain with osteoarthritis Coccygodynia History or Present Illness: HPI: 50-year-old female returns for follow-up status post medication management with both methadone and oxycodone patient reports he is doing fairly well with this with only about a 60% improvement overall with medications has a new finding today of tailbone pain patient reports is excruciating she has not had any falls or injuries to the tailbone or coccyx area that she is aware of had plain films done at her primary care's office which we reviewed with her today showing no acute fractures or osseous abnormalities patient reports her pain is a 10 on scale 10 is worst 10 on average 9 its least is a 10 today patient describes aching sharp shooting burning in the tailbone itself inferiorly worse with sitting standing also is unable to sleep because of the pain when she lays on her back patient cannot lay on her right or left side she reports when she is sleeping because of the pain in her shoulders and now cannot sleep on her back because of pain in the tailbone, and reports that she has not had any sleep for almost a week. Patient reports no side effects with her medication but not controlling the new pain at all. Physical Exam: VS: Blood pressure is 143/85 pulse 107 respirations 18 temperature 98.6 F weight is 194 pounds PE: PHYSICAL EXAMINATION: GENERAL: The patient is awake, alert, oriented, appropriate, very pleasant in demeanor HEENT: Shows normocephalic, atraumatic. Extraocular movements are intact with strabismus. Oral cavity: Mucous membranes moist and pink. Dentition is intact. NECK: Shows anterior throat supple without palpable lymphadenopathy noted. Swallow reflex symmetrical. CHEST: Shows normal on inspection. Breath sounds are clear bilaterally. HEART: Shows S1, S2 clear. No murmurs auscultated. ABDOMEN: Soft, nontender, nondistended. No palpable organomegaly is noted. BACK: Shows spine grossly in the midline. Normal-appearing cervical lordotic curvature. There is slightly increased thoracic kyphosis, some flattening of the lumbar lordotic curvature. Lumbar paraspinous muscles show symmetrical on inspection, on palpation shows some moderate tenderness diffusely throughout the upper, middle and lower distribution of the paraspinous muscles, symmetrical but firm and tender throughout, but without specific trigger points, without radiation of pain. The patient has good rotational motion of the lumbar spine. Patient's sacrum and coccyx shows significant tenderness with even moderate palpation over the sacrococcygeal junction and moderate pain in the mid sacral distribution as well no displacement no obvious abnormalities are palpable. EXTREMITIES: Lower extremities show deep tendon reflexes 1+ in the patellar and tendo calcaneus tendons. Motor exam is 4 on a scale of 5 with right dorsiflexion, extension, quadriceps and hamstring flexion and 4/5 on the left. Peripheral pulses are 1 posterior tibial. No peripheral edema is noted maria alejandra aterally. Lower extremities are warm and dry. Upper extremities show deep tendon reflexes 2+ in the bicep tricep tendons motor exam is strong with lead slot technician strength rated 4-5 bilaterally as is bicep and tricep flexion. SKIN: Shows warm and dry, good turgor. No edema. No sores, rashes or bruising throughout. Procedure: Procedure: Options were discussed with the patient. Patient's chart was reviewed as her current medication regimen updated current review of systems updated today as well. We will recommend a donut for displacement of pressure off of the distal sacrum and coccyx. Also, recommend anti-inflammatory currently [id number] Aleve twice daily for the next 2 weeks with food. Patient is not in need of refill of her methadone or oxycodone at this time and will call in approximately 30 days when this is due. Patient has had appropriate K tracks report as well as appropriate urinalyses to date as well. Medication Injected: Med Injected: None Condition at Discharge: Condition at Discharge: Condition at discharge is stable. HUONG JOSEPH MD Jun 27, 2021 15:23
== END | disposition home or self-care (01) ==
LOC: PNCL 12:53
PROVIDERS: ATTEND Anesthesiology
DX: M51.16 Intervertebral disc disorders with radiculopathy, lumbar region (principal); M50.10 Cervical disc disorder with radiculopathy, unspecified cervical region; M79.18 Myalgia, other site; M17.12 Unilateral primary osteoarthritis, left knee; M19.011 Primary osteoarthritis, right shoulder; M53.3 Sacrococcygeal disorders, not elsewhere classified; Z79.84 Long term (current) use of oral hypoglycemic drugs; Z79.899 Other long term (current) drug therapy; Z98.890 Other specified postprocedural states; Z88.6 Allergy status to analgesic agent
CPT/HCPCS: 99212; G0463

== ENCOUNTER → 2021-08-01 | Outpatient (CLI) | payer BC ==
--- NOTE | 2021-08-01 14:53 | PDOC ---
Progress Note - Pain Clinic Date of Service: DOS: DATE: 08/01/21 TIME: 14:51 Diagnosis: Dx: Lumbar radiculopathy with lumbar degenerative disease and lumbar herniated disc Cervical radiculopathy with cervical degenerative disc disease Myofascial pain Left knee joint pain with osteoarthritis Right shoulder joint pain with osteoarthritis Myofascial pain Coccygodynia History or Present Illness: HPI: Telemedicine visit today with patient's identity verified with full name as well as full date of , total time spent 11 minutes, telephone voice only 50-year-old female via telemedicine visit today requesting refill of oxycodone and methadone patient has been on very stable regimen with both of the medications reports about a 70% improvement overall with the medications. Patient reports that her tailbone pain is beginning to resolve as we had advised her to use a donut device when seated and doing this with good results thus far. Patient also taking anti-inflammatories and I Clofenax gel which is helpful also. Patient reports no side effects with her medications and has been getting along fairly well without side effects once again. Patient has had appropriate K tracks report as well as appropriate urinalyses to date as well. We discussed options, and will refill patient's oxycodone as well as methadone for 1 month prescription. Patient was given instructions well side effects aware of each of the medications and will follow up in approximately 30 days as scheduled. Physical Exam: PE: HUONG JOSEPH MD August 01, 2021 14:53
== END | disposition home or self-care (01) ==
LOC: PNCL 14:04
PROVIDERS: ATTEND Anesthesiology
DX: M51.16 Intervertebral disc disorders with radiculopathy, lumbar region (principal); M50.10 Cervical disc disorder with radiculopathy, unspecified cervical region; M79.18 Myalgia, other site; M17.12 Unilateral primary osteoarthritis, left knee; M19.011 Primary osteoarthritis, right shoulder; M53.3 Sacrococcygeal disorders, not elsewhere classified; Z79.899 Other long term (current) drug therapy; Z88.6 Allergy status to analgesic agent
CPT/HCPCS: 99212; G0463

== ENCOUNTER → 2021-08-27 | Outpatient (CLI) | payer BC ==
[~2021-08-27] MED LIST changes: +LIDOCAINE/PRILOCAINE TOPICAL CREAM 5GM TUBE. TP ONE
--- NOTE | 2021-08-27 12:47 | PDOC ---
Progress Note - Pain Clinic Date of Service: DOS: DATE: 08/27/21 TIME: 12:42 Diagnosis: Dx: Lumbar radiculopathy with lumbar degenerative disease and lumbar herniated disc Cervical radiculopathy with cervical degenerative disc disease Myofascial pain Left knee joint pain with osteoarthritis Right shoulder joint pain with osteoarthritis Myofascial pain Coccydynia History or Present Illness: HPI: 50-year-old female returns for follow-up status post medication managed with methadone and oxycodone patient reports she is doing fairly well has been on very stable regimen however is having some significant constipation more recently is actually seeing a crop quantitative geneticist tomorrow regarding constipation and sacral pain. Patient still has pain in the coccyx and sacrum reports worse with sitting also now worse with changing positions it is disturbing her sleep significantly is getting worse with time patient reports this moved up from the original area of the low part of the tailbone and into the mid tailbone now and demonstrates in the mid sacrum with indicating where the pain is by pointing with the finger. Patient reports a 10 on scale 10 is worse over the past week 9 on average 8 at its least is a 9 today patient reports it has not gotten better and is getting worse even with sitting on a donut and getting pressure released from the area. Patient reports reports its painful with sleeping on her back is having difficulty sleeping in any position. Patient reports not getting much rest because of this and this is making her pain worse. Patient reports no other side effects with medications. Patient has had appropriate K tracks report as well as appropriate urinalyses to date as well. Physical Exam: VS: Blood pressure 120/74 pulse 94 respirations 16 temperature 98.3 F height is 5 foot 4 inches weight is 194 pounds. PE: PHYSICAL EXAMINATION: GENERAL: The patient is awake, alert, oriented, appropriate, very pleasant in demeanor HEENT: Shows normocephalic, atraumatic. Extraocular movements are intact. Oral cavity: Mucous membranes moist and pink. Dentition is intact. NECK: Shows anterior throat supple without palpable lymphadenopathy noted. Swallow reflex symmetrical. CHEST: Shows normal on inspection. Breath sounds are clear bilaterally. HEART: Shows S1, S2 clear. No murmurs auscultated. ABDOMEN: Soft, nontender, nondistended. No palpable organomegaly is noted. BACK: Shows spine grossly in the midline. Normal-appearing cervical lordotic curvature. There is slightly increased thoracic kyphosis, some minor flattening of the lumbar lordotic curvature. Lumbar paraspinous muscles show symmetrical on inspection, on palpation shows some moderate tenderness diffusely throughout the upper, middle and lower distribution of the paraspinous muscles without specific trigger points, without radiation of pain. The patient has good rotational motion of the lumbar spine, both laterally as well as extension and flexion without significant difficulty. Patient has significant tenderness over the mid to the inferior sacrum diffusely with palpation but without specific radiation. EXTREMITIES: Lower extremities show deep tendon reflexes 1+ in the patellar and tendo calcaneus tendons. Motor exam is 4 on a scale of 5 with right dorsiflexion, extension, quadriceps and hamstring flexion and 4/5 on the left. Peripheral pulses are 1+ posterior tibial. No peripheral edema is noted bilaterally. Lower extremities are warm and dry to touch, equal in color and appearance. SKIN: Shows warm and dry, good turgor. No edema. No sores, rashes or bruising throughout. Procedure: Procedure: Options were discussed with patient. Patient's old chart was reviewed as her current medication regimen updated current review of systems updated today as well. We will refill patient's methadone and oxycodone with instructions side effects beware discussed. Also, will prescribe new medication of Emla cream to the area of tenderness on the sacrum 3 times daily. Patient was given instru ctions well side effects aware with each of medications. Patient will follow-up after gastroenterology evaluation tomorrow. Medication Injected: Med Injected: None Condition at Discharge: Condition at Discharge: Condition at discharge is stable. HUONG JOSEPH MD August 27, 2021 12:47
== END | disposition home or self-care (01) ==
LOC: PNCL 11:08
PROVIDERS: ATTEND Anesthesiology
DX: M51.16 Intervertebral disc disorders with radiculopathy, lumbar region (principal); M50.10 Cervical disc disorder with radiculopathy, unspecified cervical region; M79.18 Myalgia, other site; M17.12 Unilateral primary osteoarthritis, left knee; M19.011 Primary osteoarthritis, right shoulder; Z79.899 Other long term (current) drug therapy; Z88.6 Allergy status to analgesic agent
CPT/HCPCS: 99212; G0463